=== PATIENT | female | born 1945 | race Caucasian/White ===

== ENCOUNTER → 2016-11-14 | Outpatient (CLI) | payer BC ==
[~2016-11-14] MED LIST: ANAS1TAB19 PO; ASCO10003 PO; ASPI325T39 PO; CALC600T9 PO; CHOL2000 PO; IBUP-1050 PO; MULT-513 PO; OMEG1CAP26 PO; OSTEO BI FLEX PO
[2016-11-14 13:49] VITALS: BP_SYST 129; BP_SYST 144; BP_DIAS 77; BP_DIAS 80; PULSE 56; TEMP 36.3; O2SAT 99
--- NOTE | 2016-11-14 14:48 | Radiation Oncology Follow-Up ---
Radiation Oncology Follow-Up Date of Visit Nov 14, 2016. 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 She had been having concerns about weight loss. She also had a firm area below the incision line for which she was concerned. There was no pain associated. On examination of fibrous tissue was noted. She had been scheduled for mammography 10/26/2016. We asked her to go ahead with evaluation and see us post-imaging for review. She has been doing well and feels that the area of fibrous tissue is unchanged from previous. She has not developed any changes of the axilla. She's had no swelling of her arm. We had discussed an evaluation by her primary physician due to the weight loss. She did have thyroid function studies and these were found to be normal. Allergies Coded Allergies: Molds and Smuts (Verified Allergy, Intermediate, SHORTNESS OF BREATH, 08/10) nasal congestion Shellfish (Verified Allergy, Unknown, Indigestion, 09/13/14) Penicillins (Verified Adverse Reaction, Unknown, GI UPSET, 09/13/14) Home Medications Scheduled Anastrozole (Arimidex), 1 MG PO DAILY Ascorbic Acid (Vitamin C), 1 TAB PO DAILY Aspirin (Aspirin Ec), 325 MG PO DAILY Calcium Carbonate-Vitamin D (Calcium + D), 1 TAB PO BID Cholecalciferol (Vitamin D3), 2,000 UNIT PO DAILY Multivitamins/Minerals (Mvi With Minerals), 1 TAB PO DAILY [place]-3 Fatty Acids ([place]-3 Fish Oil), 1 CAP PO DAILY [osteo bi-Flex], 1 TAB PO DAILY Scheduled PRN Ibuprofen (Advil), 200 MG PO TID PRN for Pain Review of Systems Gastrointestinal: Symptoms: WNL Oral: Symptoms: No Problems Respiratory: Symptoms: WNL Urinary: Symptoms: WNL Skin: Symptoms: No Problems Breast: Right Upper Arm Measurement: 25.5 Right Mid Arm Measurement: 23.5 Right Wrist Measurement: 15.5 Left Upper Arm Measurement: 26.5 Left Mid Arm Measurement: 23.3 Left Wrist Measurement: 15.0 Arm Dominence: Right Physical Exam Vital Signs Date Time Temp Pulse Resp B/P Pulse Ox O2 Delivery O2 Flow Rate FiO2 11/14/16 13:49 36.3 56 16 144/80 99 129/77 Fatigue: None General Appearance: no apparent distress, + thin Eyes: normal inspection, EOMI ENT: normal ENT inspection, hearing grossly normal Neck: no adenopathy, thyroid normal Respiratory/Chest: lungs clear, no respiratory distress, no accessory muscle use Breast: Breast examination reveals well-healed incisions of the right breast. She continues to have a firm area of nodular fibrous tissue just below the central portion of the incision line. There are no areas of tenderness. There is no axillary adenopathy. This is unchanged from previous. She has mild telangiectasis in the inframammary fold which is unchanged. Using the [place] score cosmesis she has a good outcome. The left breast showed no masses or tenderness and no axillary adenopathy. Cardiovascular: regular rate, rhythm, no gallop, no murmur Abdomen: non tender Extremities: no pedal edema Neurologic/Psychiatric: no motor/sensory deficits, alert, normal mood/affect Skin: warm/dry Lymphatic: no adenopathy Laboratory Studies She brought thyroid function studies today for review. She did TSH that was 2.89 and a T4 that was 0.91 use were both within normal limits. Additional Studies BILATERAL DIGITAL DIAGNOSTIC MAMMOGRAM TOMOSYNTHESIS WITH CAD AND TARGETED RIGHT ULTRASOUND: 10/26/2016 CLINICAL HISTORY: History of right breast cancer status post right lumpectomy, here for routine follow-up. The patient has lost approximately 25 pounds in the last year. She reports that the surgical bed feels more prominent to her than it was previously, which she feels could be due to her weight loss. TECHNIQUE: Breast tomosynthesis in addition to standard 2D mammography was performed. Current study was also evaluated with a Computer Aided Detection (CAD ) system. Bilateral CC and MLO 2-D and tomosynthesis views and spot magnification right cc and ML views were obtained. COMPARISON: Comparison is made to exams dated: 10/19/2015 ultrasound, 2014 mammogram, 04/06/2015 ultrasound, 04/06/2015 mammogram, 08/18/2014 mammogram, and 08/06/2014 ultrasound - [facility]. BREAST COMPOSITION: There are scattered areas of fibroglandular density in both breasts. FINDINGS: There are stable post surgical changes in the right central breast from prior lumpectomy, including stable density, architectural distortion, and surgical clips at the lumpectomy bed. The density at the lumpectomy bed is stable compared to the October 2015 exam but decreased since the April 2015 exam. Spot magnification views of the lumpectomy bed demonstrate no suspicious masses or clusters of calcifications. The remainder of both breasts are stable compared to prior exams, without suspicious masses, calcifications, or areas of architectural distortion noted. Targeted ultrasound was performed of the lumpectomy bed in the right 6:00 breast , at the site of the increased prominence pointed out by the patient. There is a complex fluid collection noted at the lumpectomy bed which appears decreased compared to the prior exam, currently measuring 1.3 x 0.6 x 1.2 cm, previously measuring 2.0 x 0.4 x 2.2 cm. Echogenic material and septations are now seen within the collection, which can be seen with a chronic fluid collection. Findings are benign and most compatible with a postsurgical seroma. No suspicious masses or other suspicious sonographic abnormalities are evident at the lumpectomy bed. IMPRESSION: ACR BI-RADS CATEGORY 2: BENIGN, TARGETED ULTRASOUND ACR BI-RADS CATEGORY 2: BENIGN Expected post surgical changes in the right breast from prior lumpectomy, with interval decrease in size of the small postsurgical seroma at the lumpectomy bed. There is no mammographic evidence of malignancy in either breast. Recommend clinical follow-up for the increased prominence of the surgical bed on palpation, which could be due to interval weight loss; any decision to biopsy should be based on clinical grounds. Also recommend routine bilateral mammograms in one year. The patient has been verbally notified of the results. Approximately 10% of breast cancers are not detected with mammography. A negative mammographic report should not delay biopsy if a clinically suggestive mass is present. Regina Castañeda M.D. /:10/26/2016 12:08:44 Wash Box Operator: Nicci Kiran, [facility] letter sent: Normal 1/2 BI-RADS Code: ACR BI-RADS Category 2: Benign Ultrasound BI-RADS: ACR BI-RADS Category 2: Benign Dictated by: Regina Castañeda MD Signed by: Regina Castañeda MD Assessment & Plan Plan: Her imaging studies were reviewed. She'll be due for recheck mammography in October. This has been scheduled. Continue regular follow-up with medical oncology, Dr. Roberts, and Dr. Yee. We asked to return to our office in 1 year. She continues on Arimidex. We did review the availability of low density CT scanning for screening. She continues to smoke. She states she is down to 1 cigarette per day. She'll continue to try to stop smoking. We have given her information about the program. I've asked her to call if she would like to be scheduled for a visit and to discuss the low density scanning. This would be a "shared decision-making" visit. She would then go on to have this scan scheduled and performed. She is going to think about this and let us know. Total Time In Follow-Up I spent 20 minutes speaking to the patient and performing examination. I spent 15 minutes reviewing information in completing this note. Copy To Dimas Yee MD; Bettina Gilmore CRNP; Irving Deal M.D. Problem Qualifiers (1) Breast cancer: Breast location: lower outer quadrant of breast Patient gender: female Laterality: right Qualified Codes: C50.511 - Malignant neoplasm of lower- outer quadrant of right female breast
== END | disposition home or self-care (01) ==
LOC: C.ONC 13:42
PROVIDERS: ATTEND Radiology Radiation Oncology
DX: Z08 Encounter for follow-up examination after completed treatment for malignant neoplasm (principal); Z92.3 Personal history of irradiation; Z85.3 Personal history of malignant neoplasm of breast

== ENCOUNTER → 2017-09-24 | Outpatient (CLI) | payer BC ==
--- NOTE | 2017-09-27 08:14 | MAMMOGRAPHY REPORT ---
BILATERAL DIGITAL DIAGNOSTIC MAMMOGRAM TOMOSYNTHESIS WITH CAD AND TARGETED RIGHT ULTRASOUND: 09/24/20 17 CLINICAL HISTORY: History of right breast cancer status post right lumpectomy, here for routine follo w-up. The patient again reports weight loss over the past few years, which she attributes to her Daron midex. She denies any new palpable lumps or other new complaints. TECHNIQUE: Breast tomosynthesis in addition to standard 2D mammography was performed. Current study was also evaluated with a Computer Aided Detection (CAD) system. Bilateral CC and MLO 2-D and tomosy nthesis images and spot magnification right cc and ML views were obtained. COMPARISON: Comparison is made to exams dated: 10/26/2016 ultrasound, 10/26/2016 mammogram, 10/19/20 15 mammogram, 10/19/2015 ultrasound, 04/06/2015 mammogram, and 08/06/2014 mammogram - [facility]. BREAST COMPOSITION: There are scattered areas of fibroglandular density in both breasts. FINDINGS: Again noted are post surgical changes in the right central breast from prior lumpectomy, i ncluding density, architectural distortion, and surgical clips at the lumpectomy bed. Spot magnifica tion views of the lumpectomy bed demonstrate a new small 3 mm cluster of coarse heterogeneous calcifi cations at the anterior aspect of the lumpectomy bed. The calcifications are shown to be within a ro und circumscribed 4 mm fat density mass on the cc tomosynthesis images, consistent with an oil cyst f rom fat necrosis. The calcifications are probably benign and likely represent fat necrosis. A vague 11 mm asymmetry is seen within the right lateral breast on the cc view, which likely represen ts normal fibroglandular tissue although ultrasound was performed. The remainder of both breasts are stable compared to prior exams, without suspicious masses, calcifications, or areas of architectural distortion noted. There is diffusely increased density of bilateral breasts compared to prior exams , consistent with interval weight loss. Targeted ultrasound was performed of the right lateral breast in the region of the mammographic asymm etry. No suspicious masses or other suspicious sonographic abnormalities are evident. There is ill- defined hypoechoic tissue at the surgical bed in the right 6 to 7:00 breast, consistent with postsurg ical changes. Given the lack of a suspicious sonographic abnormality, the right lateral breast asymm etry is benign and compatible with normal fibroglandular tissue. IMPRESSION: ACR-BI-RADS CATEGORY 3: PROBABLY BENIGN, TARGETED ULTRASOUND ACR-BI-RADS CATEGORY 3: PRO BABLY BENIGN 1. New small 3 mm cluster of calcifications at the anterior aspect of the lumpectomy bed, which are probably benign and likely represent fat necrosis. Recommend follow-up diagnostic tomosynthesis mamm ograms of the right breast in 6 months to confirm stability. 2. No mammographic evidence of malignancy in the left breast. Advise follow up in one year. The patient has been verbally notified of the results. Approximately 10% of breast cancers are not detected with mammography. A negative mammographic report should not delay biopsy if a clinically suggestive mass is present. Regina Castañeda M.D. ah/:09/24/2017 15:18:18 Spar Finisher: Angela HAHN)(Jessica), [facility] letter sent: Follow Up Recommended 3 BI-RADS Code: ACR-BI-RADS Category 3: Probably Benign Ultrasound BI-RADS: ACR-BI-RADS Category 3: Pr obably Benign
== END | disposition home or self-care (01) ==
LOC: C.MAMM 13:41
PROVIDERS: ATTEND Nurse Practitioner Family
DX: Z08 Encounter for follow-up examination after completed treatment for malignant neoplasm (principal); Z85.3 Personal history of malignant neoplasm of breast; R92.1 Mammographic calcification found on diagnostic imaging of breast

== ENCOUNTER → 2017-11-14 | Outpatient (CLI) | payer BC ==
[~2017-11-14] MED LIST changes: +PSYL48.59 PO
[2017-11-14 13:13] VITALS: BP 106/61; PULSE 63; TEMP 36.3; O2SAT 95
--- NOTE | 2017-11-14 14:06 | Radiation Oncology Follow-Up ---
Radiation Oncology Follow-Up Date of Visit Nov 14, 2017. Reason For Visit Annual follow up Radiation Completion Date finished 01-03-2015 Diagnosis (1) Breast cancer Status: Resolved Onset Date: 08/18/2014 Histology Subtype: ductal Stage: ll Permanent Comment: Family history of breast cancer Self detected right breast mass Status post ultrasound-guided biopsy 08/18/2014 revealing invasive ductal carcinoma Estrogen receptor positive, progesterone receptor positive, HER-2/luisa negative Status post right partial mastectomy and sentinel lymph node biopsy 09/13/2014 Pathologic stage pTIc pN1 M0 Oncotype DX score of 10 Status post completion of radiation therapy 01/03/2015 received 6120 cGy Last Edited By: Keeley Sher on Nov 14, 2017 14:16 Interim History She has been doing well over this past year. She has noted no changes to her breast. She has an area of fibrous tissue in the inframammary fold in this unchanged from previous. She has no masses or tenderness and no change in the axilla. She's had no swelling of her arm. She is up-to-date on mammography. She is on Arimidex. Her only side effect is dryness of the skin and constipation. She did undergo a colonoscopy recently and this showed diverticulosis. She has been trying to increase fiber in the diet to help with constipation. Allergies Coded Allergies: Molds and Smuts (Verified Allergy, Intermediate, SHORTNESS OF BREATH, 08/10) nasal congestion Shellfish (Verified Allergy, Unknown, Indigestion, 09/13/14) Penicillins (Verified Adverse Reaction, Unknown, GI UPSET, 09/13/14) Home Medications Scheduled Anastrozole (Arimidex), 1 MG PO DAILY Ascorbic Acid (Vitamin C), 1 TAB PO DAILY Aspirin (Aspirin Ec), 325 MG PO DAILY Calcium Carbonate-Vitamin D (Calcium + D), 1 TAB PO BID Multivitamins/Minerals (Mvi With Minerals), 1 TAB PO DAILY [place]-3 Fatty Acids ([place]-3 Fish Oil), 1 CAP PO DAILY Psyllium (Metamucil), 1 TSP PO DAILY [osteo bi-Flex], 1 TAB PO DAILY Scheduled PRN Ibuprofen (Advil), 200 MG PO TID PRN for Pain Review of Systems Gastrointestinal: Symptoms: Constipation GI Comments: chronic constipation takes metamucil daily Oral: Symptoms: No Problems Respiratory: Symptoms: Moist Cough Other Respiratory: " I am getting over a cold " Urinary: Symptoms: Nocturia Comments: nocturia times 3 Skin: Symptoms: No Problems Other Skin Symptoms: " dry " Breast: Right Upper Arm Measurement: 22.5 Right Mid Arm Measurement: 21.5 Right Wrist Measurement: 15.0 Left Upper Arm Measurement: 23.5 Left Mid Arm Measurement: 21.5 Left Wrist Measurement: 14.5 Arm Dominence: Right Patient Cosmetic Evaluation: Excellent Staff Cosmetic Evalaluation: Excellent Physical Exam Vital Signs Date Time Temp Pulse Resp B/P (MAP) Pulse Ox O2 Delivery O2 Flow Rate FiO2 11/14/17 13:13 36.3 63 18 106/61 95 Fatigue: None General Appearance: no apparent distress Eyes: normal inspection, EOMI ENT: normal ENT inspection, hearing grossly normal Neck: no adenopathy, thyroid normal Respiratory/Chest: lungs clear, no respiratory distress, no accessory muscle use Breast: Breast examination reveals well-healed incisions of the right breast. In the inframammary fold there is area of fibrous tissue in the center of the incision line. This is similar to previous examination. She has no skin retractions or nipple changes. There is no axillary adenopathy. Using the [place] score cosmesis she has a good outcome. Left breast showed no masses or tenderness and no axillary adenopathy. Cardiovascular: regular rate, rhythm, no gallop, no murmur Extremities: no pedal edema Neurologic/Psychiatric: no motor/sensory deficits, alert, normal mood/affect Skin: warm/dry Pain Management Patient Reports Pain: No Side: Bilateral Patient Preferred Pain Scale: 0 - 10 Initial Pain Intensity: 0.0 Pain Management Plan She denied pain therefore requires no pain management. Laboratory Laboratory Results: not applicable Pathology Pathology Results: not applicable Imaging Imaging Studies: were reviewed, and pertinent findings noted below Imaging Comments Patient: NANCY GOODEN [facility] Rec: [id number] Address[address]: [address] Address[address]: [address] Ac[address] ID: [id number] Date: 1945 Sex: F Ref Phy: Keeley Sher PA-C Att Phy: Suzanne Gimenez CRNP [place] Phy: Dimas Yee MD Inter Phy: Regina Castañeda MD [facility] Zip: [place] [address] SC: [id number] Report #: [id number] Whipped Topping Finisher: VANNESSA Diagnosis: 12 MONTH F/U; HX BREAST CA Service Date: 09/24/17 MNE: [id number] Ordering Dr: Suzanne Gimenez CC: Suzanne Gimenez .SAMARA CONF: DICTATED BY: Regina Castañeda MD MAMMOGRAPHY REPORT BILATERAL DIGITAL DIAGNOSTIC MAMMOGRAM TOMOSYNTHESIS WITH CAD AND TARGETED RIGHT ULTRASOUND: 09/24/2017 CLINICAL HISTORY: History of right breast cancer status post right lumpectomy, here for routine follow-up. The patient again reports weight loss over the past few years, which she attributes to her Arimidex. She denies any new palpable lumps or other new complaints. TECHNIQUE: Breast tomosynthesis in addition to standard 2D mammography was performed. Current study was also evaluated with a Computer Aided Detection (CAD ) system. Bilateral CC and MLO 2-D and tomosynthesis images and spot magnification right cc and ML views were obtained. COMPARISON: Comparison is made to exams dated: 10/26/2016 ultrasound, 2015 mammogram, 10/19/2015 mammogram, 10/19/2015 ultrasound, 04/06/2015 mammogram , and 08/06/2014 mammogram - [facility]. BREAST COMPOSITION: There are scattered areas of fibroglandular density in both breasts. FINDINGS: Again noted are post surgical changes in the right central breast from prior lumpectomy, including density, architectural distortion, and surgical clips at the lumpectomy bed. Spot magnification views of the lumpectomy bed demonstrate a new small 3 mm cluster of coarse heterogeneous calcifications at the anterior aspect of the lumpectomy bed. The calcifications are shown to be within a round circumscribed 4 mm fat density mass on the cc tomosynthesis images, consistent with an oil cyst from fat necrosis. The calcifications are probably benign and likely represent fat necrosis. A vague 11 mm asymmetry is seen within the right lateral breast on the cc view, which likely represents normal fibroglandular tissue although ultrasound was performed. The remainder of both breasts are stable compared to prior exams, without suspicious masses, calcifications, or areas of architectural distortion noted. There is diffusely increased density of bilateral breasts compared to prior exams, consistent with interval weight loss. Targeted ultrasound was performed of the right lateral breast in the region of the mammographic asymmetry. No suspicious masses or other suspicious sonographic abnormalities are evident. There is ill-defined hypoechoic tissue at the surgical bed in the right 6 to 7:00 breast, consistent with postsurgical changes. Given the lack of a suspicious sonographic abnormality, the right lateral breast asymmetry is benign and compatible with normal fibroglandular tissue. IMPRESSION: ACR-BI-RADS CATEGORY 3: PROBABLY BENIGN, TARGETED ULTRASOUND ACR-BI -RADS CATEGORY 3: PROBABLY BENIGN 1. New small 3 mm cluster of calcifications at the anterior aspect of the lumpectomy bed, which are probably benign and likely represent fat necrosis. Recommend follow-up diagnostic tomosynthesis mammograms of the right breast in 6 months to confirm stability. 2. No mammographic evidence of malignancy in the left breast. Advise follow up in one year. The patient has been verbally notified of the results. Approximately 10% of breast cancers are not detected with mammography. A negative mammographic report should not delay biopsy if a clinically suggestive mass is present. Regina Castañeda M.D. ah/:09/24/2017 15:18:18 Administrative Support Clerk: Angela BILL(Stacey)(Jessica), [facility] letter sent: Follow Up Recommended 3 BI-RADS Code: ACR-BI-RADS Category 3: Probably Benign Ultrasound BI-RADS: ACR- BI-RADS Category 3: Probably Benign Dictated by: Regina Castañeda MD Signed by: Regina Castañeda MD Assessment & Plan Plan: Continue with scheduled mammography. She continues on the anastrozole. We discussed different types of fiber products. She is going to try Benefiber rather than Metamucil. We discussed the area of fibrous tissue. This was evaluated with mammogram as well as ultrasound in September. The area at the 6 o 'clock position is felt to be postsurgical changes. There is no suspicious sonographic abnormality. We asked her to return to our office in 1 year. She may call she has any questions or concerns in the interim. We once again discussed smoking cessation today. She continues to only smoked 1 or less cigarettes per day. Total Time In Follow-Up I spent 20 minutes speaking to the patient performing examination. I spent 15 minutes reviewing information in completing this note. Copy To Dimas Yee MD; Suzanne Gimenez CRNP Problem Qualifiers (1) Breast cancer: Breast location: lower outer quadrant of breast Estrogen receptor status: positive Patient sex: female Laterality: right Qualified Codes: C50.511 - Malignant neoplasm of lower-outer quadrant of right female breast; Z17.0 - Estrogen receptor positive status [ER+]
== END | disposition home or self-care (01) ==
LOC: C.ONC 13:04
PROVIDERS: ATTEND Physician Assistant Medical
DX: Z08 Encounter for follow-up examination after completed treatment for malignant neoplasm (principal); Z92.3 Personal history of irradiation; Z85.3 Personal history of malignant neoplasm of breast

== ENCOUNTER → 2018-03-24 | Outpatient (CLI) | payer BC ==
[~2018-03-24] MED LIST changes: -CHOL2000 PO
--- NOTE | 2018-03-25 08:47 | MAMMOGRAPHY REPORT ---
UNILATERAL RIGHT DIGITAL DIAGNOSTIC MAMMOGRAM TOMOSYNTHESIS WITH CAD: 03/24/2018 CLINICAL HISTORY: 72-year-old woman with a personal history of right breast cancer status post breast conservation treatment presents for follow-up in the right breast for a small, 3 mm cluster of calci fications along the anterior aspect of the lumpectomy bed, that likely represents fat necrosis. TECHNIQUE: Right breast tomosynthesis in addition to standard 2D mammography was performed. Spot mag nification right CC and ML views were also obtained. Current study was also evaluated with a Compute r Aided Detection (CAD) system. COMPARISON: Comparison is made to exams dated: 09/24/2017 ultrasound, 09/24/2017 mammogram, 10/26/20 16 ultrasound, 10/26/2016 mammogram, 10/19/2015 ultrasound, and 10/19/2015 mammogram - [facility]. BREAST COMPOSITION: There are scattered areas of fibroglandular density in the right breast. FINDINGS: There is expected architectural distortion and surgical clips in the posterior retroareolar right breast, at the site of prior lumpectomy. The 3 mm cluster of calcifications noted at the ante rior aspect of the lumpectomy bed have coarsened comparing to the prior exam and a thin rim with luce nt center surrounding the coarse calcifications are evident on CC tomosynthesis slice 11/40, confirmi ng benign oil cysts/fat necrosis. No new suspicious mass, asymmetry, unexpected architectural distor tion or cluster of microcalcifications is seen. IMPRESSION: ACR BI-RADS CATEGORY 2: BENIGN There are coarsening calcifications within a benign oil cyst at the anterior aspect of the lumpectomy bed in the right breast, compatible with benign fat necrosis due to prior surgery. There is no mamm ographic evidence of malignancy in the right breast. The patient is due for annual bilateral mammogr aphy in September 2018, and would recommend remaining a diagnostic patient in case any additional view s and/or ultrasound may be needed. These results and recommendations were discussed with the patient at the time of the exam. Approximately 10% of breast cancers are not detected with mammography. A negative mammographic report should not delay biopsy if a clinically suggestive mass is present. Keisha Sotomayor M.D. ay/:03/24/2018 10:24:16 Toxicology Supervisor: Nicci BILL(Stacey)(M), [facility] letter sent: Normal 11/05 BI-RADS Code: ACR BI-RADS Category 2: Benign
== END | disposition home or self-care (01) ==
LOC: C.MAMM 09:37
PROVIDERS: ATTEND Nurse Practitioner Family
DX: R92.1 Mammographic calcification found on diagnostic imaging of breast (principal); Z85.3 Personal history of malignant neoplasm of breast

== ENCOUNTER 2025-01-15 08:32 | Inpatient (IN) ==
--- NOTE | 2025-01-15 08:42 | Emergency Department Note ---
Impression & Plan Acute hyponatremia Admission ED Provider Note HPI: History obtained from patient, bedside RN via EMS report. The patient is a 79-year-old female with history of recent subarachnoid hemorrhage, who presents to the emergency department from her nursing facility ([facility]) with a chief complaint of generalized fatigue. Patient states she has felt this way for the past 2 days. Per report, patient had bradycardia in the 40s on EMS arrival and was given atropine with good improvement in her heart rate. On arrival here to the ED the patient is listless appearing but otherwise alert to verbal stimuli, she is able to follow commands, she is oriented to place and time. Patient denies any chest pain or shortness of breath. ROS: - Per HPI Differential Diagnosis: Sepsis, UTI, pneumonia, dehydration/acute kidney injury, intracranial hemorrhage, stroke, amongst other potential pathologies. *Outpatient medications and allergy history reviewed. PE: General: Alert and oriented, no acute distress, frail-appearing HEENT: Normocephalic, trachea midline Eyes: Extraocular eye movement is intact, no scleral erythema Pulmonary: Clear to auscultation bilaterally, no wheezing Cardio: Regular rate and rhythm GI: Abdomen is soft to palpation : No suprapubic tenderness MSK: No evidence of trauma or malformation of the extremities, no edema Skin: No evidence of rash Neuro: Alert, no focal deficits, patient follows commands appropriately Psychiatric: Cooperative INDEPENDENT INTERPRETATIONS: classroom monitor: (As interpreted by myself): - An order was placed for continuous cardiac monitoring - Patient was noted to be in sinus rhythm with a rate of 89 EKG: (As interpreted by myself): Rate: 90 Rhythm: Normal sinus rhythm Intervals: Within normal limits ST changes: No ST elevation Time: 0839 Chest x-ray: (As interpreted by myself): Chronic right pleural effusion, new left lower lobe infiltrate Interventions provided in ED: -IV fluid bolus Medical Decision Making: IV was established and lab work obtained, patient was maintained on surveillance system monitor. Lab work shows no leukocytosis, hemoglobin is normal, platelet count is normal, CMP shows critical hyponatremia at 118, otherwise no evidence of acute kidney injury or critical abnormalities. Troponin is negative. CT imaging of head does not show any evidence of any new acute intracranial hemorrhage. Viral panel testing was obtained and is negative. On my reassessment the patient remained stable, heart rate is within normal limits, EKG per my interpretation here in the ED shows normal sinus rhythm with a rate of 90. No acute ischemic changes are noted. I informed the patient of her lab work findings and she is in agreement for admission, serum and urine osm were sent. I discussed the patient's presentation with the on-call hospitalist, Dr. Mcintyre, the patient was placed for admission in stable condition. Consultants/Discussions held with other healthcare providers: -Hospitalist, Dr. Mcintyre Disposition discussion held by myself with: -Patient Diagnosis: 1. Hyponatremia, acute 2. Generalized weakness, acute Disposition: Admission Hany Pena DO Emergency Medicine Past Med/Surg History Problem List (Updated 01/15/25 @ 14:38 by Hany Pena DO) Acute hyponatremia (Acute) Symptomatic bradycardia Breast cancer of lower-outer quadrant of right female breast (Chronic ~2014) Medical History Breast cancer (08/18/14) Social History Smoking Status: Former smoker Preferred Language: Greenlandic Beliefs That Will Affect Care: None Feels Safe at Home: Yes Allergies Allergies Allergy/AdvReac Type Severity Reaction Status Date / Time mold Allergy Intermediate SHORTNESS Verified 11/13/18 13:41 OF BREATH shellfish derived Allergy Unknown Indigestion Verified 11/13/18 13:41 Penicillins AdvReac Unknown GI UPSET Verified 11/13/18 13:41 Home Meds Home Medications Medication Instructions Recorded Confirmed Vitamin C 1 tab PO DAILY ##0 08/25/14 01/15/25 calcium 600 mg (as 1 tab PO DAILY ##0 08/25/14 01/15/25 carbonate)-vitamin D3 5 mcg (200 unit) tablet acetaminophen 500 mg tablet 1,000 mg PO Q8H 01/15/25 01/15/25 brivaracetam 50 mg tablet 50 mg PO Q12H 01/15/25 01/15/25 (Briviact) diclofenac sodium 1 % topical gel 1 ea topical QID PRN Pain 01/15/25 01/15/25 empagliflozin 10 mg tablet 10 mg PO DAILY 01/15/25 01/15/25 (Jardiance) enoxaparin 30 mg/0.3 mL 30 mg subcut UD 01/15/25 01/15/25 subcutaneous syringe famotidine 20 mg tablet 20 mg PO UD 01/15/25 01/15/25 lidocaine 4 % topical patch 1 patch topical DAILY 01/15/25 01/15/25 lisinopril 5 mg tablet 5 mg PO DAILY 01/15/25 01/15/25 metoprolol succinate 50 mg 50 mg PO DAILY 01/15/25 01/15/25 tablet,extended release 24 hr ondansetron 4 mg disintegrating 4 mg PO TID PRN n/v 01/15/25 01/15/25 tablet paroxetine HCl 10 mg tablet 10 mg PO DAILY 01/15/25 01/15/25 polyethylene glycol 3350 17 17 g PO BID 01/15/25 01/15/25 gram/dose oral powder (Miralax) rivaroxaban 20 mg tablet (Xarelto) 20 mg PO DAILY 01/15/25 01/15/25 simethicone 80 mg chewable tablet 80 mg PO BID 01/15/25 01/15/25 spironolactone 25 mg tablet 12.5 mg PO DAILY 01/15/25 01/15/25 Results & Data (ED) Vital Signs Vital Signs - 24 hr 01/15/25 08:41 01/15/25 08:42 01/15/25 09:20 Temperature 36.9 C Temperature Source Oral Pulse Rate 86 88 Pulse Rate [Apical] Pulse Rhythm [Apical] Pulse Strength [Apical] Respiratory Rate 19 Respiratory Effort / Characteristics Non-Labored Spontaneous Respiratory Depth Normal Respiratory Pattern Regular Blood Pressure 151/97 H Blood Pressure [Left Arm] Blood Pressure Mean 115 Blood Pressure Mean [Left Arm] Blood Pressure Position [Left Arm] Pulse Oximetry 94 95 Oxygen Delivery Method Room Air Room Air Sepsis Recent Fever Within 48 Hours No Sepsis New/Unexplained Change in Mental Status No Sepsis Action Taken by Nursing No Action Required 01/15/25 09:20 01/15/25 10:11 01/15/25 11:03 Temperature Temperature Source Pulse Rate Pulse Rate [Apical] 75 67 63 Pulse Rhythm [Apical] Regular Pulse Strength [Apical] Normal Normal Normal Respiratory Rate 18 19 18 Respiratory Effort / Characteristics Non-Labored Spontaneous Non-Labored Spontaneous Non-Labored Spontaneous Respiratory Depth Normal Normal Normal Respiratory Pattern Regular Regular Regular Blood Pressure Blood Pressure [Left Arm] 129/89 137/90 131/86 Blood Pressure Mean Blood Pressure Mean [Left Arm] 102 105 101 Blood Pressure Position [Left Arm] Pulse Oximetry 95 99 100 Oxygen Delivery Method Room Air Room Air Room Air Sepsis Recent Fever Within 48 Hours Sepsis New/Unexplained Change in Mental Status Sepsis Action Taken by Nursing 01/15/25 11:15 01/15/25 11:30 01/15/25 11:45 Temperature Temperature Source Pulse Rate Pulse Rate [Apical] 61 64 55 L Pulse Rhythm [Apical] Regular Pulse Strength [Apical] Normal Respiratory Rate 16 24 18 Respiratory Effort / Characteristics Non-Labored Non-Labored Non-Labored Respiratory Depth Normal Normal Normal Respiratory Pattern Regular Blood Pressure Blood Pressure [Left Arm] 147/87 H 135/80 132/80 Blood Pressure Mean Blood Pressure Mean [Left Arm] 107 98 97 Blood Pressure Position [Left Arm] Lying Lying Lying Pulse Oximetry 100 92 100 Oxygen Delivery Method Room Air Room Air Room Air Sepsis Recent Fever Within 48 Hours Sepsis New/Unexplained Change in Mental Status Sepsis Action Taken by Nursing 01/15/25 12:00 01/15/25 12:15 01/15/25 12:30 Temperature Temperature Source Pulse Rate Pulse Rate [Apical] 52 L 52 L 51 L Pulse Rhythm [Apical] Pulse Strength [Apical] Respiratory Rate 22 15 17 Respiratory Effort / Characteristics Non-Labored Non-Labored Respiratory Depth Normal Normal Respiratory Pattern Blood Pressure Blood Pressure [Left Arm] 130/80 124/81 122/84 Blood Pressure Mean Blood Pressure Mean [Left Arm] 96 95 96 Blood Pressure Position [Left Arm] Sitting Sitting Pulse Oximetry 100 100 99 Oxygen Delivery Method Room Air Room Air Room Air Sepsis Recent Fever Within 48 Hours Sepsis New/Unexplained Change in Mental Status Sepsis Action Taken by Nursing 01/15/25 12:37 01/15/25 12:45 01/15/25 13:00 Temperature Temperature Source Pulse Rate 52 L Pulse Rate [Apical] 50 L 55 L Pulse Rhythm [Apical] Pulse Strength [Apical] Respiratory Rate 20 21 Respiratory Effort / Characteristics Non-Labored Non-Labored Respiratory Depth Normal Normal Respiratory Pattern Regular Blood Pressure Blood Pressure [Left Arm] 134/76 136/96 Blood Pressure Mean Blood Pressure Mean [Left Arm] 95 109 Blood Pressure Position [Left Arm] Sitting Sitting Pulse Oximetry 100 99 Oxygen Delivery Method Room Air Room Air Sepsis Recent Fever Within 48 Hours Sepsis New/Unexplained Change in Mental Status Sepsis Action Taken by Nursing 01/15/25 13:15 01/15/25 13:30 01/15/25 13:45 Temperature Temperature Source Pulse Rate Pulse Rate [Apical] 48 L 47 L 45 L Pulse Rhythm [Apical] Pulse Strength [Apical] Respiratory Rate 17 15 12 Respiratory Effort / Characteristics Non-Labored Non-Labored Respiratory Depth Normal Normal Normal Respiratory Pattern Blood Pressure Blood Pressure [Left Arm] 141/74 H 126/74 119/70 Blood Pressure Mean Blood Pressure Mean [Left Arm] 96 91 86 Blood Pressure Position [Left Arm] Pulse Oximetry 100 100 99 Oxygen Delivery Method Room Air Room Air Room Air Sepsis Recent Fever Within 48 Hours Sepsis New/Unexplained Change in Mental Status Sepsis Action Taken by Nursing 01/15/25 14:00 01/15/25 14:15 Temperature Temperature Source Pulse Rate Pulse Rate [Apical] 48 L 48 L Pulse Rhythm [Apical] Regular Regular Pulse Strength [Apical] Normal Normal Respiratory Rate 15 18 Respiratory Effort / Characteristics Non-Labored Non-Labored Respiratory Depth Normal Normal Respiratory Pattern Regular Blood Pressure Blood Pressure [Left Arm] 154/82 H 144/81 H Blood Pressure Mean Blood Pressure Mean [Left Arm] 106 102 Blood Pressure Position [Left Arm] Lying Pulse Oximetry 100 99 Oxygen Delivery Method Room Air Room Air Sepsis Recent Fever Within 48 Hours Sepsis New/Unexplained Change in Mental Status Sepsis Action Taken by Nursing Laboratory Data 01/15/25 08:50 01/15/25 11:09 Lab Results 01/15/25 01/15/25 01/15/25 Range/Units 08:40 08:50 09:11 WBC 7.40 (4.8-10.8) K/ul RBC 4.76 (4.20-5.40) M/uL Hgb 14.9 (12.0-16.0) g/dl Hct 41.6 (37.0-47.0) % MCV 87.4 (80.0-100.0) fL MCH 31.3 (25.0-34.0) pg MCHC 35.8 (32.0-36.0) g/dL RDW Std Deviation 44.0 (36.4-46.3) fL RDW Coeff of Francisco 13.7 (11.5-14.5) % Plt Count 279 (130-400) K/uL MPV 9.0 L (9.4-12.4) fL Immature Gran % (Auto) 0.4 % Neut % (Auto) 85.6 % Lymph % (Auto) 5.5 % Swain % (Auto) 6.5 % Eos % (Auto) 1.9 % Baso % (Auto) 0.1 % Neut # (Auto) 6.33 (1.40-6.50) K/uL Lymph # (Auto) 0.41 L (1.20-3.40) K/uL Swain # (Auto) 0.48 (0.11-0.59) K/uL Eos # (Auto) 0.14 (0.00-0.50) K/uL Baso # (Auto) 0.01 (0.00-0.20) K/uL Immature Gran # (Auto) 0.03 (0.01-0.20) K/uL PT 12.5 H (9.0-12.0) Seconds INR 1.2 H (0.9-1.1) VBG pH 7.29 L (7.36-7.41) VBG pCO2 50 (38-50) mmHg VBG pO2 38 mmHg VBG HCO3 24 mmol/L VBG O2 Saturation 64.2 % VBG Base Excess -3.1 mEq/L Sodium 118 L* (136-145) mmol/L Potassium 4.7 (3.5-5.1) mmol/L Chloride 87 L (98-107) mmol/L Carbon Dioxide 27 (21-32) mmol/L Anion Gap 4 (3-11) BUN 21 (6-23) mg/dl Creatinine 0.53 L (0.6-1.2) mg/dl Est Cr Clr Drug Dosing 78.7 ml/min eGFR 94.60 BUN/Creatinine Ratio 39.6 H (10-20) Glucose 178 H (70-99(Fasting)) mg/dl POC Glucose 48 L* (70-99) mg/dl Osmolality 259 L (280-300) mOsm/kg Lactate 1.7 (0.4-2.0) mmol/L Calcium 8.6 (8.6-10.3) mg/dl Magnesium 1.8 (1.7-2.4) mg/dl Total Bilirubin 0.9 (0.2-1.0) mg/dl Direct Bilirubin TNP AST 29 (13-39) U/L ALT 18 (7-52) U/L Alkaline Phosphatase 91 (34-104) U/L Troponin I High Sens 3.6 (0-14) pg/ml Total Protein 5.2 L (6.0-8.3) gm/dl Albumin 3.1 L (3.4-5.0) gm/dl Procalcitonin 0.04 (0-0.5) ng/ml TSH (0.300-4.500) uIu/ml Free T4 (0.61-1.60) ng/dl Urine Color Urine Appearance (Clear) Urine pH (4.5-7.5) Ur Specific Cary (1.000-1.030) Urine Protein (Negative) Urine Glucose (UA) (Negative) Urine Ketones (Negative) Urine Blood (Negative) Urine Nitrite (Negative) Urine Bilirubin (Negative) Urine Urobilinogen (Negative) Ur Leukocyte Esterase (Negative) Urine Osmolality (500-800) mOsm/kg Ur Random Sodium mmol/L Adenovirus (PCR) (NotDetected) B. pertussis DNA (PCR) (NotDetected) B.parapertussis DNA PCR (NotDetected) C. pneumoniae DNA (PCR) (NotDetected) Coronavirus OC43 (PCR) (NotDetected) Coronavirus HKU1 (PCR) (NotDetected) Coronavirus 229E (PCR) (NotDetected) SARS-CoV-2 (PCR) (NotDetected) Coronavirus NL63 (PCR) (NotDetected) Human Metapneumovir PCR (NotDetected) Influenza Type A (PCR) (NotDetected) Influenza Type B (PCR) (NotDetected) M. pneumoniae (PCR) (NotDetected) Parainfluenza 1 (PCR) (NotDetected) Parainfluenza 2 (PCR) (NotDetected) Parainfluenza 3 (PCR) (NotDetected) Parainfluenza 4 (PCR) (NotDetected) RSV (PCR) (NotDetected) Entero/Rhino (PCR) (NotDetected) 01/15/25 01/15/25 01/15/25 Range/Units 09:17 10:00 10:11 WBC (4.8-10.8) K/ul RBC (4.20-5.40) M/uL Hgb (12.0-16.0) g/dl Hct (37.0-47.0) % MCV (80.0-100.0) fL MCH (25.0-34.0) pg MCHC (32.0-36.0) g/dL RDW Std Deviation (36.4-46.3) fL RDW Coeff of Francisco (11.5-14.5) % Plt Count (130-400) K/uL MPV (9.4-12.4) fL Immature Gran % (Auto) % Neut % (Auto) % Lymph % (Auto) % Swain % (Auto) % Eos % (Auto) % Baso % (Auto) % Neut # (Auto) (1.40-6.50) K/uL Lymph # (Auto) (1.20-3.40) K/uL Swain # (Auto) (0.11-0.59) K/uL Eos # (Auto) (0.00-0.50) K/uL Baso # (Auto) (0.00-0.20) K/uL Immature Gran # (Auto) (0.01-0.20) K/uL PT (9.0-12.0) Seconds INR (0.9-1.1) VBG pH (7.36-7.41) VBG pCO2 (38-50) mmHg VBG pO2 mmHg VBG HCO3 mmol/L VBG O2 Saturation % VBG Base Excess mEq/L Sodium (136-145) mmol/L Potassium (3.5-5.1) mmol/L Chloride (98-107) mmol/L Carbon Dioxide (21-32) mmol/L Anion Gap (3-11) BUN (6-23) mg/dl Creatinine (0.6-1.2) mg/dl Est Cr Clr Drug Dosing ml/min eGFR BUN/Creatinine Ratio (10-20) Glucose (70-99(Fasting)) mg/dl POC Glucose 115 H (70-99) mg/dl Osmolality (280-300) mOsm/kg Lactate (0.4-2.0) mmol/L Calcium (8.6-10.3) mg/dl Magnesium (1.7-2.4) mg/dl Total Bilirubin (0.2-1.0) mg/dl Direct Bilirubin AST (13-39) U/L ALT (7-52) U/L Alkaline Phosphatase (34-104) U/L Troponin I High Sens (0-14) pg/ml Total Protein (6.0-8.3) gm/dl Albumin (3.4-5.0) gm/dl Procalcitonin (0-0.5) ng/ml TSH (0.300-4.500) uIu/ml Free T4 (0.61-1.60) ng/dl Urine Color Yellow Urine Appearance Clear (Clear) Urine pH 5.5 (4.5-7.5) Ur Specific [place] 1.017 (1.000-1.030) Urine Protein Negative (Negative) Urine Glucose (UA) 3+ H (Negative) Urine Ketones Negative (Negative) Urine Blood Negative (Negative) Urine Nitrite Negative (Negative) Urine Bilirubin Negative (Negative) Urine Urobilinogen Negative (Negative) Ur Leukocyte Esterase Negative (Negative) Urine Osmolality 444 L (500-800) mOsm/kg Ur Random Sodium 31 mmol/L Adenovirus (PCR) (NotDetected) B. pertussis DNA (PCR) (NotDetected) B.parapertussis DNA PCR (NotDetected) C. pneumoniae DNA (PCR) (NotDetected) Coronavirus OC43 (PCR) (NotDetected) Coronavirus HKU1 (PCR) (NotDetected) Coronavirus 229E (PCR) (NotDetected) SARS-CoV-2 (PCR) (NotDetected) Coronavirus NL63 (PCR) (NotDetected) Human Metapneumovir PCR (NotDetected) Influenza Type A (PCR) (NotDetected) Influenza Type B (PCR) (NotDetected) M. pneumoniae (PCR) (NotDetected) Parainfluenza 1 (PCR) (NotDetected) Parainfluenza 2 (PCR) (NotDetected) Parainfluenza 3 (PCR) (NotDetected) Parainfluenza 4 (PCR) (NotDetected) RSV (PCR) (NotDetected) Entero/Rhino (PCR) (NotDetected) 01/15/25 01/15/25 Range/Units 11:09 Unknown WBC (4.8-10.8) K/ul RBC (4.20-5.40) M/uL Hgb (12.0-16.0) g/dl Hct (37.0-47.0) % MCV (80.0-100.0) fL MCH (25.0-34.0) pg MCHC (32.0-36.0) g/dL RDW Std Deviation (36.4-46.3) fL RDW Coeff of Francisco (11.5-14.5) % Plt Count (130-400) K/uL MPV (9.4-12.4) fL Immature Gran % (Auto) % Neut % (Auto) % Lymph % (Auto) % Swain % (Auto) % Eos % (Auto) % Baso % (Auto) % Neut # (Auto) (1.40-6.50) K/uL Lymph # (Auto) (1.20-3.40) K/uL Swain # (Auto) (0.11-0.59) K/uL Eos # (Auto) (0.00-0.50) K/uL Baso # (Auto) (0.00-0.20) K/uL Immature Gran # (Auto) (0.01-0.20) K/uL PT (9.0-12.0) Seconds INR (0.9-1.1) VBG pH (7.36-7.41) VBG pCO2 (38-50) mmHg VBG pO2 mmHg VBG HCO3 mmol/L VBG O2 Saturation % VBG Base Excess mEq/L Sodium 119 L* (136-145) mmol/L Potassium 4.3 (3.5-5.1) mmol/L Chloride 89 L (98-107) mmol/L Carbon Dioxide 26 (21-32) mmol/L Anion Gap 4 (3-11) BUN 19 (6-23) mg/dl Creatinine 0.57 L (0.6-1.2) mg/dl Est Cr Clr Drug Dosing 73.2 ml/min eGFR 92.96 BUN/Creatinine Ratio 33.3 H (10-20) Glucose 103 H (70-99(Fasting)) mg/dl POC Glucose (70-99) mg/dl Osmolality (280-300) mOsm/kg Lactate (0.4-2.0) mmol/L Calcium 8.9 (8.6-10.3) mg/dl Magnesium (1.7-2.4) mg/dl Total Bilirubin (0.2-1.0) mg/dl Direct Bilirubin AST (13-39) U/L ALT (7-52) U/L Alkaline Phosphatase (34-104) U/L Troponin I High Sens 4.7 (0-14) pg/ml Total Protein (6.0-8.3) gm/dl Albumin (3.4-5.0) gm/dl Procalcitonin (0-0.5) ng/ml TSH 6.627 H (0.300-4.500) uIu/ml Free T4 0.81 (0.61-1.60) ng/dl Urine Color Urine Appearance (Clear) Urine pH (4.5-7.5) Ur Specific Cary (1.000-1.030) Urine Protein (Negative) Urine Glucose (UA) (Negative) Urine Ketones (Negative) Urine Blood (Negative) Urine Nitrite (Negative) Urine Bilirubin (Negative) Urine Urobilinogen (Negative) Ur Leukocyte Esterase (Negative) Urine Osmolality (500-800) mOsm/kg Ur Random Sodium mmol/L Adenovirus (PCR) Not Detected (NotDetected) B. pertussis DNA (PCR) Not Detected (NotDetected) B.parapertussis DNA PCR Not Detected (NotDetected) C. pneumoniae DNA (PCR) Not Detected (NotDetected) Coronavirus OC43 (PCR) Not Detected (NotDetected) Coronavirus HKU1 (PCR) Not Detected (NotDetected) Coronavirus 229E (PCR) Not Detected (NotDetected) SARS-CoV-2 (PCR) Not Detected (NotDetected) Coronavirus NL63 (PCR) Not Detected (NotDetected) Human Metapneumovir PCR Not Detected (NotDetected) Influenza Type A (PCR) Not Detected (NotDetected) Influenza Type B (PCR) Not Detected (NotDetected) M. pneumoniae (PCR) Not Detected (NotDetected) Parainfluenza 1 (PCR) Not Detected (NotDetected) Parainfluenza 2 (PCR) Not Detected (NotDetected) Parainfluenza 3 (PCR) Not Detected (NotDetected) Parainfluenza 4 (PCR) Not Detected (NotDetected) RSV (PCR) Not Detected (NotDetected) Entero/Rhino (PCR) Not Detected (NotDetected) Administered Medications Sodium Chloride (Nss) 1,000 mls @ 100 mls/hr IV .Q10H BETHANY Stop: 01/16/25 08:14 Last Admin: 01/15/25 12:14 Dose: 100 mls/hr Documented By: KARINA Discontinued Medications Dextrose (Dextrose 50% 50 Ml Syringe) Confirm Administered Dose 50 ml IV .STK- MED ONE Stop: 01/15/25 08:41 Last Admin: 01/15/25 08:49 Dose: 50 ml Documented By: SHANNON Sodium Chloride (Nss) 500 mls @ 999 mls/hr IV .Q31M BETHANY Stop: 01/15/25 09:15 Last Infusion: 01/15/25 09:21 Dose: Infused Documented By: Admin: 01/15/25 08:50 Dose: 999 mls/hr Documented By: SHANNON Imaging Data Radiologist's Impression: Chest X-Ray 01/15/25 08:42 XR chest 1V portable CLINICAL HISTORY: Sepsis COMPARISON STUDY: 11/27/2024 FINDINGS: The chronic right pleural effusion is redemonstrated. This been progressive atelectasis of the right lower lobe and probable medial segment of the right middle lobe. There is a patchy infiltrate at the left lung base obscuring the diaphragm. There is a small left pleural effusion. IMPRESSION: Chronic right pleural effusion. Progressive right basilar atelectasis. New infiltrate left lung base. ACT 112: Negative or not required by law. Electronically signed by: Yaima Rowland M.D. 01/15/2025 9:[address] 01/15/25 08:43 CT OF THE HEAD WITHOUT CONTRAST CLINICAL HISTORY: Altered mental status. COMPARISON STUDY: Head CT November 27, 2024. CT DOSE: 625.8 mGy.cm TECHNIQUE: Helical axial images of the head were obtained without IV contrast. Automated exposure control was utilized for the study. A dose lowering technique was utilized adhering to the principles of ALARA. FINDINGS: No acute intracranial hemorrhage, midline shift or mass effect is present. The ventricular system is unremarkable. Basal cisterns are patent. There are no extra-axial collections. A 3.2 x 2.9 cm hypodensity within the left parietal lobe on image 22 of 32 is at site of intraparenchymal hematoma shown on CT of November 27, 2024. This represents expected evolution of hematoma. No new sites of hemorrhage are present. There are no findings to suggest acute dural sinus thrombosis or acute territorial infarct. There are no calvarial fractures. IMPRESSION: 1. No acute intracranial findings. 2. Expected evolution of the left parietal intraparenchymal hematoma shown on CT of November 27, 2024. ACT 112: Negative or not required by law. Electronically signed by: Santhosh Lau M.D. 01/15/2025 9:24 AM Discharge Plan Visit Data Chief Complaint: Weakness Stated Complaint: WEAKNESS, LETHARGIC ED Provider: Hany Pena Discharge Problem: Acute hyponatremia Patient Disposition: Admitted As Inpatient Discharge Instructions Interventions: ED Discharge Assessment Last Done: 01/15/25 13:39 Forms Stand Alone Forms: [facility] [place] [facility] Breath MD Prescriptions Prescriptions: No Action calcium carbonate-vitamin D3 [Calcium + D] 600 mg-5 mcg (200 unit) Tablet 1 tab PO DAILY Qty: 0 Rx Instructions: otc unable to verify Vitamin C 1,000 MG tablet 1 tab PO DAILY Qty: 0 Rx Instructions: otc unable to verify lidocaine 4 % Adhesive Patch,Medicated 1 patch TOPICAL DAILY Rx Instructions: otc unable to verify metoprolol succinate 50 mg tablet extended release 24 hr 50 mg PO DAILY acetaminophen 500 mg Tablet 1,000 mg PO Q8H Rx Instructions: otc unable to verify spironolactone 25 mg tablet 12.5 mg PO DAILY famotidine 20 mg Tablet 20 mg PO UD Rx Instructions: 20 mg po bid. not on file with pharmacy lisinopril 5 mg tablet 5 mg PO DAILY polyethylene glycol 3350 [Miralax] 17 gram/dose Powder 17 g PO BID Rx Instructions: otc unable to verify simethicone 80 mg Tablet,Chewable 80 mg PO BID Rx Instructions: otc unable to verify enoxaparin 30 mg/0.3 mL Syringe 30 mg SUBCUT UD Rx Instructions: 30 mg subcut daily. Not on file with pharmacy diclofenac sodium 1 % Gel 1 ea TOPICAL QID PRN (Reason: Pain) Rx Instructions: otc unable to verify Jardiance 10 mg tablet 10 mg PO DAILY Briviact 50 mg tablet 50 mg PO Q12H Rx Instructions: no refills per pharmacy filled 12/21 paroxetine HCl 10 mg tablet 10 mg PO DAILY Rx Instructions: filled with pharmacy on 12/25 ondansetron 4 mg tablet,disintegrating 4 mg PO TID PRN (Reason: n/v) Xarelto 20 mg tablet 20 mg PO DAILY Rx Instructions: Filled with pharmacy on 12/25 Referrals Referrals: Mary Lizarraga PA-C [Primary Care Provider] -
[2025-01-15] MEDS: DEXTROSE 50% 50 ML SYRINGE IV ONE (08:49)
[2025-01-15] MEDS: SODIUM CHLORIDE 0.9% 500 ML IV SCH (08:50)
--- NOTE | 2025-01-15 09:14 | XRay Report ---
XR chest 1V portable CLINICAL HISTORY: Sepsis COMPARISON STUDY: 11/27/2024 FINDINGS: The chronic right pleural effusion is redemonstrated. This been progressive atelectasis of the right lower lobe and probable medial segment of the right middle lobe. There is a patchy infiltra te at the left lung base obscuring the diaphragm. There is a small left pleural effusion. IMPRESSION: Chronic right pleural effusion. Progressive right basilar atelectasis. New infiltrate le ft lung base. ACT 112: Negative or not required by law. Electronically signed by: Yaima Rowland M.D. 01/15/2025 9:13 AM
[2025-01-15 09:19] LABS: Basophils # (auto) 0.01 K/uL (0.00-0.20); Basophils % (auto) 0.1 %; Eosinophils # (auto) 0.14 K/uL (0.00-0.50); Eosinophils % (auto) 1.9 %; Hematocrit (blood only) 41.6 % (37.0-47.0); Hemoglobin 14.9 g/dl (12.0-16.0); Immature Granulocytes # (auto) 0.03 K/uL (0.01-0.20); Immature Granulocytes % (auto) 0.4 %; Lymphocytes # (auto) 0.41 K/uL (1.20-3.40); Lymphocytes % (auto) 5.5 %; Mean Corpuscular Hemoglobin 31.3 pg (25.0-34.0); Mean Corpuscular Hgb Conc 35.8 g/dL (32.0-36.0); Mean Corpuscular Volume 87.4 fL (80.0-100.0); Monocytes # (auto) 0.48 K/uL (0.11-0.59); Monocytes % (auto) 6.5 %; Neutrophils # (auto) 6.33 K/uL (1.40-6.50); Neutrophils % (auto) 85.6 %; Platelet Count 279 K/uL (130-400); RDW Coefficient of Variation 13.7 % (11.5-14.5); Red Blood Count 4.76 M/uL (4.20-5.40)
--- NOTE | 2025-01-15 09:25 | CT Scan Report ---
CT OF THE HEAD WITHOUT CONTRAST CLINICAL HISTORY: Altered mental status. COMPARISON STUDY: Head CT November 27, 2024. CT DOSE: 625.8 mGy.cm TECHNIQUE: Helical axial images of the head were obtained without IV contrast. Automated exposure con trol was utilized for the study. A dose lowering technique was utilized adhering to the principles o f ALARA. FINDINGS: No acute intracranial hemorrhage, midline shift or mass effect is present. The ventricular system is unremarkable. Basal cisterns are patent. There are no extra-axial collections. A 3.2 x 2.9 cm hypodensity within the left parietal lobe on image 22 of 32 is at site of intraparenchymal hematom a shown on CT of November 27, 2024. This represents expected evolution of hematoma. No new sites of he morrhage are present. There are no findings to suggest acute dural sinus thrombosis or acute territor ial infarct. There are no calvarial fractures. IMPRESSION: 1. No acute intracranial findings. 2. Expected evolution of the left parietal intraparenchymal hematoma shown on CT of November 27, 2024. ACT 112: Negative or not required by law. Electronically signed by: Santhosh Lau M.D. 01/15/2025 9:24 AM
[2025-01-15 09:34] LABS: Alanine Aminotransferase 18 U/L (7-52); Albumin Level 3.1 gm/dl (3.4-5.0); Alkaline Phosphatase 91 U/L (34-104); Anion Gap 4 (3-11); Aspartate Aminotransferase 29 U/L (13-39); BUN Creatinine Ratio 39.6 (10-20); Bilirubin,Total 0.9 mg/dl (0.2-1.0); Blood Urea Nitrogen 21 mg/dl (6-23); Calcium 8.6 mg/dl (8.6-10.3); Carbon Dioxide 27 mmol/L (21-32); Chloride 87 mmol/L (98-107); Creatinine Clr Calc Pharmacy 78.7 ml/min; Glucose 178 mg/dl (70-99(Fasting)); Magnesium 1.8 mg/dl (1.7-2.4); Potassium 4.7 mmol/L (3.5-5.1); Sodium 118 mmol/L (136-145); Total Protein 5.2 gm/dl (6.0-8.3)
[2025-01-15 09:37] LABS: Troponin I High Sensitivity 3.6 pg/ml (0-14)
[2025-01-15 09:38] LABS: INR 1.2 (0.9-1.1); Prothrombin Time 12.5 Seconds (9.0-12.0)
[2025-01-15 09:41] LABS: Base Excess VBG -3.1 mEq/L; HCO3 VBG 24 mmol/L; Oxygen Saturation VBG 64.2 %; PCO2 VBG 50 mmHg (38-50); PO2 VBG 38 mmHg; pH VBG 7.29 (7.36-7.41)
[2025-01-15 10:23] LABS: Appearance Urine Clear (Clear); Bilirubin Urine Negative (Negative); Blood Urine Negative (Negative); Color Urine Yellow; Glucose Urine UA 3+ (Negative); Ketones Urine Negative (Negative); Leukocyte Esterase Urine Negative (Negative); Nitrite Urine Negative (Negative); Protein Urine Negative (Negative); Specific Gravity Urine 1.017 (1.000-1.030); Urobilinogen Urine Negative (Negative); pH Urine 5.5 (4.5-7.5)
[2025-01-15 10:24] LABS: Adenovirus PCR Not Detected (NotDetected); Bordetella parapertussis PCR Not Detected (NotDetected); Bordetella pertussis PCR Not Detected (NotDetected); Chlamydia pneumoniae PCR Not Detected (NotDetected); Coronavirus 229E PCR Not Detected (NotDetected); Coronavirus CoV-2 (COVID19)PCR Not Detected (NotDetected); Coronavirus HKU1 PCR Not Detected (NotDetected); Coronavirus NL63 PCR Not Detected (NotDetected); Coronavirus OC43PCR Not Detected (NotDetected); Human Metapneumovirus PCR Not Detected (NotDetected); Influenza A PCR Not Detected (NotDetected); Influenza B PCR Not Detected (NotDetected); Mycoplasma pneumoniae PCR Not Detected (NotDetected); Parainfluenza Virus 1 PCR Not Detected (NotDetected); Parainfluenza Virus 2 PCR Not Detected (NotDetected); Parainfluenza Virus 3 PCR Not Detected (NotDetected); Parainfluenza Virus 4 PCR Not Detected (NotDetected); Respiratory Syncytial VirusPCR Not Detected (NotDetected); Rhinovirus/Enterovirus PCR Not Detected (NotDetected)
[2025-01-15 11:51] LABS: BUN Creatinine Ratio 33.3 (10-20); Calcium 8.9 mg/dl (8.6-10.3); Creatinine Clr Calc Pharmacy 73.2 ml/min; Potassium 4.3 mmol/L (3.5-5.1); Troponin I High Sensitivity 4.7 pg/ml (0-14)
[2025-01-15] MEDS ORDERED: ATROPINE SO4 1 MG/ML 1ML VIAL IV PRN (11:56)
[2025-01-15 12:04] LABS: Thyroid Stimulating Hormone 6.627 uIu/ml (0.300-4.500)
[2025-01-15] MEDS: SODIUM CHLORIDE 0.9% 1,000 ML IV SCH (12:14)
--- NOTE | 2025-01-15 12:25 | History & Physical Report ---
Date of Service January 15, 2025 Assessment & Plan (1) Symptomatic bradycardia: Plan: Assessment: 1 symptomatic bradycardia. Heart rate 40. Required atropine administration by EMS. Heart rates been relatively stable here. During the time of this dictation she is dropped to 52 we will monitor carefully if she drops in the 40s we will rebolus her with atropine. Cardiology has been consulted we are awaiting a callback to discuss this complex cardiac history with cardiology on- call. The patient did take her oral metoprolol this morning and this will be discontinued at this time. Stat TSH was ordered upon accepting the patient for admission it is 6.6. Free T4 is pending. But I do not suspect that any thyroid dysfunction is contributing to this degree of bradycardia. Patient may indeed be developing sick sinus syndrome and may be in need of a pacemaker eventually. This of course will be per the discretion of cardiology as the patient declares herself. 2. History of non-ST elevation myocardial infarction November/December 2024. Will need an ischemic workup eventually as an outpatient. Was not done as an inpatient due to her acute intracranial bleed. 3. Recent history-November 2024 of subarachnoid and intracranial bleed. Stable on CAT scan today. Following with neurosurgery as an outpatient. Seizure prophylaxis medications has been discontinued approximately week to 10 days ago. 4. Acute bilateral pulmonary emboli diagnosed approximately 6 to 8 weeks ago. Currently on Xarelto. We will continue that at this time. 5. Bilateral pleural effusions much improved from 6 to 8 weeks ago. She did have a therapeutic thoracentesis at the tertiary care center on the right side draining 1.6 L of fluid. She is at 100% on room air. I see no reason to intervene on this at this time. 6. Acute on chronic hyponatremia which at this point represents hypovolemic hyponatremia. We will gently hydrate with normal saline. Monitor electrolytes every 4 hours. Sodium level today is 118. In November 2023 was 127. Discontinue her spironolactone at this time given her hypovolemia and hyponatremia. 7. History of moderate pericardial effusion during her last hospitalization repeat echocardiogram has been ordered. There is no clinical or electrical evidence of tamponade- pulses paradoxus electrical alternans excetra. 8. Possible left lower lobe infiltrate by chest x-ray today. I do not favor infection I favor atelectasis given her pleural effusion given her reassuring white blood cell count and reassuring procalcitonin level we will monitor. She is at 100% on room air. 9. Debility. PT and OT will be consulted. Falls precautions 10. Sacral decubiti. Stage I. Wound care consulted. No evidence of active infection. 11. Cardiomyopathy. EF 35% November 2024. Repeat echo prior to that hospitalization discharge in December 2024 EF was 40 to 45%. She is on Jardiance, DENNY inhibitor-both of which will be continued at this time. However her spironolactone will be discontinued given the electrolyte abnormalities and the dehydration. 12. GERD. Continue home H2 edis. Plan: As discussed above. Please refer to orders for further planning. Again extended conversation of approximately 24 minutes by conference telephone with the patient's son and daughter took place with me personally today. Again all their questions were answered to their satisfaction. And again we will review the case with cardiology upon receiving a call back. History of Present Illness Chief Complaint: Weakness, fatigue. Primary Care Provider: Mary Lizarraga PA-C This is a pleasant 79-year-old female whose had a very eventful 6 to 8 weeks. Earlier this year in 2024 she suffered a subarachnoid and subdural hemorrhage. She was taken to [facility]. Neurosurgery was consulted. There was no surgical intervention. During the same hospitalization she was diagnosed most with acute left-sided pulmonary emboli. When cleared by neurosurgery she was commenced and eventually discharged on subcutaneous Lovenox and since discharge has been converted to oral Xarelto. Over the last 24 to 48 hours she has been feeling weaker than her normal self. EMS was called for her today. Upon presentation EMS found the patient to be bradycardic with a heart rate of 40 at which time a dose of atropine was administered. The patient did respond appropriately with a heart rate of 94 post atropine. She was brought to the ER for further evaluation and treatment. While in the ER heart rates ranged from 61-88. Her troponins are negative now x 2. Her EKG was reassuring. During her hospitalization in NovemberDecember 2024 she was also diagnosed with a stress cardiomyopathy with an EF initially of 35% prior to discharge from that hospitalization it was rebounding to 40 to 45%. In addition the patient had troponins of approximately 2000 at that time. There was no ischemic workup done given her acute intracranial bleed. In addition there was a moderate pericardial effusion found by echocardiogram both initially and repeat prior to discharge with no evidence of cardiac tamponade at that time. In the emergency department here she had a CT of the brain which did demonstrate her intracranial bleed which appears to be stable. She also had a chest x-ray which showed bilateral pleural effusions which are smaller than they were while hospitalized. She did have a thoracentesis draining 1.6 L of fluid off the right lung at that time. There was question of a possible left lower lobe infiltrate versus atelectasis on the plain film chest x-ray today however the patient's white count is normal she has no respiratory symptoms her respiratory bio fire panel is negative and her procalcitonin is negative I do not favor bacterial pneumonia in this case I favor atelectasis. We are called admit the patient for further evaluation and treatment as her laboratory studies reflected a hyponatremia with a sodium level of 118. In the ER she received 500 cc of normal saline. She appears to be running hyponatremic November 2024 her sodium level was 127 but this appears to be an acute on chronic hyponatremia which appears to be hypovolemic hyponatremia given her dehydration clinically as described below in my exam. We have made contact with the patient's son Med and the patient's daughter Mely who is a primary care family physician, ER provider in the [place]. We had a conference call with both Med and Mely today. We reviewed all of the above including her past medical history with the patient's son and daughter. All their questions were answered to their satisfaction and they were appreciative of our call. We discussed all the findings above and all the findings discussed in my exam below and in my assessment and plan. In addition the family has confirmed the patient's CODE STATUS is a DNR/DNI. Family also reports the patient was initially on antiseizure medication however this was discontinued approximately a week to 10 days ago by neurosurgery. This was for prophylaxis given her intracranial bleed. She never had a witnessed or reported seizure. Past medical/surgical history: History of subarachnoid hemorrhage and subdural hematoma November 2024. Following with neurosurgery, history of pulmonary embolism December 2024. Currently on Xarelto. Stress cardiomyopathy/Takotsubo's cardiomyopathy NovemberDecember 2024 with an EF of 35 with repeat echo approximately week to 10 days later at 40 to 45%. History of non-ST elevation myocardial infarction with a troponin approximately 1999December 2024. She has not had an ischemic workup to this point and is in need of one as an outpatient in a well state. History of moderate pericardial effusion. History of bilateral pleural effusions during her last admission. Social history: There is no use of alcohol or tobacco. She lives at a independent living environment with her however her is currently hospitalized here at [facility] himself. 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 Family medical history: Obtained and noncontributory. CODE STATUS: As discussed above DO NOT RESUSCITATE discussed with patient and family including son and daughter. Allergies Allergy/AdvReac Type Severity Reaction Status Date / Time mold Allergy Intermediate SHORTNESS Verified 11/13/18 13:41 OF BREATH shellfish derived Allergy Unknown Indigestion Verified 11/13/18 13:41 Penicillins AdvReac Unknown GI UPSET Verified 11/13/18 13:41 Home Medications Medication Instructions Recorded Confirmed Type Vitamin C 1 tab PO DAILY ##0 08/25/14 01/15/25 History calcium 600 mg (as 1 tab PO DAILY ##0 08/25/14 01/15/25 History carbonate)-vitamin D3 5 mcg (200 unit) tablet acetaminophen 500 mg tablet 1,000 mg PO Q8H 01/15/25 01/15/25 History brivaracetam 50 mg tablet 50 mg PO Q12H 01/15/25 01/15/25 History (Briviact) diclofenac sodium 1 % topical gel 1 ea topical QID PRN Pain 01/15/25 01/15/25 History empagliflozin 10 mg tablet 10 mg PO DAILY 01/15/25 01/15/25 History (Jardiance) enoxaparin 30 mg/0.3 mL 30 mg subcut UD 01/15/25 01/15/25 History subcutaneous syringe famotidine 20 mg tablet 20 mg PO UD 01/15/25 01/15/25 History lidocaine 4 % topical patch 1 patch topical DAILY 01/15/25 01/15/25 History lisinopril 5 mg tablet 5 mg PO DAILY 01/15/25 01/15/25 History metoprolol succinate 50 mg 50 mg PO DAILY 01/15/25 01/15/25 History tablet,extended release 24 hr ondansetron 4 mg disintegrating 4 mg PO TID PRN n/v 01/15/25 01/15/25 History tablet paroxetine HCl 10 mg tablet 10 mg PO DAILY 01/15/25 01/15/25 History polyethylene glycol 3350 17 17 g PO BID 01/15/25 01/15/25 History gram/dose oral powder (Miralax) rivaroxaban 20 mg tablet (Xarelto) 20 mg PO DAILY 01/15/25 01/15/25 History simethicone 80 mg chewable tablet 80 mg PO BID 01/15/25 01/15/25 History spironolactone 25 mg tablet 12.5 mg PO DAILY 01/15/25 01/15/25 History Past Med/Surg History Problem List (Updated 01/15/25 @ 12:19 by Adriel Mcintyre, PhD, DO) Symptomatic bradycardia Breast cancer of lower-outer quadrant of right female breast ( ~2014) Medical History Breast cancer (08/18/14) Social History Smoking Status: Former smoker Preferred Language: Honduran Beliefs That Will Affect Care: None Feels Safe at Home: Yes Review of Systems Review of Systems: A 10 point review of system was obtained and unless otherwise stated here or in history of present illness are negative and noncontributory to chief complaint. Physical Exam Physical Exam: In General: In general this is a pleasant 79-year-old female who is alert and oriented x 3 at the time of my exam. She tells me it is January. She tells me she is in [facility]. She appears cachectic on examination with protein calorie malnutrition. HEENT: Normocephalic atraumatic pupils are equal round and reactive to light bilaterally. No scleral icterus no conjunctival injection external auditory canals are patent septum is in the midline nose is without discharge oral mucosa is pink and and extraordinarily dry without lesion. NECK: Supple no rigidity no lymphadenopathy no thyromegaly no carotid bruits no JVD no masses. HEART: Regular rate and rhythm I do not appreciate any ectopy or rub. No murmur. LUNGS: Diminished in the bases but otherwise clear to auscultation bilaterally and anteriorly with no evidence of adventitious sounds/wheezes rales or rhonchi. ABDOMEN: Soft nontender, no rebound, no peritoneal signs, positive bowel sounds, no appreciable organomegaly. EXTREMITIES: Intact, no peripheral cyanosis, clubbing. There is dependent peripheral edema which is pitting approximately 2+ on the right and 1+ on the left. Strength decreased globally but equal bilaterally. She has debility. Typically ambulates with a walker. Right hand was noted to be cyanotic when I entered the room. She had an IV Hep-Lock in the dorsum of that hand/wrist region with Denny wraps proximal and distal to the insertion site. These were immediately removed and the patient's hand was reperfused to being pink with good radial pulses. She did state that her right hand felt tingly and cold initially on presentation to the room. NEUROLOGICAL: Generalized weakness but cranial nerves II through XII are grossly intact with no focal deficit elicited upon examination. Skin: The patient has a sacral decubiti. It is only stage I. No active infection. Were accompanied by female nursing staff at the time of our evaluation. Results & Data Results & Data Vital Signs (Past 12 Hours) Vital Signs Temp Pulse Pulse Resp BP BP Pulse Ox 01/15/25 11:45 55 L 18 132/80 100 01/15/25 11:30 64 24 135/80 92 01/15/25 11:15 61 16 147/87 H 100 01/15/25 11:03 63 18 131/86 100 01/15/25 10:11 67 19 137/90 99 01/15/25 09:20 75 18 129/89 95 01/15/25 09:20 95 01/15/25 08:42 88 01/15/25 08:41 36.9 C 86 19 151/97 H 94 O2 Del Method 01/15/25 11:45 Room Air 01/15/25 11:30 Room Air 01/15/25 11:15 Room Air 01/15/25 11:03 Room Air 01/15/25 10:11 Room Air 01/15/25 09:20 Room Air 01/15/25 09:20 Room Air 01/15/25 08:42 01/15/25 08:41 Room Air Code Status & VTE Plan Code Status DNR/DNI. Discussed with patient and family members as discussed above. PG Care Time/CCT Total # of Minutes Spent Total Time Spent with Patient: Total time spent is greater than 50% in coordination of care (as documented) at patient's floor/unit and/or counseling patient: Coding Level of Care Code 02002 INT INP/OBS CARE MIN Diagnoses Symptomatic bradycardia R00.1
[2025-01-15 12:40] LABS: T4 Free Thyroxine 0.81 ng/dl (0.61-1.60)
[2025-01-15 15:22] LABS: BUN Creatinine Ratio 34.6 (10-20); Calcium 8.7 mg/dl (8.6-10.3); Creatinine Clr Calc Pharmacy 80.2 ml/min; Potassium 4.2 mmol/L (3.5-5.1)
[2025-01-15] MEDS ORDERED: ACETAMINOPHEN 325 MG TAB PO PRN (16:53)
--- NOTE | 2025-01-15 18:01 | Critical Care Consultation ---
Date of Consultation January 15, 2025 Assessment & Plan (1) Acute hyponatremia: Patient with an element of hypovolemic hyponatremia and possibly component of SIADH. Continue to trend BMPs every 4 hours. Continue sodium chloride infusion. Sodium correction of 6 to 8 mEq in 24 hours. (2) Symptomatic bradycardia: Patient relatively asymptomatic at this present time and heart rates are improving. Etiology unclear, but possibly related to sick sinus syndrome. Patient currently accepted for transfer to [facility] cardiovascular ICU due to lack of material control specialist over the weekend at our facility. Will consider the use of dopamine/dobutamine depending on clinical picture if bradycardia is associated with hypotension. Hold beta-edis. (3) Recurrent right pleural effusion: Recurrent pleural effusion suspected due to systolic CHF. Previously was sampled at [facility]. Do not have the cytology results available. She does have a history of breast cancer which is certainly of concern. She is asymptomatic and saturating well on room air. Will defer thoracentesis for the time being. (4) Systolic CHF: Continue home medications per cardiology recommendation. Plan ICU services will continue to monitor the patient. Thank you for the consult. Please call with questions. History of Present Illness Reason for Consultation: Bradycardia Attending Physician: Adriel Mcintyre, PhD, DO History of Present Illness 79-year-old female with a history of recent subarachnoid hemorrhage, subdural hemorrhage and left-sided pulmonary emboli, invasive ductal carcinoma of the right breast diagnosed in 2013 status post partial mastectomy, radiation therapy and lymph node dissection and stress-induced cardiomyopathy who presented to the hospital due to ongoing weakness and shortness of breath. She was found to be bradycardic by EMS and atropine was administered with an increase in her heart rate to 90s. She was evaluated in the ER who consulted cardiology and recommended ICU admission for monitoring and ultimately transferred to [facility] for further intervention. She is awaiting bed placement. She was accepted into the [facility] cardiovascular ICU. Patient endorses some mild shortness of breath currently. She denies any chest pain, headaches, dizziness, nausea or vomiting. Her daughter is at bedside. Patient currently receiving sodium chloride infusion at 100 mL/h. He is also on Xarelto 20 mg daily, Jardiance 10 mg daily, Paxil 10 mg daily and lisinopril 5 mg daily. Hemodynamics are currently stable with a heart rate of 58 and a systolic blood pressure of 143. She is saturating well on room air. Chest x-ray on admission revealed a chronic right pleural effusion and progressive right basilar atelectasis. New infiltrate to the left lung base was noted. CT head revealed expected evolution of the left parietal intraparenchymal hematoma shown on November 27, 2024. She is a former smoker and recently quit in November. She is unaware of any prior lung disease. Allergies Allergy/AdvReac Type Severity Reaction Status Date / Time mold Allergy Intermediate SHORTNESS Verified 11/13/18 13:41 OF BREATH shellfish derived Allergy Unknown Indigestion Verified 11/13/18 13:41 Penicillins AdvReac Unknown GI UPSET Verified 11/13/18 13:41 Home Medications Medication Instructions Recorded Confirmed Type Vitamin C 1 tab PO DAILY ##0 08/25/14 01/15/25 History calcium 600 mg (as 1 tab PO DAILY ##0 08/25/14 01/15/25 History carbonate)-vitamin D3 5 mcg (200 unit) tablet acetaminophen 500 mg tablet 1,000 mg PO Q8H 01/15/25 01/15/25 History brivaracetam 50 mg tablet 50 mg PO Q12H 01/15/25 01/15/25 History (Briviact) diclofenac sodium 1 % topical gel 1 ea topical QID PRN Pain 01/15/25 01/15/25 History empagliflozin 10 mg tablet 10 mg PO DAILY 01/15/25 01/15/25 History (Jardiance) enoxaparin 30 mg/0.3 mL 30 mg subcut UD 01/15/25 01/15/25 History subcutaneous syringe famotidine 20 mg tablet 20 mg PO UD 01/15/25 01/15/25 History lidocaine 4 % topical patch 1 patch topical DAILY 01/15/25 01/15/25 History lisinopril 5 mg tablet 5 mg PO DAILY 01/15/25 01/15/25 History metoprolol succinate 50 mg 50 mg PO DAILY 01/15/25 01/15/25 History tablet,extended release 24 hr ondansetron 4 mg disintegrating 4 mg PO TID PRN n/v 01/15/25 01/15/25 History tablet paroxetine HCl 10 mg tablet 10 mg PO DAILY 01/15/25 01/15/25 History polyethylene glycol 3350 17 17 g PO BID 01/15/25 01/15/25 History gram/dose oral powder (Miralax) rivaroxaban 20 mg tablet (Xarelto) 20 mg PO DAILY 01/15/25 01/15/25 History simethicone 80 mg chewable tablet 80 mg PO BID 01/15/25 01/15/25 History spironolactone 25 mg tablet 12.5 mg PO DAILY 01/15/25 01/15/25 History Patient History Medical History Breast cancer (08/18/14) Social History Smoking Status: Former smoker Hx Alcohol Use: No Hx Substance Use: No Preferred Language: Greek Special Education Secretary Required: No Beliefs That Will Affect Care: None Current Living Situation Comment: independent living Other Information That Helps Us Care for You: No Feels Safe at Home: Yes Safety Concerns: Feels Safe At This Time Assistive Devices: Denture - Upper and Denture - Lower Review of Systems Review of Systems: All systems reviewed & are unremarkable except as noted in HPI & below Physical Exam Physical Exam: Constitutional: Elderly, frail and cachectic appearing female no apparent distress. Eyes: Pupils are equal round and reactive to light. Conjunctivae are normal. Anicteric sclera. Ears nose, mouth and throat: Mallampati class 1. Normal posterior oropharynx. Uvula is midline. Neck: Trachea is midline. Visual inspection is normal. Respiratory: Mild diminishment at the bases. No wheezes or increased work of breathing. Cardiovascular: Regular rate and rhythm. No murmurs. No edema. Gastrointestinal: Normal bowel sounds, soft, nontender and nondistended. No hepatosplenomegaly noted. Musculoskeletal: No cyanosis. Patient is able to move all extremities. Strength is 5 out of 5 in the upper and lower extremities. Skin: No rashes, warm dry and intact. Neurologic: No obvious focal neurological deficits seen. Psychiatric: Alert and oriented x3 with a euthymic affect. Results & Data Results & Data Vital Signs (Past 12 Hours) Vital Signs Temp Pulse Pulse Resp BP BP Pulse Ox 01/15/25 16:46 55 L 16 134/91 98 01/15/25 15:30 51 L 19 128/73 100 01/15/25 15:15 52 L 18 130/64 92 01/15/25 15:00 49 L 15 147/75 H 98 01/15/25 14:45 49 L 14 140/75 97 01/15/25 14:30 48 L 13 151/75 H 100 01/15/25 14:15 48 L 18 144/81 H 99 01/15/25 14:00 48 L 15 154/82 H 100 01/15/25 13:45 45 L 12 119/70 99 01/15/25 13:30 47 L 15 126/74 100 01/15/25 13:15 48 L 17 141/74 H 100 01/15/25 13:00 55 L 21 136/96 99 01/15/25 12:45 50 L 20 134/76 100 01/15/25 12:37 52 L 01/15/25 12:30 51 L 17 122/84 99 01/15/25 12:15 52 L 15 124/81 100 01/15/25 12:00 52 L 22 130/80 100 01/15/25 11:45 55 L 18 132/80 100 01/15/25 11:30 64 24 135/80 92 01/15/25 11:15 61 16 147/87 H 100 01/15/25 11:03 63 18 131/86 100 01/15/25 10:11 67 19 137/90 99 01/15/25 09:20 75 18 129/89 95 01/15/25 09:20 95 01/15/25 08:42 88 01/15/25 08:41 36.9 C 86 19 151/97 H 94 O2 Del Method 01/15/25 16:46 Room Air 01/15/25 15:30 Room Air 01/15/25 15:15 Room Air 01/15/25 15:00 Room Air 01/15/25 14:45 Room Air 01/15/25 14:30 Room Air 01/15/25 14:15 Room Air 01/15/25 14:00 Room Air 01/15/25 13:45 Room Air 01/15/25 13:30 Room Air 01/15/25 13:15 Room Air 01/15/25 13:00 Room Air 01/15/25 12:45 Room Air 01/15/25 12:37 01/15/25 12:30 Room Air 01/15/25 12:15 Room Air 01/15/25 12:00 Room Air 01/15/25 11:45 Room Air 01/15/25 11:30 Room Air 01/15/25 11:15 Room Air 01/15/25 11:03 Room Air 01/15/25 10:11 Room Air 01/15/25 09:20 Room Air 01/15/25 09:20 Room Air 01/15/25 08:42 01/15/25 08:41 Room Air Coding Level of Care Code 80643 INT INP/OBS CARE MIN Diagnoses Acute hyponatremia E87.1 Symptomatic bradycardia R00.1 Recurrent right pleural effusion J90 Systolic CHF I50.20
--- NOTE | 2025-01-15 18:23 | Cardiology Consultation ---
Date of Consultation January 15, 2025 Assessment & Plan (1) Symptomatic bradycardia: HOLD BB; her ECHO shows normal to hyperdynamic LV function with diastolic dysfunction. Given the recent stress cardiomyopathy with prior LV dysfunction only with the NSTEMI, she would benefit from PPM to allow medical therapy. Will use Dobutamine or dopamine to increase HR if she becomes symptomatic. Awaiting for [facility] for transfer. We do not have EP available over the weekend in the event PPM is necessary. (2) Pericardial effusion: does not appear to be significant, but question if related to her hx metastatic breast CA. (3) Recurrent right pleural effusion: Consideration should be given to tapping this for symptomatic relief. (4) Acute hyponatremia: diuretics on hold getting gentle IV fluids (5) Stress-induced cardiomyopathy: appears to have resolved on ECHO (6) Subsequent non-ST elevation (NSTEMI) myocardial infarction: from 11/27/24. No evidence for ongoing ACS at this time (7) Breast cancer metastasized to bone: consider mets to pericardium and right lung. History of Present Illness Reason for Consultation: symptomatic bradycardia Attending Physician: Adriel Mcintyre, PhD, DO History of Present Illness 79-year-old female with a history of recent subarachnoid hemorrhage, subdural hemorrhage and left-sided pulmonary emboli in Nov 2024, invasive ductal carcinoma of the right breast diagnosed in 2013 status post partial mastectomy, radiation therapy and lymph node dissection, with known metastasis and recent NSTEMI with presumed stress-induced cardiomyopathy Nov 2024 who was subsequently transferred to [facility] for an extended evaluation. She was dc to [facility] for several weeks and then was in a supervised facility after that. She has been home only a short time. She has not been feeling well but has difficulty verbalizing her complaints. She just doesn't feel good-was very week and tired as well as SOB. Family called 911 and She was found to be bradycardic HR junctional rhythm in 40s by EMS and atropine was administered with an increase in her heart rate to 90s. She was evaluated in the ER who consulted cardiology and recommended ICU admission for monitoring and ultimately transferred to [facility] for further intervention. She took her normal dose of metoprolol XL earlier today. Later this afternoon, her HR drops in to the low 50s, but BP remains stable. She was accepted into the [facility] cardiovascular ICU for further eval and EP services pacemaker if necessary. Patient endorses some mild shortness of breath currently. She denies any chest pain, headaches, dizziness, nausea or vomiting. Her daughter in law is at bedside. ECHO just completed shows small LV, EF 65%, diastolic dysfunction, no wall motion abnormalities, RV dilated along with RV apex and prominent apical trabeculations, PA pressure 40mmHg. Smal circumferential pericardial effusion, with echogenic fibrinous material on the surface of the RV free wall, large left pleural effusion. Allergies Allergy/AdvReac Type Severity Reaction Status Date / Time mold Allergy Intermediate SHORTNESS Verified 11/13/18 13:41 OF BREATH shellfish derived Allergy Unknown Indigestion Verified 11/13/18 13:41 Penicillins AdvReac Unknown GI UPSET Verified 11/13/18 13:41 Home Medications Medication Instructions Recorded Confirmed Type Vitamin C 1 tab PO DAILY ##0 08/25/14 01/15/25 History calcium 600 mg (as 1 tab PO DAILY ##0 08/25/14 01/15/25 History carbonate)-vitamin D3 5 mcg (200 unit) tablet acetaminophen 500 mg tablet 1,000 mg PO Q8H 01/15/25 01/15/25 History brivaracetam 50 mg tablet 50 mg PO Q12H 01/15/25 01/15/25 History (Briviact) diclofenac sodium 1 % topical gel 1 ea topical QID PRN Pain 01/15/25 01/15/25 History empagliflozin 10 mg tablet 10 mg PO DAILY 01/15/25 01/15/25 History (Jardiance) enoxaparin 30 mg/0.3 mL 30 mg subcut UD 01/15/25 01/15/25 History subcutaneous syringe famotidine 20 mg tablet 20 mg PO UD 01/15/25 01/15/25 History lidocaine 4 % topical patch 1 patch topical DAILY 01/15/25 01/15/25 History lisinopril 5 mg tablet 5 mg PO DAILY 01/15/25 01/15/25 History metoprolol succinate 50 mg 50 mg PO DAILY 01/15/25 01/15/25 History tablet,extended release 24 hr ondansetron 4 mg disintegrating 4 mg PO TID PRN n/v 01/15/25 01/15/25 History tablet paroxetine HCl 10 mg tablet 10 mg PO DAILY 01/15/25 01/15/25 History polyethylene glycol 3350 17 17 g PO BID 01/15/25 01/15/25 History gram/dose oral powder (Miralax) rivaroxaban 20 mg tablet (Xarelto) 20 mg PO DAILY 01/15/25 01/15/25 History simethicone 80 mg chewable tablet 80 mg PO BID 01/15/25 01/15/25 History spironolactone 25 mg tablet 12.5 mg PO DAILY 01/15/25 01/15/25 History Patient History Medical History (Updated 01/15/25 @ 18:50 by Aranza Day DO) Stress-induced cardiomyopathy Breast cancer (08/18/14) Social History Smoking Status: Former smoker Hx Alcohol Use: No Hx Substance Use: No Preferred Language: Bulgarian [employer] Super[employer] Required: No Beliefs That Will Affect Care: None Current Living Situation Comment: independent living Other Information That Helps Us Care for You: No Feels Safe at Home: Yes Safety Concerns: Feels Safe At This Time Assistive Devices: Denture - Upper and Denture - Lower Review of Systems Review of Systems: All systems reviewed & are unremarkable except as noted in HPI & below Physical Exam Physical Exam: cachectic, in NAD, appears tired, some confusion with dates of events Respiratory: marked decrease on right-no BS at base about 1/2 way up Lung decreased BS at base Cardiovascular: heart jelani no murmurs appreciated +1 edema L>R Results & Data Vital Signs (Past 12 Hours) Vital Signs Temp Pulse Pulse Resp BP BP Pulse Ox 01/15/25 18:05 01/15/25 18:03 01/15/25 18:02 57 L 01/15/25 18:01 35.7 C L 58 L 20 143/80 H 96 01/15/25 16:46 55 L 16 134/91 98 01/15/25 15:30 51 L 19 128/73 100 01/15/25 15:15 52 L 18 130/64 92 01/15/25 15:00 49 L 15 147/75 H 98 01/15/25 14:45 49 L 14 140/75 97 01/15/25 14:30 48 L 13 151/75 H 100 01/15/25 14:15 48 L 18 144/81 H 99 01/15/25 14:00 48 L 15 154/82 H 100 01/15/25 13:45 45 L 12 119/70 99 01/15/25 13:30 47 L 15 126/74 100 01/15/25 13:15 48 L 17 141/74 H 100 01/15/25 13:00 55 L 21 136/96 99 01/15/25 12:45 50 L 20 134/76 100 01/15/25 12:37 52 L 01/15/25 12:30 51 L 17 122/84 99 01/15/25 12:15 52 L 15 124/81 100 01/15/25 12:00 52 L 22 130/80 100 01/15/25 11:45 55 L 18 132/80 100 01/15/25 11:30 64 24 135/80 92 01/15/25 11:15 61 16 147/87 H 100 01/15/25 11:03 63 18 131/86 100 01/15/25 10:11 67 19 137/90 99 01/15/25 09:20 75 18 129/89 95 01/15/25 09:20 95 01/15/25 08:42 88 01/15/25 08:41 36.9 C 86 19 151/97 H 94 Pulse Ox O2 Del Method O2 Del Method 01/15/25 18:05 95 Room Air 01/15/25 18:03 Room Air 01/15/25 18:02 01/15/25 18:01 Room Air 01/15/25 16:46 Room Air 01/15/25 15:30 Room Air 01/15/25 15:15 Room Air 01/15/25 15:00 Room Air 01/15/25 14:45 Room Air 01/15/25 14:30 Room Air 01/15/25 14:15 Room Air 01/15/25 14:00 Room Air 01/15/25 13:45 Room Air 01/15/25 13:30 Room Air 01/15/25 13:15 Room Air 01/15/25 13:00 Room Air 01/15/25 12:45 Room Air 01/15/25 12:37 01/15/25 12:30 Room Air 01/15/25 12:15 Room Air 01/15/25 12:00 Room Air 01/15/25 11:45 Room Air 01/15/25 11:30 Room Air 01/15/25 11:15 Room Air 01/15/25 11:03 Room Air 01/15/25 10:11 Room Air 01/15/25 09:20 Room Air 01/15/25 09:20 Room Air 01/15/25 08:42 01/15/25 08:41 Room Air Laboratory Results Abnormal lab results 01/15/25 01/15/25 01/15/25 Range/Units 08:40 08:50 09:11 MPV 9.0 L (9.4-12.4) fL Lymph # (Auto) 0.41 L (1.20-3.40) K/uL PT 12.5 H (9.0-12.0) Seconds INR 1.2 H (0.9-1.1) VBG pH 7.29 L (7.36-7.41) Sodium 118 L* (136-145) mmol/L Chloride 87 L (98-107) mmol/L Creatinine 0.53 L (0.6-1.2) mg/dl BUN/Creatinine Ratio 39.6 H (10-20) Glucose 178 H (70-99(Fasting)) mg/dl POC Glucose 48 L* (70-99) mg/dl Osmolality 259 L (280-300) mOsm/kg Total Protein 5.2 L (6.0-8.3) gm/dl Albumin 3.1 L (3.4-5.0) gm/dl TSH (0.300-4.500) uIu/ml Urine Glucose (UA) (Negative) Urine Osmolality (500-800) mOsm/kg 01/15/25 01/15/25 01/15/25 Range/Units 09:17 10:00 11:09 MPV (9.4-12.4) fL Lymph # (Auto) (1.20-3.40) K/uL PT (9.0-12.0) Seconds INR (0.9-1.1) VBG pH (7.36-7.41) Sodium 119 L* (136-145) mmol/L Chloride 89 L (98-107) mmol/L Creatinine 0.57 L (0.6-1.2) mg/dl BUN/Creatinine Ratio 33.3 H (10-20) Glucose 103 H (70-99(Fasting)) mg/dl POC Glucose 115 H (70-99) mg/dl Osmolality (280-300) mOsm/kg Total Protein (6.0-8.3) gm/dl Albumin (3.4-5.0) gm/dl TSH 6.627 H (0.300-4.500) uIu/ml Urine Glucose (UA) 3+ H (Negative) Urine Osmolality 444 L (500-800) mOsm/kg 01/15/25 01/15/25 Range/Units 14:34 18:25 MPV (9.4-12.4) fL Lymph # (Auto) (1.20-3.40) K/uL PT (9.0-12.0) Seconds INR (0.9-1.1) VBG pH (7.36-7.41) Sodium 119 L* (136-145) mmol/L Chloride 90 L (98-107) mmol/L Creatinine 0.52 L (0.6-1.2) mg/dl BUN/Creatinine Ratio 34.6 H (10-20) Glucose (70-99(Fasting)) mg/dl POC Glucose 61 L* (70-99) mg/dl Osmolality (280-300) mOsm/kg Total Protein (6.0-8.3) gm/dl Albumin (3.4-5.0) gm/dl TSH (0.300-4.500) uIu/ml Urine Glucose (UA) (Negative) Urine Osmolality (500-800) mOsm/kg Diagnostic Findings ECHO Medications Administered Acetaminophen (Acetaminophen 500 Mg Tab) 1,000 mg PO Q8H BETHANY Stop: 02/14/25 16:59 Last Admin: 01/15/25 18:27 Dose: 1,000 mg Documented By: GRISELDA Sodium Chloride (Nss) 1,000 mls @ 100 mls/hr IV .Q10H BETHANY Stop: 01/16/25 08:14 Last Admin: 01/15/25 12:14 Dose: 100 mls/hr Documented By: KARINA Miscellaneous (Icu Protocol For Hyperglycemia) 1 each N/A ACHS BETHANY Stop: 01/17/25 16:52 Last Admin: 01/15/25 18:27 Dose: 1 each Documented By: GRISELDA Current Inpatient Medications Acetaminophen (Acetaminophen 500 Mg Tab) 1,000 mg PO Q8H BETHANY Stop: 02/14/25 16:59 Last Admin: 01/15/25 18:27 Dose: 1,000 mg Acetaminophen (Acetaminophen 325 Mg Tab) 650 mg PO Q4H PRN PRN Reason: Pain or Fever Stop: 02/14/25 16:52 Empagliflozin (Empagliflozin 10 Mg Tab) 10 mg PO DAILY BETHANY Stop: 02/15/25 08:59 Famotidine (Famotidine 20 Mg Tab) 20 mg PO BID BETHANY Stop: 02/14/25 20:59 Sodium Chloride (Nss) 1,000 mls @ 100 mls/hr IV .Q10H BETHANY Stop: 01/16/25 08:14 Last Admin: 01/15/25 12:14 Dose: 100 mls/hr Lisinopril (Lisinopril 5 Mg Tab) 5 mg PO DAILY BETHANY Stop: 02/15/25 08:59 Miscellaneous (Icu Protocol For Hyperglycemia) 1 each N/A ACHS BETHANY Stop: 01/17/25 16:52 Last Admin: 01/15/25 18:27 Dose: 1 each Paroxetine HCl (Paroxetine Hcl 10 Mg Tab) 10 mg PO DAILY BETHANY Stop: 02/15/25 08:59 Polyethylene Glycol (Polyethylene (Miralax) 17 Gm Pack) 17 gm PO BID BETHANY Stop: 02/14/25 20:59 Rivaroxaban (Rivaroxaban 20 Mg Tab) 20 mg PO DAILY BETHANY Stop: 02/15/25 08:59 Simethicone (Simethicone 80 Mg Chew) 80 mg PO BID BETHANY Stop: 02/14/25 20:59 ECG Additional Comments: Sinus jelani low voltage
[2025-01-15] MEDS: ACETAMINOPHEN 500 MG TAB PO SCH (18:27)
[2025-01-15] MEDS: ICU Protocol for HYPERglycemia SCH (18:27)
--- NOTE | 2025-01-15 18:37 | Electrocardiogram Report ---
Test Reason : Blood Pressure : */* mmHG Vent. Rate : 90 BPM Atrial Rate : 90 BPM P-R Int : 144 ms QRS Dur : 80 ms QT Int : 316 ms P-R-T Axes : 74 -14 100 degrees QTcB Int : 386 ms Normal sinus rhythm Low voltage QRS Cannot rule out Anterior infarct (cited on or before 27-Nov-2024) Abnormal ECG When compared with ECG of 27-Nov-2024 11:59, Premature ventricular complexes are no longer Present ID interval has increased Questionable change in QRS axis Nonspecific T wave abnormality, worse in Inferior leads QT has shortened Confirmed by Aranza Day (Piper) on 01/15/2025 6:37:13 PM Referred By: Confirmed By: Aranza Day
[2025-01-15 19:48] LABS: BUN Creatinine Ratio 30.6 (10-20); Calcium 8.8 mg/dl (8.6-10.3); Creatinine Clr Calc Pharmacy 56.8 ml/min; Potassium 4.2 mmol/L (3.5-5.1)
--- NOTE | 2025-01-15 19:55 | Discharge Summary ---
Date of Service January 15, 2025 Admission HPI Per Admitting Provider This is a pleasant 79-year-old female whose had a very eventful 6 to 8 weeks. Earlier this year in 2024 she suffered a subarachnoid and subdural hemorrhage. She was taken to [facility]. Neurosurgery was consulted. There was no surgical intervention. During the same hospitalization she was diagnosed most with acute left-sided pulmonary emboli. When cleared by neurosurgery she was commenced and eventually discharged on subcutaneous Lovenox and since discharge has been converted to oral Xarelto. Over the last 24 to 48 hours she has been feeling weaker than her normal self. EMS was called for her today. Upon presentation EMS found the patient to be bradycardic with a heart rate of 40 at which time a dose of atropine was administered. The patient did respond appropriately with a heart rate of 94 post atropine. She was brought to the ER for further evaluation and treatment. While in the ER heart rates ranged from 61-88. Her troponins are negative now x 2. Her EKG was reassuring. During her hospitalization in NovemberDecember 2024 she was also diagnosed with a stress cardiomyopathy with an EF initially of 35% prior to discharge from that hospitalization it was rebounding to 40 to 45%. In addition the patient had troponins of approximately 2000 at that time. There was no ischemic workup done given her acute intracranial bleed. In addition there was a moderate pericardial effusion found by echocardiogram both initially and repeat prior to discharge with no evidence of cardiac tamponade at that time. In the emergency department here she had a CT of the brain which did demonstrate her intracranial bleed which appears to be stable. She also had a chest x-ray which showed bilateral pleural effusions which are smaller than they were while hospitalized. She did have a thoracentesis draining 1.6 L of fluid off the right lung at that time. There was question of a possible left lower lobe infiltrate versus atelectasis on the plain film chest x-ray today however the patient's white count is normal she has no respiratory symptoms her respiratory bio fire panel is negative and her procalcitonin is negative I do not favor bacterial pneumonia in this case I favor atelectasis. We are called admit the patient for further evaluation and treatment as her laboratory studies reflected a hyponatremia with a sodium level of 118. In the ER she received 500 cc of normal saline. She appears to be running hyponatremic November 2024 her sodium level was 127 but this appears to be an acute on chronic hyponatremia which appears to be hypovolemic hyponatremia given her dehydration clinically as described below in my exam. We have made contact with the patient's son Med and the patient's daughter Mely who is a primary care family physician, ER provider in the [place]. We had a conference call with both Med and Mely today. We reviewed all of the above including her past medical history with the patient's son and daughter. All their questions were answered to their satisfaction and they were appreciative of our call. We discussed all the findings above and all the findings discussed in my exam below and in my assessment and plan. In addition the family has confirmed the patient's CODE STATUS is a DNR/DNI. Family also reports the patient was initially on antiseizure medication however this was discontinued approximately a week to 10 days ago by neurosurgery. This was for prophylaxis given her intracranial bleed. She never had a witnessed or reported seizure. Past medical/surgical history: History of subarachnoid hemorrhage and subdural hematoma November 2024. Following with neurosurgery, history of pulmonary embolism December 2024. Currently on Xarelto. Stress cardiomyopathy/Takotsubo's cardiomyopathy NovemberDecember 2024 with an EF of 35 with repeat echo approximately week to 10 days later at 40 to 45%. History of non-ST elevation myocardial infarction with a troponin approximately 1999December 2024. She has not had an ischemic workup to this point and is in need of one as an outpatient in a well state. History of moderate pericardial effusion. History of bilateral pleural effusions during her last admission. Social history: There is no use of alcohol or tobacco. She lives at a independent living environment with her however her is currently hospitalized here at [facility] himself. 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 Family medical history: Obtained and noncontributory. CODE STATUS: As discussed above DO NOT RESUSCITATE discussed with patient and family including son and daughter. Admission Exam (Per Admitting) Constitutional In General: In general this is a pleasant 79-year-old female who is alert and oriented x 3 at the time of my exam. She tells me it is January. She tells me she is in [facility]. She appears cachectic on examination with protein calorie malnutrition. HEENT: Normocephalic atraumatic pupils are equal round and reactive to light bilaterally. No scleral icterus no conjunctival injection external auditory canals are patent septum is in the midline nose is without discharge oral mucosa is pink and and extraordinarily dry without lesion. NECK: Supple no rigidity no lymphadenopathy no thyromegaly no carotid bruits no JVD no masses. HEART: Regular rate and rhythm I do not appreciate any ectopy or rub. No murmur. LUNGS: Diminished in the bases but otherwise clear to auscultation bilaterally and anteriorly with no evidence of adventitious sounds/wheezes rales or rhonchi. ABDOMEN: Soft nontender, no rebound, no peritoneal signs, positive bowel sounds, no appreciable organomegaly. EXTREMITIES: Intact, no peripheral cyanosis, clubbing. There is dependent peripheral edema which is pitting approximately 2+ on the right and 1+ on the left. Strength decreased globally but equal bilaterally. She has debility. Typically ambulates with a walker. Right hand was noted to be cyanotic when I entered the room. She had an IV Hep-Lock in the dorsum of that hand/wrist region with Denny wraps proximal and distal to the insertion site. These were immediately removed and the patient's hand was reperfused to being pink with good radial pulses. She did state that her right hand felt tingly and cold initially on presentation to the room. NEUROLOGICAL: Generalized weakness but cranial nerves II through XII are grossly intact with no focal deficit elicited upon examination. Skin: The patient has a sacral decubiti. It is only stage I. No active infection. Were accompanied by female nursing staff at the time of our evaluation Unchanged from admission exam as described above on the same date just several hours later. Discharge Data Consultations 01/15/25 10:09 ED Decision to Admit Stat 01/15/25 13:12 Consult Cardiology Routine 01/15/25 14:25 Consult Aircraft Refueler Routine 01/15/25 16:53 Consult Cardiology Routine Consult Aircraft Refueler Routine 01/15/25 19:36 Burn CD for patient Stat Hospital Course (1) Symptomatic bradycardia: Assessment: 1 symptomatic bradycardia. Heart rate 40. Required atropine administration by EMS. Heart rates been relatively stable here. During the time of this dictation she is dropped to 52 we will monitor carefully if she drops in the 40s we will rebolus her with atropine. Cardiology has been consulted we are awaiting a callback to discuss this complex cardiac history with cardiology on- call. The patient did take her oral metoprolol this morning and this will be discontinued at this time. Stat TSH was ordered upon accepting the patient for admission it is 6.6. Free T4 is pending. But I do not suspect that any thyroid dysfunction is contributing to this degree of bradycardia. Patient may indeed be developing sick sinus syndrome and may be in need of a pacemaker eventually. This of course will be per the discretion of cardiology as the patient declares herself. 2. History of non-ST elevation myocardial infarction November/December 2024. Will need an ischemic workup eventually as an outpatient. Was not done as an inpatient due to her acute intracranial bleed. 3. Recent history-November 2024 of subarachnoid and intracranial bleed. Stable on CAT scan today. Following with neurosurgery as an outpatient. Seizure prophylaxis medications has been discontinued approximately week to 10 days ago. 4. Acute bilateral pulmonary emboli diagnosed approximately 6 to 8 weeks ago. Currently on Xarelto. We will continue that at this time. 5. Bilateral pleural effusions much improved from 6 to 8 weeks ago. She did have a therapeutic thoracentesis at the tertiary care center on the right side draining 1.6 L of fluid. She is at 100% on room air. I see no reason to intervene on this at this time. 6. Acute on chronic hyponatremia which at this point represents hypovolemic hyponatremia. We will gently hydrate with normal saline. Monitor electrolytes every 4 hours. Sodium level today is 118. In November 2023 was 127. Discontinue her spironolactone at this time given her hypovolemia and hyponatremia. 7. History of moderate pericardial effusion during her last hospitalization repeat echocardiogram has been ordered. There is no clinical or electrical evidence of tamponade- pulses paradoxus electrical alternans excetra. 8. Possible left lower lobe infiltrate by chest x-ray today. I do not favor infection I favor atelectasis given her pleural effusion given her reassuring white blood cell count and reassuring procalcitonin level we will monitor. She is at 100% on room air. 9. Debility. PT and OT will be consulted. Falls precautions 10. Sacral decubiti. Stage I. Wound care consulted. No evidence of active infection. 11. Cardiomyopathy. EF 35% November 2024. Repeat echo prior to that hospitalization discharge in December 2024 EF was 40 to 45%. She is on Jardiance, DENNY inhibitor-both of which will be continued at this time. However her spironolactone will be discontinued given the electrolyte abnormalities and the dehydration. 12. GERD. Continue home H2 edis. Plan: As discussed above. Please refer to orders for further planning. Again extended conversation of approximately 24 minutes by conference telephone with the patient's son and daughter took place with me personally today. Again all their questions were answered to their satisfaction. And again we will review the case with cardiology upon receiving a call back.
[2025-01-15] MEDS ORDERED: POLYETHYLENE (MIRALAX) 17 GM PACK PO SCH (21:00)
[2025-01-15] MEDS ORDERED: SIMETHICONE 80 MG CHEW PO SCH (21:00)
[2025-01-15] MEDS ORDERED: FAMOTIDINE 20 MG TAB PO SCH (21:00)
--- OUTSIDE RECORDS SUMMARY | 2025-01-15 22:53 | External Medical Summary | Continuity of Care Document ---
Author Name Unknown Organization [place] [address] [address] 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 [phone] Date(s): 01/11/25 - 01/11/25 [place] [address] [address] [facility] Neurosurgery [address] [facility], [facility] [address], [address] [place] [address] [phone] Encounter Diagnosis Brain bleed(Discharge Diagnosis) - 01/11/25 Discharge Disposition: Home or Self Care Attending Physician: MD Ayla, Loco Sanders Encounter Type: [facility] [place] Allergies, Adverse Reactions, Alerts Substance Criticality Severity Reaction Reaction Severity Status penicillins hives Diarrhea Active Allergy Not found in Search fall leaves Active shellfish diarrhea Active Pollen Itching of eye Swelling Active Trees itchy watery ey es, sinus problems more in the fall of the year, leaves Active Immunizations Given and Recorded Vaccine Date Status Refusal Reason SARS-CoV-2 mRNA (Pfizer 12+) bivalent 1 08/07/22 R ecorded SARS-CoV-2 mRNA ([id number]) 2 04/16/22 Recorded SARS-CoV-2 (COVID-19) mRNA BNT-162b2 vax 3 08/17/21 Recorded SARS-CoV-2 (COVID-19) mRNA BNT-162b2 vax 4 03/04/21 Recorded SARS-CoV-2 (COVID-19) mRNA BNT-162b2 vax 5 02/11/21 Recorded influenza virus vaccine, inactivated 07/28/20 Give n influenza virus vaccine, inactivated 09/02/19 Give n influenza virus vaccine, inactivated 08/19/18 Give n influenza virus vaccine, inactivated 08/15/17 Give n influenza virus vaccine, inactivated 08/09/16 Give n influenza virus vaccine, inactivated 07/21/15 Amandeep rded influenza virus vaccine, inactivated 07/21/14 Give n influenza virus vaccine, inactivated 07/20/13 Give n zoster vaccine, inactivated 6 10/05/19 Recorded zoster vaccine, inactivated 7 02/20/19 Recorded zoster vaccine, inactivated 8 11/04/18 Recorded pneumococcal 23-valent vaccine 08/18/15 Given pneumococcal 13-valent vaccine 09/20/14 Given zoster vaccine live 9 08/17/14 Given tetanus/diphtheria/pertuss, acel (Tdap) 10 08/17/14 Given 1Result Comment: 2022-09-13: Historical information-source unspecified 2Result Comment: 2022-09-13: Historical information-source unspecified 3Result Comment: 2021-09-11: Historical information-source unspecified 4Result Comment: 2021-08-07: Historical information-source unspecified 5Result Comment: 2021-08-07: Historical information-source unspecified 6Result Comment: 2021-08-07: Historical information-source unspecified 7Result Comment: Done at the [facility] [place] 8Result Comment: [facility] [place] 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/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 Medications acetaminophen 500 mg oral tablet Start: 12/11/24 7:38:00 AM EST, 2 tab, PO, q8h Start Date: 12/11/24 Status: Ordered Repeat number: 1 Calcium 600+D Start: 11/27/24 3:48:00 PM EST, Daily Start Date: 11/27/24 Status: Ordered Repeat number: 1 diclofenac 1% topical gel Start: 12/11/24 7:40:00 AM EST, 1 appl, topical, qid, PRN: discomfort Start Date: 12/11/24 Status: Ordered Repeat number: 1 Jardiance 10 mg oral tablet Start: 12/11/24 7:56:00 AM EST, 1 tab, PO, Daily Start Date: 12/11/24 Status: Ordered Repeat number: 1 lidocaine 4% patch Start: 12/11/24 7:39:00 AM EST, transdermal, q24h Start Date: 12/11/24 Status: Ordered Repeat number: 1 lisinopril 5 mg oral tablet Start: 12/11/24 7:39:00 AM EST, 1 tab, PO, Daily Start Date: 12/11/24 Status: Ordered Repeat number: 1 metoprolol succinate 50 mg oral tablet, extended release Start: 12/11/24 7:39:00 AM EST, 1 tab, PO, Daily Start Date: 12/11/24 Status: Ordered Repeat number: 1 MiraLax Start: 12/11/24 7:39:00 AM EST, 17 g =, PO, bid Start Date: 12/11/24 Status: Ordered Repeat number: 1 ondansetron 4 mg oral tablet, disintegrating Start: 12/25/24 12:25:00 PM EST, 1 tab, PO, tid, Disp# 30 tab, Refills: 1, PRN: as needed for nausea/vomiting, Pharmacy: [id number] Start Date: 12/25/24 Stop Date: 01/14/25 Status: Ordered Quantity: 30.0 Unit: tab Repeat number: 2 PARoxetine 10 mg oral tablet Start: 12/25/24 12:25:00 PM EST, 1 tab, PO, Daily, Disp# 30 tab, Refills: 5, Pharmacy: [id number] Start Date: 12/25/24 Stop Date: 06/23/25 Status: Ordered Quantity: 30.0 Unit: tab Repeat number: 6 Pepcid 20 mg oral tablet Start: 12/11/24 7:39:00 AM EST, 1 tab, PO, q12h Start Date: 12/11/24 Status: Ordered Repeat number: 1 simethicone 80 mg oral tablet, chewable Start: 12/11/24 7:40:00 AM EST, 1 tab, PO, ac and hs, PRN: Abdominal bloating - gas pain Start Date: 12/11/24 Status: Ordered Repeat number: 1 spironolactone 25 mg oral tablet Start: 12/11/24 7:39:00 AM EST, 0.5 tab, PO, Daily Start Date: 12/11/24 Status: Ordered Repeat number: 1 Vitamin C Start: 11/27/24 3:47:00 PM EST, 1,000 mg =, Daily Start Date: 11/27/24 Status: Ordered Repeat number: 1 Xarelto 20 mg oral tablet Start: 12/25/24 12:24:00 PM EST, 1 tab, PO, qPM, Disp# 30 tab, Refills: 2, Pharmacy: [id number] Start Date: 12/25/24 Stop Date: 03/25/25 Status: Ordered Quantity: 30.0 Unit: tab Repeat number: 3 Mental Status 01/11/25 Barriers to Learning one year None evide nt Mandatory Health Literacy Documentation Yes Health Literacy Communication Barriers N ever Primary Language Greenlandic Problem List Condition Confirmation Course Effective Dates Status H ealth Status Informant Adjustment reaction with anxiety and depression Confirmed Active Arthritis Confirmed Active Changing skin lesion Confirmed Active 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 Confirmed Active Migraines Confirmed Active Osteoporosis Confirmed Active Breast cancer metastasized to multiple sites Confirmed Active Elevated LDL cholesterol level Confirmed Active Stress-induced cardiomyopathy Confirmed Active Tobacco user Confirmed Active Diagnosis Diagnosis Type Effective Dates Health Status Clini abdias Service Informant Brain bleed Discharge Diagnosis 01/11/25 Non-Specified Procedures Procedure Date Related Diagnosis Body Site Status Bone density scan 1 07/15/23 Compl eted Mammogram 2 06/11/23 Completed Mammogram 3 06/06/22 Completed Mammogram 4 09/21/19 Completed DXA scan T score 10/30/18 Complete d Mammogram 5 09/19/18 Completed Mammogram 6 03/24/18 Completed Mammogram 7 09/24/17 Completed Colonoscopy 8 07/04/17 Completed Mammogram,bilateral digital diagnostic mammogram tomosynthesis with cad and tarteted right ultrasound 10/26/16 Comple everett Mammogram - screening 9 10/19/15 C ompleted right diagnostic mammogarm with US 10 04/06/15 Completed Radiation 12/29/14 Completed US - Ultrasound 11 12/13/14 Comple [place] Lymph node biopsy 12 10/20/14 Comp leted Ultrasound 13 10/20/14 Completed US - Ultrasound 14 10/18/14 Comple [place] Partial mastectomy with axil tucker lymphadenectomy 09/13/14 Completed Partial mastectomy with axil tucker lymphadenectomy 09/13/14 Completed PET scan 09/01/14 Completed Bone density (bone mineral c ontent) study, 1 or more sites; dual photon absorptiometry, 1 or more sites 08/26/14 Completed Bone density scan 15 08/26/14 Comp leted Ultrasound guided biopsy 16 08/19/14 Completed Breast biopsy and related pr ocedures 17 08/18/14 Completed Diagnostic Mammogram with US guided Biopsy Right Breast 08/18/14 Completed Mammogram 18 08/06/14 Completed Knee Surgery [address] [place] [address] Impression: 1. AP Spine L1-L2 T-score: -3.0 2. Femur neck left T-score: -2.8 3. Femur neck right T-score: -2.8 4. Femur tota left T-score: -3.2 5. Femur total right T-score: -3.1 6. Z-score: -1.4. Low BMD [address] [place] [address] Impression: ACR BI-RADS CATEGORY 1: NEGATIVE 1. No evidence of malignancy [facility] Imp[facility]: ACR BI-RADS CATEGORY 1: NEGATIVE 1. No evidence of malignancy 4BILATERAL DIAGNOSTIC MAMMOGRAM IMPRESSION: BIRADS CAT 2: BENIGN. Expected postugical and post treatment changes in the right breast, and stable mammographic appearance of theleft breast, without mammographic evidence of malignancybilaterally. Recommend annual bilateral mammography in 1 year and conisder remaining a diagnostic patient. 5IMPRESSION: Expected post surgical changes in the right breast from prior lumpectomy, w/out mammo evidence of malignancy in either breast. 6DIAGNOSTIC MAMMOGRAM W/ CATALINA IMPRESSION: ACR BI-RADS CAT 2: BENIGN No mammographic evidence of malignancy. 7New small 3mm calcifications at the anterior aspect of the lumpectomy bed, which are probably benign and likely represent fat necrosis. Recommend follow-up diagnostic tomosynthesis mammograms of the right breast in 6 months to confirm stability. No mammographic evidence of malignancy. Advise follow up in 1 year. 8await path results. 9Impression: Expected postsurgical chnages in the eright breast from prior lumpectomy, with slight interval decrase in size of 2.2 cm postsurgical seroma a the lumpecotmy bed. There is no mammographicevidence of malignancy in either breast. Recommend routine bilateral mammograms in one year, i would recommend the patient remain a diagnostic patient so that spot magnification views can be performed of the lumpectomy bed. The patient has been verbally notified of the results. 10Impression: New postsurgical/post treatment changes within the right breast, without mammographic evidence of maliganacy. A follow-up right mammogram with posssible ultrasound in 6 months is recommended to demostrate stability. The patient will be due for annual left mammography at that time. No suspicious abnormality or lymphadenopathy along the surgical scar in an area of pain within the right axilla. Clinical follow-up is recommended. The patient has been verbally notified of the results. 11US R. Breast: US quidance for radiation. Imaging of the right 6 o'clock breast was performed with credit and collections representative images submitted. There is s seroma within the right 6 o'clock breast. 12Right axillary lymph node biopsy 13Impression: A marco was made on the skin overlying the abnormal right axillary lymph node for surgical planning purposes. 14US of R. Breast: Impression: The previously bx abnormal right axillary lymph node is again noted. Amark was made on the skin overlying the lymph node as requested by Dr. Best. 15T-score -1.8 osteopenia 16right breast 17right breast & lyphy node right axilla 181. Spiculated 2.1cm mass with associated pleomorphic calcifications in the Right breast at 6:00, atthe site of the palpable lump. The highly suspicious and US guided core needle biopsy is recommended for further evaluation. 2. Abnormal R axillary lymph node, for which US-guided core needle biopsy is recommended for further eval. 3. No mammographic evidence of malignancy in the Left breast. [id number] Social History Social History Type Response Tobacco Current every day sm oker, Cigarettes 1 Smoking Status Former Smoker, quit in last 30 days Sex Female Sex Representation Female (finding) 1Smokes 2-3 cigs per day. Patient Care team information Care Team Personnel Name: WOLFGANG Lizarraga Jessica A Position: Physician Asst [facility] - Family Med Member Role: Primary Care Provider Address: [address] [place] [id number] Telecom: [phone] Care Team Related Persons Name: IRIS GOODEN Name: DELILAH DIAZ Insurance Providers Guarantor name: NANCY GOODEN Health Plan Information #: 1 Payer: [employer] PPO Member Number: [id number] Policy Number: NA Group Number: [id number] Health Plan Information #: 2 Payer: [employer] PA[employer] Member Number: NA Policy Number: NA Group Number: NA Health Plan Information #: 3 Payer: [employer] P[employer] Member Number: [id number] Policy Number: NA Group Number: NA Health Plan Information #: 4 Payer: MEDICARE Member Number: NA Policy Number: NA Group Number: NA
--- OUTSIDE RECORDS SUMMARY | 2025-01-15 22:54 | External Medical Summary | Continuity of Care Document ---
Author Name Unknown Organization [facility] Address [address] [place] [id number] Care Team Providers Care Tray Delivery Aide Name Role Phone Mary Lizarraga Primary Care Physician [phone] [id number] Date(s): 11/27/24 - 12/11/[address] [phone] Encounter Diagnosis Intraparenchymal hematoma of brain(Discharge Diagnosis) - 11/27/24 Biliary pleural effusion(Discharge Diagnosis) - 11/29/24 Fracture of glenoid process of right scapula with delayed healing(Discharge Diagnosis) - 11/29/24 Metastatic neoplastic disease(Discharge Diagnosis) - 11/30/24 Cardiomyopathy(Discharge Diagnosis) - 12/01/24 Stress-induced cardiomyopathy(Discharge Diagnosis) - 12/02/24 Multiple subsegmental pulmonary emboli without acute cor pulmonale(Discharge Diagnosis) - 12/05/24 Delirium, acute(Discharge Diagnosis) - 12/10/24 Discharge Disposition: Inpatient Rehab Facility/Unit Attending Physician: MD Cristobal, Mary Ramirez Admitting Physician: MD Ayla, Loco Sanders Referring Physician: MD Jo Ann, Farooq Chanel Allergies, Adverse Reactions, Alerts Substance Criticality Severity Reaction Reaction Severity Status penicillins hives Diarrhea Active Allergy Not found in Search fall leaves Active shellfish diarrhea Active Pollen Itching of eye Swelling Active Trees itchy watery ey es, sinus problems more in the fall of the year, leaves Active Functional Status 12/11/24 History of Fall in Last 3 Months Woody Y es Presence of Secondary Diagnosis Woody Ye s Use of Ambulatory Aid Woody Crutches/can e/walker IV/Heparin Lock Fall Risk Woody Yes Gait/Transferring Fall Risk Woody Weak Mental Status Fall Risk Woody Forgets li mitations Woody Fall Risk Score 100 Woody Fall Risk High risk 12/11/24 Neurological Symptoms Confusion/Disorien tation ADLs Unable to assess Facial Symmetry Symmetric Gait Steady Swallowing Difficulty None Level of Consciousness Neuro Alert Hallucinations Present None Speech Pattern Clear Immunizations Given and Recorded Vaccine Date Status Refusal Reason SARS-CoV-2 mRNA (Pfizer 12+) bivalent 1 08/07/22 R ecorded SARS-CoV-2 mRNA ([id number]) 2 04/16/22 Recorded SARS-CoV-2 (COVID-19) mRNA BNT-162b2 [...] information-source unspecified 7Result Comment: Done at the [facility] 8Result Comment: 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 Medications acetaminophen 500 mg oral tablet Start: 12/11/24 7:38:00 AM EST, 2 tab, PO, q8h Start Date: 12/11/24 Status: Ordered brivaracetam 50 mg oral tablet Start: 12/11/24 7:38:00 AM EST, 1 tab, PO, bid Start Date: 12/11/24 Status: Ordered Calcium 600+D Start: 11/27/24 3:48:00 PM EST, Daily Start Date: 11/27/24 Status: Ordered diclofenac 1% topical gel Start: 12/11/24 7:40:00 AM EST, 1 appl, topical, qid, PRN: discomfort Start Date: 12/11/24 Status: Ordered Jardiance 10 mg oral tablet Start: 12/11/24 7:56:00 AM EST, 1 tab, PO, Daily Start Date: 12/11/24 Status: Ordered lidocaine 4% patch Start: 12/11/24 7:39:00 AM EST, transdermal, q24h Start Date: 12/11/24 Status: Ordered lisinopril 5 mg oral tablet Start: 12/11/24 7:39:00 AM EST, 1 tab, PO, Daily Start Date: 12/11/24 Status: Ordered Lovenox Start: 12/11/24 7:38:00 AM EST, 30 mg =, subQ, q24h Start Date: 12/11/24 Status: Ordered metoprolol succinate (ER) 50 mg, XL tablet, PO, 12/11/24 9:00:00 AM EST, 12/11/24 8:35:17 AM EST, Extended Release product, 12/03/24 9:35:00 EST Start Date: 12/11/24 Stop Date: 12/11/24 Status: Completed metoprolol succinate 50 mg oral tablet, extended release Start: 12/11/24 7:39:00 AM EST, 1 tab, PO, Daily Start Date: 12/11/24 Status: Ordered MiraLax Start: 12/11/24 7:39:00 AM EST, 17 g =, PO, bid Start Date: 12/11/24 Status: Ordered Pepcid 20 mg oral tablet Start: 12/11/24 7:39:00 AM EST, 1 tab, PO, q12h Start Date: 12/11/24 Status: Ordered simethicone 80 mg oral tablet, chewable Start: 12/11/24 7:40:00 AM EST, 1 tab, PO, ac and hs, PRN: Abdominal bloating - gas pain Start Date: 12/11/24 Status: Ordered spironolactone 25 mg oral tablet Start: 12/11/24 7:39:00 AM EST, 0.5 tab, PO, Daily Start Date: 12/11/24 Status: Ordered Vitamin C Start: 11/27/24 3:47:00 PM EST, 1,000 mg =, Daily Start Date: 11/27/24 Status: Ordered Mental Status 11/27/24 Primary Language Lao Problem List Condition Confirmation Course Effective Dates Status Health St atus Informant Arthritis Confirmed Active Changing skin lesion Confirmed Active Cancer of right breast Confirmed Active Migraines Confirmed Active Osteoporosis Confirmed Active Elevated LDL cholesterol level Confirmed Active Tobacco user Confirmed Active Diagnosis Diagnosis Type Effective Dates Health Status Clinical Service Informant Intraparenchymal hematoma of brain Discharge Diagnosis 11/27/24 Non-Specified Biliary pleural effusion Discharge Diagnosis 11/29/24 Non-Specified Fracture of glenoid process of right scapula with delayed healing Discharge Diagnosis 11/29/24 Non-Specified Metastatic neoplastic disease Discharge Diagnosis 11/30/24 Non-Specified Stress-induced cardiomyopathy Discharge Diagnosis 12/02/24 Non-Specified Cardiomyopathy Discharge Diagnosis 12/01/24 Non-Specified Multiple subsegmental pulmonary emboli without acute cor pulmonale Discharge Diagnosis 12/05/24 Non-Specified Delirium, acute Discharge Diagnosis 12/10/24 Non-Specified Procedures Procedure Date Related Diagnosis Body [...] mammogarm with US 10 04/06/15 Completed Radiation 2/25/15 Completed US - Ultrasound 11 12/13/14 Comple [...] 18 08/06/14 Completed Knee Surgery [address] [place] [address] Impression: 1. AP Spine L1-L2 T-score: -3.0 2. Femur neck left T-score: -2.8 3. Femur neck right T-score: -2.8 4. Femur tota left T-score: -3.2 5. Femur total right T-score: -3.1 6. Z-score: -1.4. Low BMD [address] [place] [address] Impression: ACR BI-RADS CATEGORY 1: NEGATIVE 1. No evidence of malignancy [address] [place] [address] Impression: ACR BI-RADS CATEGORY 1: NEGATIVE 1. [...] right 6 o'clock breast was performed with account service representative images submitted. There is s seroma [...] evidence of malignancy in the Left breast. [id number] Results Laboratory List Name Date Nephrology Panel 12/11/24 Nephrology Panel 12/10/24 Nephrology Panel 12/09/24 Complete Blood Count (CBC w Platelets) Prothrombin Time w/ INR (PT/INR) 12/07/24 Complete Blood Count (CBC w Platelets) Magnesium Level 12/05/24 Troponin T ( 5th Gen) (TROPONIN T (5th G EN)) 12/04/24 Partial Thromboplastin Time (PTT) 5 Troponin T ( 5th Gen) 12/04/24 Complete Blood Count (CBC w Platelets) Magnesium Level 12/04/24 Troponin T ( 5th Gen) 12/04/24 Magnesium Level 12/03/24 Comprehensive Metabolic Panel (CMP) 12/02 Added on Lab order 11/30/24 Lactate Dehydrogenase (LD) 11/30/24 Protein, Total (PROTEIN) 11/30/24 M-Stanislaw Quantitation, 24H Urine (Urine B ence Zavala Protein Panel, 24h, Urine) 11/29/24 Urine Volume (measured) (VOLUME, TOTAL) 11/29/24 Protein, Fluid (Fluid Protein) 11/29/24 Cell Count w Differential, Fluid (Fluid Cell Count w Differential) 11/29/24 Miscellaneous Lab Order (Miscellaneous L ab Order, Fluid) 11/29/24 Hematocrit, Fluid (Fluid Hematocrit) 11/05 04/28 Glucose, Fluid (Fluid Glucose) 11/29/24 Lactate Dehydrogenase, Fluid (Fluid LDH) 11/29/24 Triglycerides, Fluid 11/29/24 Miscellaneous Lab Order (Miscellaneous L ab Order, Fluid) 11/29/24 Miscellaneous Lab Order (Miscellaneous L ab Order, Fluid) 11/29/24 Hold Extra Fluid 11/29/24 Albumin, Fluid (ALBUMIN, FLUID) 11/29/24 Amylase Level, Fluid (AMYLASE, FLUID) Brain Natriuretic Peptide Fluid (NT PRO BNP FLUID) 11/29/24 Cholesterol, Fluid (CHOLESTEROL, FLUID) 11/29/24 Specimen Type (SPECIMEN TYPE) 11/29/24 Immunoglobulin Free Light Chains (Light Chains, Quant, Serum) 11/28/24 Pathologist Review Smear Panel (Peripher al Smear, Pathology Review) 11/28/24 Protein Electrophoresis, Serum 11/28/24 Added on Lab order 11/28/24 Osmolality 11/28/24 Osmolality, Urine 11/28/24 Sodium, Urine, Random (Urine Sodium, Ran dom) 11/28/24 Liver Profile (LFT) 11/28/24 Pathologist Review Smear Panel (PATH REV IEW SMR PKG) 11/28/24 MRSA Surveillance (Nasal Swab) 11/27/24 Sodium, Urine, Random 11/27/24 Specific [place], Urine 11/27/24 Osmolality, Urine (Urine Osmolality) 11/05 02/26 Sodium, Urine, Random 11/27/24 Urine Analysis w/ Reflexed Microscopic. 11/27/24 Osmolality 11/27/24 Thyroid Stimulating Hormone (TSH) 5 NT-Pro BNP (BNP, NT-Pro) 11/27/24 Complete Blood Count w Differential (CBC w Platelets and Diff) 11/27/24 Hemoglobin A1C (Hgb A1C) 11/27/24 Partial Thromboplastin Time (PTT) 5 Prothrombin Time w/ INR (PT/INR) 11/27/24 Most recent to oldest [Reference Range]: 1 2 3 Prot, Serum [6.1-7.9 g/dL] 5.9 g/dL *LOW* (11/28/24 6:23 PM) eGFR CKD-EPI [>60 mL/min/1.73 m2] 79 mL/min/1.73 m2 (12/11/24 7:12 AM) 86 mL/min/1.73 m2 (12/10/24 7:51 AM) 78 mL/min/1.73 m2 (12/09/24 7:44 AM) Estimated Average Glucose 117 mg/dL (11/27/24 2:50 PM) Gamma Globulin, Serum Protein [0.7-1.5 g/dL] 0.8 g/dL (11/28/24 6:23 PM) Alpha-1 Globulin, Serum Protein [0.2-0.4 g/dL] 0.3 g/dL (11/28/24 6:23 PM) Beta Globulin, Serum Protein [0.5-1.0 g/dL] 0.6 g/dL (11/28/24 6:23 PM) Alpha-2 Globulin, Serum Protein [0.4-0.9 g/dL] 0.8 g/dL (11/28/24 6:23 PM) Albumin, Serum Protein [3.4-5.2 g/dL] 3.4 g/dL (11/28/24 6:23 PM) Troponin T ( 5th Gen) [<14 ng/L] 55 ng/L *HI* (12/04/24 8:40 PM) REQUEST CREDITED ng/L 2 (12/04/24 8:39 PM) 57 ng/L 3 *HI* (12/04/24 8:01 AM) Troponin T ( 5th Gen) Delta NOT CALCULATED (12/04/24 8:40 PM) REQUEST CREDITED 4 (12/04/24 8:39 PM) NOT CALCULATED (12/04/24 8:01 AM) Request of Physician serum protein level serum LDH (11/30/24 5:09 AM) pathology to review peripharal smear. (11/28/24 4:01 AM) Action Taken YES (11/30/24 5:09 AM) YES (11/28/24 4:01 AM) Smr (Path Rev) Technical portion complete. Interpretation to follow. (11/28/24 6:23 PM) Technical portion complete. Interpretation to follow. (11/28/24 4:01 AM) Ig Free [place] [0.33-1.94 mg/dL] 1.65 mg/dL (11/28/24 6:23 PM) Ig Free Lambda [0.57-2.63 mg/dL] 1.23 mg/dL (11/28/24 6:23 PM) [place]/Lambda Ratio (s) [0.26-1.65 mg/dL] 1.34 mg/dL (11/28/24 6:23 PM) Imm. Retics [5.0-25.0 %] 4.9 % *LOW* (11/28/24 6:23 PM) 5.8 % (11/28/24 4:01 AM) BNP, NT-Pro [<450 pg/mL] 2578 pg/mL *HI* (11/27/24 3:48 PM) Source, Other Pleural Fluid (11/29/24 10:50 AM) Pleural Fluid (11/29/24 10:49 AM) Pleural Fluid (11/29/24 10:48 AM) Winkler/Mac/[place]es[place], fl 11 % (11/29/24 10:46 AM) Estimated CrCl 43.60 mL/min (12/11/24 8:43 AM) 46.63 mL/min (12/10/24 9:14 AM) 43.04 mL/min (12/09/24 10:18 AM) M-Stanislaw, Quant (24h) 0.0 mg/24 hrs (11/29/24 5:51 PM) Brain Natriuretic Peptide Fluid 3341 pg/mL 5 (11/29/24 10:46 AM) Retic Hgb [30.8-36.6 pg] 36.5 pg (11/28/24 6:23 PM) 36.3 pg (11/28/24 4:01 AM) MPV [9.0-12.2 fL] 10.3 fL (12/08/24 6:39 AM) 10.6 fL (12/05/24 6:24 AM) 10.3 fL (12/04/24 8:01 AM) Immature Gran% 0.4 % (11/28/24 6:23 PM) 1.3 % (11/28/24 4:01 AM) 1.4 % (11/27/24 2:50 PM) Neut% 84.3 % (11/28/24 6:23 PM) 85.6 % (11/28/24 4:01 AM) 91.1 % (11/27/24 2:50 PM) Lymph% 3.7 % (11/28/24 6:23 PM) 2.9 % (11/28/24 4:01 AM) 2.7 % (11/27/24 2:50 PM) [place]ink[place]% 10.9 % (11/28/24 6:23 PM) 9.6 % (11/28/24 4:01 AM) 4.7 % (11/27/24 2:50 PM) Baso% 0.2 % (11/28/24 6:23 PM) 0.2 % (11/28/24 4:01 AM) 0.1 % (11/27/24 2:50 PM) Eos% 0.5 % (11/28/24 6:23 PM) 0.4 % (11/28/24 4:01 AM) 0.0 % (11/27/24 2:50 PM) Immat Gran, Abs [0-0.4 K/uL] 0.06 K/uL (11/28/24 6:23 PM) 0.17 K/uL (11/28/24 4:01 AM) 0.20 K/uL (11/27/24 2:50 PM) Neut, Abs [2.0-7.7 K/uL] 11.30 K/uL *HI* (11/28/24 6:23 PM) 11.11 K/uL *HI* (11/28/24 4:01 AM) 12.79 K/uL *HI* (11/27/24 2:50 PM) Lymph, Abs [1.0-3.4 K/uL] 0.50 K/uL *LOW* (11/28/24 6:23 PM) 0.37 K/uL *LOW* (11/28/24 4:01 AM) 0.38 K/uL *LOW* (11/27/24 2:50 PM) [place], Abs [0-1.0 K/uL] 1.47 K/uL *HI* (11/28/24 6:23 PM) 1.25 K/uL *HI* (11/28/24 4:01 AM) 0.66 K/uL (11/27/24 2:50 PM) Baso, Abs [0-0.1 K/uL] 0.03 K/uL (11/28/24 6:23 PM) 0.03 K/uL (11/28/24 4:01 AM) 0.02 K/uL (11/27/24 2:50 PM) Eos, Abs [0-0.5 K/uL] 0.07 K/uL (11/28/24 6:23 PM) 0.05 K/uL (11/28/24 4:01 AM) 0.00 K/uL (11/27/24 2:50 PM) Type of Diff: AUTO (11/28/24 6:23 PM) AUTO (11/28/24 4:01 AM) AUTO (11/27/24 2:50 PM) RDW [11.5-14.2 %] 13.4 % (12/08/24 6:39 AM) 13.4 % (12/05/24 6:24 AM) 13.5 % (12/04/24 8:01 AM) MRSA Surveillance, on Admission [MSND] MRSA NOT detected (11/27/24 1:53 PM) Anion Gap [5-14 mmol/L] 11 mmol/L (12/11/24 7:12 AM) 9 mmol/L (12/10/24 7:51 AM) 10 mmol/L (12/09/24 7:44 AM) Alb [3.5-5.2 g/dL] 3.5 g/dL (12/11/24 7:12 AM) 3.6 g/dL (12/10/24 7:51 AM) 3.5 g/dL (12/09/24 7:44 AM) Alk Phos [35-115 unit/L] 112 unit/L 6 (12/02/24 1:27 AM) 101 unit/L 7 (11/28/24 2:27 PM) ALT [0-33 unit/L] 24 unit/L (12/02/24 1:27 AM) 18 unit/L (11/28/24 2:27 PM) AST [0-32 unit/L] 32 unit/L (12/02/24 1:27 AM) Bili (u) [NEG] NEGATIVE (11/27/24 5:08 PM) BUN [6-23 mg/dL] 12 mg/dL (12/11/24 7:12 AM) 12 mg/dL (12/10/24 7:51 AM) 11 mg/dL (12/09/24 7:44 AM) Ca [8.4-10.2 mg/dL] 9.6 mg/dL (12/11/24 7:12 AM) 9.7 mg/dL (12/10/24 7:51 AM) 9.0 mg/dL (12/09/24 7:44 AM) Cl- [98-107 mmol/L] 101 mmol/L (12/11/24 7:12 AM) 100 mmol/L (12/10/24 7:51 AM) 98 mmol/L (12/09/24 7:44 AM) HCO3 [22-29 mmol/L] 25 mmol/L (12/11/24 7:12 AM) 28 mmol/L (12/10/24 7:51 AM) 26 mmol/L (12/09/24 7:44 AM) Cret [0.60-1.00 mg/dL] 0.77 mg/dL (12/11/24 7:12 AM) 0.72 mg/dL (12/10/24 7:51 AM) 0.78 mg/dL (12/09/24 7:44 AM) BF Source PLEURAL FLUID 8 (11/29/24 10:46 AM) Alb, fl 3.0 g/dL 9 (11/29/24 10:46 AM) Serum Electro Intrp Technical results complete, interpretation to follow on Powerchart. (11/28/24 6:23 PM) Amylase, fl 90 unit/L 10 (11/29/24 10:46 AM) Baso,fl 0 % (11/29/24 10:46 AM) Eos,fl 0 % (11/29/24 10:46 AM) Gluc, fl 117 mg/dL 11 (11/29/24 10:46 AM) Hct,fl <2.0 % (11/29/24 10:46 AM) LDH, fl 104 unit/L 12 (11/29/24 10:46 AM) Lymph,fl 81 % (11/29/24 10:46 AM) Nuc Cell,fl 134 /uL 13 (11/29/24 10:46 AM) Neut,fl 8 % (11/29/24 10:46 AM) OtherMono,fl 0 % (11/29/24 10:46 AM) RBC,fl <1000 /uL (11/29/24 10:46 AM) Protein, fl 4.7 g/dL 14 (11/29/24 10:46 AM) HbA1c [<5.7 %] 5.7 % 15 *HI* (11/27/24 2:50 PM) Glu [74-109 mg/dL] 78 mg/dL 16 (12/11/24 7:12 AM) 81 mg/dL 17 (12/10/24 7:51 AM) 83 mg/dL 18 (12/09/24 7:44 AM) Hct [35-44 %] 42.5 % (12/08/24 6:39 AM) 43.1 % (12/05/24 6:24 AM) 43.9 % (12/04/24 8:01 AM) Hgb [11.7-15.0 g/dL] 14.5 g/dL (12/08/24 6:39 AM) 14.6 g/dL (12/05/24 6:24 AM) 14.8 g/dL (12/04/24 8:01 AM) INR [0.9-1.1] 1.0 19 (2/3/25 8:35 AM) 1.1 20 (11/27/24 2:50 PM) K [3.5-5.1 mmol/L] 3.9 mmol/L (12/11/24 7:12 AM) 3.8 mmol/L (12/10/24 7:51 AM) 4.4 mmol/L 21 (12/09/24 7:44 AM) Ketones [NEG mg/dL] NEGATIVE mg/dL (11/27/24 5:08 PM) LDH [135-250 unit/L] 205 unit/L (11/30/24 5:08 AM) Leuk Est [NEG] NEGATIVE (11/27/24 5:08 PM) MCH [28-33 pg] 31.7 pg (12/08/24 6:39 AM) 31.1 pg (12/05/24 6:24 AM) 31.6 pg (12/04/24 8:01 AM) MCHC [32-36 g/dL] 34.1 g/dL (12/08/24 6:39 AM) 33.9 g/dL (12/05/24 6:24 AM) 33.7 g/dL (12/04/24 8:01 AM) MCV [81-96 fL] 92.8 fL (12/08/24 6:39 AM) 91.7 fL (12/05/24 6:24 AM) 93.6 fL (12/04/24 8:01 AM) Mg [1.6-2.6 mg/dL] 2.0 mg/dL (12/05/24 6:24 AM) 2.0 mg/dL (12/04/24 8:01 AM) 2.0 mg/dL (12/03/24 6:59 AM) Na [136-145 mmol/L] 137 mmol/L (12/11/24 7:12 AM) 137 mmol/L (12/10/24 7:51 AM) 134 mmol/L *LOW* (12/09/24 7:44 AM) Test-Name REQUEST CREDITED 22 (11/29/24 10:50 AM) REQUEST CREDITED 23 (11/29/24 10:49 AM) REQUEST CREDITED 24 (11/29/24 10:48 AM) Nitrite (u) [NEG] NEGATIVE (11/27/24 5:08 PM) Osmolality [275-295 mOsm/kg] 274 mOsm/kg *LOW* (11/28/24 2:27 PM) 276 mOsm/kg (11/27/24 3:48 PM) PO4 [2.5-4.5 mg/dL] 2.7 mg/dL (12/11/24 7:12 AM) 3.1 mg/dL (12/10/24 7:51 AM) 2.9 mg/dL (12/09/24 7:44 AM) Plts [150-350 K/uL] 334 K/uL (12/08/24 6:39 AM) 303 K/uL (12/05/24 6:24 AM) 283 K/uL (12/04/24 8:01 AM) PT [12.0-14.2 seconds] 13.0 seconds (12/07/24 8:35 AM) 13.7 seconds (11/27/24 2:50 PM) PTT [23-35 seconds] 34 seconds (12/04/24 8:39 PM) 32 seconds (11/27/24 2:50 PM) RBC [3.90-5.00 M/uL] 4.58 M/uL (12/08/24 6:39 AM) 4.70 M/uL (12/05/24 6:24 AM) 4.69 M/uL (12/04/24 8:01 AM) Result & Ref REQUEST CREDITED 25 (11/29/24 10:50 AM) REQUEST CREDITED 26 (11/29/24 10:49 AM) REQUEST CREDITED 27 (11/29/24 10:48 AM) Retics (abs) [16.7-96.7 K/uL] 86.7 K/uL (11/28/24 6:23 PM) 83.2 K/uL (11/28/24 4:01 AM) Retic (%) [0.40-2.05 %] 1.73 % (11/28/24 6:23 PM) 1.79 % (11/28/24 4:01 AM) T Bili [0.0-1.2 mg/dL] 0.6 mg/dL (12/02/24 1:27 AM) 1.2 mg/dL (11/28/24 2:27 PM) Prot [6.4-8.3 g/dL] 5.2 g/dL *LOW* (12/02/24 1:27 AM) 5.3 g/dL *LOW* (11/30/24 5:08 AM) TG, fl 19 mg/dL 28 (11/29/24 10:46 AM) TSH [0.30-4.20 uIU/mL] 1.81 uIU/mL (11/27/24 3:48 PM) Appear (u) CLEAR (11/27/24 5:08 PM) Color (u) STRAW (11/27/24 5:08 PM) Glu (u) [NEG mg/dL] NEGATIVE mg/dL (11/27/24 5:08 PM) Hgb (u) [NEG] NEGATIVE (11/27/24 5:08 PM) Na (u) 44 mmol/L 29 (11/28/24 1:58 PM) 103 mmol/L 30 (11/27/24 5:08 PM) REQUEST CREDITED mmol/L 31 (11/27/24 5:08 PM) Osmol (u) [100-1000 mOsm/kg] 463 mOsm/kg (11/28/24 1:58 PM) 328 mOsm/kg (11/27/24 5:08 PM) pH (u) [5.0-8.0 unit] 7.0 unit (11/27/24 5:08 PM) Prot (u) [NEG mg/dL] NEGATIVE mg/dL (11/27/24 5:08 PM) Urobili [0.1-1.0 EU/dL] 0.1-1.0 EU/dL (11/27/24 5:08 PM) SG [1.005-1.030] 1.009 (11/27/24 5:08 PM) DUPLICATE REQUEST 32 (11/27/24 5:08 PM) Protein (u) [<0.150 g/24 hrs] 0.170 g/24 hrs *HI* (11/29/24 5:51 PM) Volume (u) 850 mL (11/29/24 5:50 PM) WBC [4.0-10.4 K/uL] 8.30 K/uL (12/08/24 6:39 AM) 8.10 K/uL (12/05/24 6:24 AM) 8.13 K/uL (12/04/24 8:01 AM) Chol, fl 122 mg/dL 33 (11/29/24 10:46 AM) Hold Extra Fluid SPECIMEN HELD IN VIROLOGY. CALL [phone] TO ADD STUDIES. (11/29/24 10:46 AM) 1Result Comment: To use the high-sensitivity cTnT assay, at least 2 blood samples should be drawnat time 0 and then at least 1h later. If the cTnT concentration at time 0 is greater than or equal to 53 ng/L in a patient whose clinicalpresentation is consistent with acute coronary syndrome, then there is a high likelihood that acutemyocardial injury is present. However, confirmation of acute myocardial injury still requires a second cTnT raheem drawn. Delta cut-offs for determining the presence of acute myocardial injury have beenvalidated at the 1-hour and 2-hour time points referenced here. A 1-hour delta troponin >5 ng/L indicates acute myocardial injury. A 2h delta troponin >7 ng/L indicates acute myocardial injury. Values below these are consistent with chronic myocardial injury. For patients where there is a high index of suspicion for acute coronary syndrome, repeating the tests at 1 or 2 hours, and calculating a new delta, may be indicated. If the second sample is collected in less than 60 minutes, no delta calculationwill be performed. Deltas for blood samples drawn more than 3 hours apart have not been validated and will not be reported. Please interpret with caution. 2Result Comment: NO GREEN RECEIVED 3Result Comment: To use the high-sensitivity cTnT assay, at least 2 blood samples should be drawnat time 0 and then at least 1h later. If the cTnT concentration at time 0 is greater than or equal to 53 ng/L in a patient whose clinicalpresentation is consistent with acute coronary syndrome, then there is a high likelihood that acutemyocardial injury is present. However, confirmation of acute myocardial injury still requires a second cTnT raheem drawn. Delta cut-offs for determining the presence of acute myocardial injury have beenvalidated at the 1-hour and 2-hour time points referenced here. A 1-hour delta troponin >5 ng/L indicates acute myocardial injury. A 2h delta troponin >7 ng/L indicates acute myocardial injury. Values below these are consistent with chronic myocardial injury. For patients where there is a high index of suspicion for acute coronary syndrome, repeating the tests at 1 or 2 hours, and calculating a new delta, may be indicated. If the second sample is collected in less than 60 minutes, no delta calculationwill be performed. Deltas for blood samples drawn more than 3 hours apart have not been validated and will not be reported. Please interpret with caution. 4Result Comment: NO GREEN RECEIVED 5Result Comment: The reference range and/or other method performance specifications for this bodyfluid have not been established or verified by the [facility] Clinical Laboratory. The results may also be inaccurate due to the presence of potential interferingsubstances. The test result must also be integrated into the clinical context for interpretation. 6Result Comment: Low levels of ALKP may indicate a deficiency in zinc, magnesium, or malnutritionbutcan also be an indicator of a rare genetic disease hypophosphatasia (HPP). 7Result Comment: Low levels of ALKP may indicate a deficiency in zinc, magnesium, or malnutritionbutcan also be an indicator of a rare genetic disease hypophosphatasia (HPP). 8Result Comment: RIGHT 9Result Comment: The reference range and/or other method performance specifications for this bodyfluid have not been established or verified by the [facility] Clinical Laboratory. The results may also be inaccurate due to the presence of potential interferingsubstances. The test result must also be integrated into the clinical context for interpretation. 10Result Comment: The reference range and/or other method performance specifications for this bodyfluid have not been established or verified by the [facility]. The results may also be inaccurate due to the presence of potential interferingsubstances. The test result must also be integrated into the clinical context for interpretation. 11Result Comment: The reference range and/or other method performance specifications for this bodyfluid have not been established or verified by the [facility]. The results may also be inaccurate due to the presence of potential interferingsubstances. The test result must also be integrated into the clinical context for interpretation. 12Result Comment: The reference range and/or other method performance specifications for this bodyfluid have not been established or verified by the [facility]. The results may also be inaccurate due to the presence of potential interferingsubstances. The test result must also be integrated into the clinical context for interpretation. 13Result Comment: "The reference intervals and other method performance specifications are unavailable for this body fluid. Comparision of the result with concentration in the blood, serum or plasma isrecommended." 14Result Comment: The reference range and/or other method performance specifications for this bodyfluid have not been established or verified by the [facility]. The results may also be inaccurate due to the presence of potential interferingsubstances. The test result must also be integrated into the clinical context for interpretation. 15Result Comment: ADA Recommended [place] Reference Range: Normal: <5.7% Prediabetes: 5.7-6.4% Diabetes: >6.4% Hb A1c results in patients with severe anemia or recent RBC transfusion are unreliable and do not represent the patient glycemic control. 16Result Comment: ADA recommendation for FASTING Serum/Plasma Glucose: Normal: 70-100 mg/dL Prediabetes: 100-125 mg/dL Diabetes: 126 mg/dL or higher 17Result Comment: ADA recommendation for FASTING Serum/Plasma Glucose: Normal: 70-100 mg/dL Prediabetes: 100-125 mg/dL Diabetes: 126 mg/dL or higher 18Result Comment: ADA recommendation for FASTING Serum/Plasma Glucose: Normal: 70-100 mg/dL Prediabetes: 100-125 mg/dL Diabetes: 126 mg/dL or higher 19Result Comment: Suggested therapeutic range for low-intensity Coumadin therapy for venous thromboembolism is INR 2.0-3.0 (ex: atrial fibrillation, history of TIA/stroke). For high risk patients, the suggested therapeutic range is INR 2.5-3.5 (ex: mechanical prosthetic valves). 20Result Comment: Suggested therapeutic range for low-intensity Coumadin therapy for venous thromboembolism is INR 2.0-3.0 (ex: atrial fibrillation, history of TIA/stroke). For high risk patients, the suggested therapeutic range is INR 2.5-3.5 (ex: mechanical prosthetic valves). 21Result Comment: HEMOLYZED SPECIMEN 22Result Comment: Lab orders combined with other orders received on the same specimen. 23Result Comment: Lab orders combined with other orders received on the same specimen. 24Result Comment: Lab orders combined with other orders received on the same specimen. 25Result Comment: Lab orders combined with other orders received on the same specimen. 26Result Comment: Lab orders combined with other orders received on the same specimen. 27Result Comment: Lab orders combined with other orders received on the same specimen. 28Result Comment: The reference range and/or other method performance specifications for this bodyfluid have not been established or verified by the [facility] Clinical Laboratory. The results may also be inaccurate due to the presence of potential interferingsubstances. The test result must also be integrated into the clinical context for interpretation. 29Result Comment: Reference Range for Random Urine Not Established. 30Result Comment: Reference Range for Random Urine Not Established. 31Result Comment: Lab orders combined with other orders received on the same specimen. 32Result Comment: REQUEST CREDITED 33Result Comment: The reference range and/or other method performance specifications for this bodyfluid have not been established or verified by the [facility] Clinical Laboratory. The results may also be inaccurate due to the presence of potential interferingsubstances. The test result must also be integrated into the clinical context for interpretation. Orders for Microbiology Reports Name Date Anaerobe Culture w Smear, Fluid 11/29/24 Fluid Culture w Smear 11/29/24 Acid Fast Bacillus Cx/Smear, Fluid (AFB Culture and Smear, Fluid) 11/29/24 Fungus Culture w Smear, Fluid 11/29/24 Fluid Culture (ALERT collection containe r) w Sm (CULTURE, FLUID (ALERT)) 11/29/24 Respiratory Pathogen Panel, by PCR (RVP) 11/28/24 Blood Culture (Aerobic AND Anaerobic) Blood Culture (Aerobic AND Anaerobic) (C ULTURE, BLOOD) 11/28/24 Urine Culture 11/27/24 Microbiology Reports TEST:AFB.Culture, Fluid STATUS:Unauthenticated BODY SITE: SOURCE:Fluid COLLECTED DATE/TIME:11/29/24 10:46 AM Culture NO ACID FAST BACILLI ISOLATED AFTER 9 DAYS TEST:Fungus.Culture, Fluid STATUS:Unauthenticated BODY SITE: SOURCE:Fluid COLLECTED DATE/TIME:11/29/24 10:46 AM Culture NO FUNGUS ISOLATED AFTER 12 DAYS TEST:Fluid.Cx STATUS:Auth (Verified) BODY SITE: SOURCE:Fluid COLLECTED DATE/TIME:11/29/24 10:46 AM Status FINAL 12/02/2024 TEST:Anaerobe.Culture, Fluid STATUS:Auth (Verified) BODY SITE: SOURCE:Fluid COLLECTED DATE/TIME:11/29/24 10:46 AM Status FINAL 12/04/2024 TEST:Fluid Cx. STATUS:Auth (Verified) BODY SITE: SOURCE:Fluid COLLECTED DATE/TIME:11/29/24 7:10 AM Status FINAL 12/04/2024 TEST:Blood.Cx STATUS:Auth (Verified) BODY SITE: SOURCE:Blood COLLECTED DATE/TIME:11/28/24 1:56 PM Status FINAL 12/03/2024 TEST:Respiratory Virus Panel, by PCR STATUS:Auth (Verified) BODY SITE: SOURCE:Nasal/Pharyngeal COLLECTED DATE/TIME:11/28/24 1:56 PM Multiplex PCR Negative for: Severe Acute Respiratory Syndrome Coronavirus (SARS-CoV-2/COVID-19), Influenza A and B, Adenovirus, Bordetella pertussis, Bordetella parapertussis, Chlamydophila pneumoniae, Coronavirus (229E,HKU1,NL63,OC43), Human metapneumovirus, Mycoplasma pneumoniae, Parainfluenza Types 1,2,3, and 4, Respiratory syncytial virus, and Rhinovirus/Enterovirus. TEST:Blood.Cx STATUS:Auth (Verified) BODY SITE: SOURCE:Blood COLLECTED DATE/TIME:11/28/24 1:55 PM Status FINAL 12/03/2024 TEST:Urine.Cx STATUS:Auth (Verified) BODY SITE: SOURCE:Urine COLLECTED DATE/TIME:11/27/24 5:08 PM Culture NO GROWTH 2 DAYS Radiology Reports (Most Recent Ten) * Exam Date Time Procedure Performing Provider Status 12/07/24 5:20 PM Echo TransTHORacic TTE Limited w/ Cont Diana Armando; Modified Notes: (Echo TransTHORacic TTE Limited w/ Cont) Reason For Exam: follow up stress cardiomyopathy wtih LAD territory hypokinesis Echo TransTHORacic TTE Limited w/ Cont Report Signatures Amended by Dr. Ren Olguin MD on 12/07/2024 06:[address] Ren Olguin MD on 12/07/2024 06:09 PM [place] Act 112: No-No further action needed Summary 1. Failed 2D images were enhanced with Definity per lab protocol. 2. Normal left ventricular size with mildly reduced systolic function. 3. Estimated ejection fraction 40-45%. 4. Poor endocardial visualization. Hypokinesis appears to be diffuse. 5. No left ventricular hypertrophy. 6. Moderate pericardial effusion WITHOUT evidence of tamponade. Left pleural effusion is also seen. 7. Right ventricle is not well visualized. Limited views suggest normal RV size with low normal systolic function by fractional area change. 8. No significant valvular abnormalities by 2D imaging. Overall Doppler interrogation was limited on this study otherwise. 9. Since prior study of 11/30/24, LV function is somewhat more vigorous. Patient Info Name: NANCY FORBES Age: 78 years : 1945 Gender: Female Ht: 152 cm Wt: 45 kg BSA: 1.38 m2 HR: 56 bpm BP: 131 / 62 mmHg Heart Rhythm: Sinus Bradycardia Technical Quality: Technically difficult study Exam Date: 12/07/2024 4:45 PM Exam Location: [address] [place] [address] Patient Status: Inpatient Staff Ordering Physician: Kamilah Ann Service Unit Operator [employer]: Diana Armando Attending Physician: Mary Jain Study Info CPT J3490 - [id number] - Indications - follow up stress cardiomyopathy wtih LAD territory hypokinesis Procedure(s) * A complete two-dimensional, color flow and Doppler transthoracic echocardiogram was performed. * Failed 2D images were enhanced with Definity per lab protocol. * Service Unit Operator [employer], Diana Armando, provided education about ultrasound enhancing agent to the patient. Exam Type: Cardiac Basic Left Ventricle Normal left ventricular size with mildly reduced systolic function. Estimated ejection fraction 40-45%. Poor endocardial visualization. Hypokinesis appears to be diffuse. No left ventricular hypertrophy. Right Ventricle Right ventricle is not well visualized. Limited views suggest normal RV size with low normal systolic function by fractional area change. Left Atrium Normal left atrial size. Right Atrium Normal right atrial size. Aortic Valve Trileaflet aortic valve. Pulmonic Valve Pulmonic valve not well visualized. Mitral Valve Mild mitral valve regurgitation on limited Doppler interrogation. Tricuspid Valve Mild tricuspid regurgitation on limited Doppler interrogation. Pericardium/Pleural Moderate pericardial effusion WITHOUT evidence of tamponade. Left pleural effusion is also seen. Inferior Vena Cava Normal IVC size and inspiratory collapse. Aorta Normal aortic root. Mitral Valve Name Value Normal MV Doppler MV PHT 87 ms MV Diastolic Function MV E Peak Velocity 0.39 m/s <=0.50 MV A Peak Velocity 0.81 m/s MV E/A 0.49 <=0.80 MV Decel Time 299 ms Tricuspid Valve Name Value Normal Estimated PAP/RSVP RA Pressure 3 mmHg <=5 TV Diastolic Function TV E Peak Velocity 0.26 m/s TV A Peak Velocity 0.27 m/s TV E/A 0.95 0.80-2.00 TV Decel Time 225 ms >=120 Aorta Name Value Normal Ascending Aorta Sinus of Valsalva Diameter 2.7 cm 2.7-3.3 Sinus of Valsalva Index 1.96 cm/m2 1.60-2.00 Venous Name Value Normal IVC/SVC IVC Diameter (Insp 2D) 0.5 cm IVC Diameter (Exp 2D) 1.0 cm <=2.1 IVC Diameter Percent Change (2D) 46 % >=50 Ventricles Name Value Normal LV Dimensions 2D/MM IVS Diastolic Thickness (2D) 0.8 cm 0.6-0.9 LVID Diastole (2D) 3.7 cm 3.3-5.1 LVIW Diastolic Thickness (2D) 0.7 cm 0.6-0.9 LVID Systole (2D) 2.2 cm 2.2-3.5 LV Mass (2D Cubed) 80.53 g 67.00-162.00 LV Mass Index (2D Cubed) 0.01 g/cm2 0.00-0.01 Relative Wall Thickness (2D) 0.40 LV Fractional Shortening/Ejection Fraction 2D/MM LV Fractional Shortening (2D) 40 % 27-45 RV Dimensions 2D/MM RV Basal Diastolic Dimension 2.3 cm 2.5-4.1 RV Diastolic Area (4C) 10.2 cm2 8.0-20.0 RV Systolic Area (4C) 6.6 cm2 3.0-11.0 RV Fractional Shortening 2D RV FAC (4C) 35 % >=35 Atria Name Value Normal LA Dimensions LA Area (4C) 7.8 cm2 LA Length (4C) 3.6 cm LA Area (2C) 8.0 cm2 LA Length (2C) 3.4 cm LA Volume (4C A-L) 14.23 ml LA Volume (2C A-L) 15.85 ml LA Volume (BP A-L) 15 ml 22-52 LA Volume Index (BP A-L) 11.23 ml/m2 <=34.00 RA Dimensions RA Area (4C) 10.6 cm2 <=18.0 Final Signed by:MD Sharif, Ren Ibarra Signed (Electronic Signature):12/07/2024 4:45 p Echo TransTHORacic TTE Limited w/ Cont Report Signatures Finalized by Dr. Ren Olguin MD on 12/07/2024 06:09 PM [place] Act 112: No-No further action needed Summary 1. Failed 2D images were enhanced with Definity per lab protocol. 2. Normal left ventricular size with mildly reduced systolic function. 3. Estimated ejection fraction 40-45%. 4. Poor endocardial visualization. Hypokinesis appears to be diffuse. 5. No left ventricular hypertrophy. 6. Moderate pericardial effusion WITHOUT evidence of tamponade. 7. Right ventricle is not well visualized. Limited views suggest normal RV size with low normal systolic function by fractional area change. 8. No significant valvular abnormalities by 2D imaging. Overall Doppler interrogation was limited on this study otherwise. 9. Since prior study of 11/30/24, LV function is somewhat more vigorous. Patient Info Name: NANCY FORBES Age: 78 years : 1945 Gender: Female Ht: 152 cm Wt: 45 kg BSA: 1.38 m2 HR: 56 bpm BP: 131 / 62 mmHg Heart Rhythm: Sinus Bradycardia Technical Quality: Technically difficult study Exam Date: 12/07/2024 4:45 PM Exam Location: [address] [place] [address] Patient Status: Inpatient Staff Ordering Physician: Kamilah Ann Service Unit Operator [employer]: Diana Armando Attending Physician: Mary Jain Study Info [facility] [id number] - [id number] - Indications - follow up stress cardiomyopathy wtih LAD territory hypokinesis Procedure(s) * A complete two-dimensional, color flow and Doppler transthoracic echocardiogram was performed. * Failed 2D images were enhanced with Definity per lab protocol. * Service Unit Operator [employer], Diana Armando, provided education about ultrasound enhancing agent to the patient. Exam Type: Cardiac Basic Left Ventricle Normal left ventricular size with mildly reduced systolic function. Estimated ejection fraction 40-45%. Poor endocardial visualization. Hypokinesis appears to be diffuse. No left ventricular hypertrophy. Right Ventricle Right ventricle is not well visualized. Limited views suggest normal RV size with low normal systolic function by fractional area change. Left Atrium Normal left atrial size. Right Atrium Normal right atrial size. Aortic Valve Trileaflet aortic valve. Pulmonic Valve Pulmonic valve not well visualized. Mitral Valve Mild mitral valve regurgitation on limited Doppler interrogation. Tricuspid Valve Mild tricuspid regurgitation on limited Doppler interrogation. Pericardium/Pleural Moderate pericardial effusion WITHOUT evidence of tamponade. Inferior Vena Cava Normal IVC size and inspiratory collapse. Aorta Normal aortic root. Mitral Valve Name Value Normal MV Doppler MV PHT 87 ms MV Diastolic Function MV E Peak Velocity 0.39 m/s <=0.50 MV A Peak Velocity 0.81 m/s MV E/A 0.49 <=0.80 MV Decel Time 299 ms Tricuspid Valve Name Value Normal Estimated PAP/RSVP RA Pressure 3 mmHg <=5 TV Diastolic Function TV E Peak Velocity 0.26 m/s TV A Peak Velocity 0.27 m/s TV E/A 0.95 0.80-2.00 TV Decel Time 225 ms >=120 Aorta Name Value Normal Ascending Aorta Sinus of Valsalva Diameter 2.7 cm 2.7-3.3 Sinus of Valsalva Index 1.96 cm/m2 1.60-2.00 Venous Name Value Normal IVC/SVC IVC Diameter (Insp 2D) 0.5 cm IVC Diameter (Exp 2D) 1.0 cm <=2.1 IVC Diameter Percent Change (2D) 46 % >=50 Ventricles Name Value Normal LV Dimensions 2D/MM IVS Diastolic Thickness (2D) 0.8 cm 0.6-0.9 LVID Diastole (2D) 3.7 cm 3.3-5.1 LVIW Diastolic Thickness (2D) 0.7 cm 0.6-0.9 LVID Systole (2D) 2.2 cm 2.2-3.5 LV Mass (2D Cubed) 80.53 g 67.00-162.00 LV Mass Index (2D Cubed) 0.01 g/cm2 0.00-0.01 Relative Wall Thickness (2D) 0.40 LV Fractional Shortening/Ejection Fraction 2D/MM LV Fractional Shortening (2D) 40 % 27-45 RV Dimensions 2D/MM RV Basal Diastolic Dimension 2.3 cm 2.5-4.1 RV Diastolic Area (4C) 10.2 cm2 8.0-20.0 RV Systolic Area (4C) 6.6 cm2 3.0-11.0 RV Fractional Shortening 2D RV FAC (4C) 35 % >=35 Atria Name Value Normal LA Dimensions LA Area (4C) 7.8 cm2 LA Length (4C) 3.6 cm LA Area (2C) 8.0 cm2 LA Length (2C) 3.4 cm LA Volume (4C A-L) 14.23 ml LA Volume (2C A-L) 15.85 ml LA Volume (BP A-L) 15 ml 22-52 LA Volume Index (BP A-L) 11.23 ml/m2 <=34.00 RA Dimensions RA Area (4C) 10.6 cm2 <=18.0 Final Signed by:MD Olguin Brandon R Signed (Electronic Signature):12/07/2024 4:45 p Echo TransTHORacic TTE Limited w/ Cont Report Signatures Amended by Nancy Huerta on 12/10/2024 08:[address] Ren Olguin MD on 12/07/2024 06:[address] Ren Olguin MD on 12/07/2024 06:09 PM [place] Act 112: No-No further action needed Summary 1. Failed 2D images were enhanced with Definity per lab protocol. 2. Normal left ventricular size with mildly reduced systolic function. 3. Estimated ejection fraction 40-45%. 4. Poor endocardial visualization. Hypokinesis appears to be diffuse. 5. No left ventricular hypertrophy. 6. Moderate pericardial effusion WITHOUT evidence of tamponade. Left pleural effusion is also seen. 7. Right ventricle is not well visualized. Limited views suggest normal RV size with low normal systolic function by fractional area change. 8. No significant valvular abnormalities by 2D imaging. Overall Doppler interrogation was limited on this study otherwise. 9. Since prior study of 11/30/24, LV function is somewhat more vigorous. Patient Info Name: NANCY FORBES Age: 78 years : 1945 Gender: Female Ht: 152 cm Wt: 45 kg BSA: 1.38 m2 HR: 56 bpm BP: 131 / 62 mmHg Heart Rhythm: Sinus Bradycardia Technical Quality: Technically difficult study Exam Date: 12/07/2024 4:45 PM Exam Location: [address] [place] [address] Patient Status: Inpatient Staff Ordering Physician: Kamilah Ann Service Unit Operator [employer]: Diana Armando Attending Physician: Mary Jain Study Info [facility] [id number] - [id number] - [id number] - [id number] - Indications I429 - Cardiomyopathy, unspecified Procedure(s) * A limited two-dimensional transthoracic echocardiogram was performed. * Color Doppler was performed. * Limited spectral Doppler was performed. * Failed 2D images were enhanced with Definity per lab protocol. * Service Unit Operator [employer], Diana Armando, provided education about ultrasound enhancing agent to the patient. Exam Type: Cardiac Basic Left Ventricle Normal left ventricular size with mildly reduced systolic function. Estimated ejection fraction 40-45%. Poor endocardial visualization. Hypokinesis appears to be diffuse. No left ventricular hypertrophy. Right Ventricle Right ventricle is not well visualized. Limited views suggest normal RV size with low normal systolic function by fractional area change. Left Atrium Normal left atrial size. Right Atrium Normal right atrial size. Aortic Valve Trileaflet aortic valve. Pulmonic Valve Pulmonic valve not well visualized. Mitral Valve Mild mitral valve regurgitation on limited Doppler interrogation. Tricuspid Valve Mild tricuspid regurgitation on limited Doppler interrogation. Pericardium/Pleural Moderate pericardial effusion WITHOUT evidence of tamponade. Left pleural effusion is also seen. Inferior Vena Cava Normal IVC size and inspiratory collapse. Aorta Normal aortic root. Mitral Valve Name Value Normal MV Doppler MV PHT 87 ms MV Diastolic Function MV E Peak Velocity 0.39 m/s <=0.50 MV A Peak Velocity 0.81 m/s MV E/A 0.49 <=0.80 MV Decel Time 299 ms Tricuspid Valve Name Value Normal Estimated PAP/RSVP RA Pressure 3 mmHg <=5 TV Diastolic Function TV E Peak Velocity 0.26 m/s TV A Peak Velocity 0.27 m/s TV E/A 0.95 0.80-2.00 TV Decel Time 225 ms >=120 Aorta Name Value Normal Ascending Aorta Sinus of Valsalva Diameter 2.7 cm 2.7-3.3 Sinus of Valsalva Index 1.96 cm/m2 1.60-2.00 Venous Name Value Normal IVC/SVC IVC Diameter (Insp 2D) 0.5 cm IVC Diameter (Exp 2D) 1.0 cm <=2.1 IVC Diameter Percent Change (2D) 46 % >=50 Ventricles Name Value Normal LV Dimensions 2D/MM IVS Diastolic Thickness (2D) 0.8 cm 0.6-0.9 LVID Diastole (2D) 3.7 cm 3.3-5.1 LVIW Diastolic Thickness (2D) 0.7 cm 0.6-0.9 LVID Systole (2D) 2.2 cm 2.2-3.5 LV Mass (2D Cubed) 80.53 g 67.00-162.00 LV Mass Index (2D Cubed) 0.01 g/cm2 0.00-0.01 Relative Wall Thickness (2D) 0.40 LV Fractional Shortening/Ejection Fraction 2D/MM LV Fractional Shortening (2D) 40 % 27-45 RV Dimensions 2D/MM RV Basal Diastolic Dimension 2.3 cm 2.5-4.1 RV Diastolic Area (4C) 10.2 cm2 8.0-20.0 RV Systolic Area (4C) 6.6 cm2 3.0-11.0 RV Fractional Shortening 2D RV FAC (4C) 35 % >=35 Atria Name Value Normal LA Dimensions LA Area (4C) 7.8 cm2 LA Length (4C) 3.6 cm LA Area (2C) 8.0 cm2 LA Length (2C) 3.4 cm LA Volume (4C A-L) 14.23 ml LA Volume (2C A-L) 15.85 ml LA Volume (BP A-L) 15 ml 22-52 LA Volume Index (BP A-L) 11.23 ml/m2 <=34.00 RA Dimensions RA Area (4C) 10.6 cm2 <=18.0 Final Signed by:MD Sharif, Ren Ibarra Signed (Electronic Signature):12/07/2024 4:45 p * Exam Date Time Procedure Performing Provider Status 12/07/24 12:[address] Biopsy Bone Superficial Helen Encarnacion; Final Notes: (PS CT Biopsy Bone Superficial) Reason For Exam: malignancy work up PS CT Biopsy Bone Superficial EXAMINATION: PS: CT-GUIDED BIOPSY OF RIGHT ILIAC SCLEROTIC BONE LESION CLINICAL HISTORY/INDICATION: Metastatic malignancy of unknown etiology. Thoracentesis cytology inconclusive. malignancy work up COMPARISON: CT abdomen pelvis 11/27/2024 SEDATION: The risks and benefits of moderate sedation were discussed with the patient and the patient's family as part of the procedural informed consent process. Physician supervised intra-procedure moderate sedation was performed for the time as stated below using a trained independent observer who monitored the patient's level of sedation and physiologic status throughout the procedure. Pre-procedure and post-procedure sedation assessments were performed in accordance with institutional sedation policy and are documented separately in the medical record. INTRA-PROCEDURAL MEDICATIONS: No sedation was needed/given TECHNIQUE: Attending radiologist: Dr. Torres Physician dental assistant teacher: Eliazar Wright INFORMED DISCUSSION: The procedure was discussed with the patient and the patient's daughter and son in detail followed by a discussion of reasonable procedure related risks, benefits, and alternatives to the procedure and all of the patient's questions were answered. Risk of bleeding, infection, damage to adjacent structures, nondiagnostic tissue sampling necessitating repeat biopsy and pain were discussed. The patient was placed in the prone position on the scanner table. A suitable site for entry was selected following Limited CT evaluation of the pelvis and marked. UNIVERSAL PROTOCOL: The patient's identity and site of biopsy were confirmed during a time out. PROCEDURE: The skin was prepped and draped in the usual sterile fashion. Local anesthesia was achieved with 1%lidocaine. A small dermatotomy was performed. Under CT guidance, a 10-gauge BD Trek Bone Lesion Biopsy System introducer needle was advanced to the right posterior iliac bone. Then, 3 core biopsies were obtained with a 12 gauge BD Trek Bone Lesion Biopsy System. Hemostasis was obtained and a sterile dressing was applied. The patient tolerated the procedure well. COMPLICATIONS: Related to the procedure: None Related to sedation: None Required intervention: N/A Preliminary pathology read: N/A Dose: Total Reported Dose Length Product (DLP) = 342.91 mGy.cm IMPRESSION: CT-guided right iliac sclerotic lesion biopsy [place] PA-C performed the procedure. Dr. Torres was physically present and supervised the procedure. Supervision Statement:I provided direct supervision and was physically present on-site and immediately available and interruptible to provide assistance and direction throughout the performance of this procedure." Workstation ID: [id number] Final Dictated by:SweWOLFGANG valentin Cameron Dictated DT/TM:12/07/2024 2:23 Resident:WOLFGANG Jules Cameron Signed by:MD Melissa, Álvaro Villatoro Signed (Electronic Signature):12/07/2024 2:22 p * Exam Date Time Procedure Performing Provider Status 12/01/24 1:57 PM VL Lower Ext Venous Duplex Bilateral Cyrus wilson Carl; Final Notes: (VL Lower Ext Venous Duplex Bilateral) Reason For Exam: segmental PE, ? DVT VL Lower Ext Venous Duplex Bilateral [facility] FINAL REPORT Name: NANCY FORBES : 1945 Visit: [id number] Date: 01 Dec 2024 TYPE OF TEST: Peripheral Venous Testing REASON FOR TEST segmental PE? DVT INTERPRETATION/FINDINGS Venous duplex exam of the bilateral lower extremities reveals: 1. No evidence of deep or superficial venous thrombosis identified in the bilateral common femoral, proximal great saphenous, femoral, deep femoral, popliteal, gastrocnemius, posterior tibial, and peroneal veins. *No prior exam available for comparison. IMPRESSION/COMMENTS I have personally reviewed the data relevant to the interpretation of this study. TECHNOLOGIST: ANDRA Draper, RVT PHYSICIAN: Candi Berman MD Signed: 12/01/2024 02:04 PM Final Dictated by:MD Berman Kathleen Dictated DT/TM:12/01/2024 2:04 Signed by:MD Berman Kathleen Signed (Electronic Signature):12/01/2024 2:04 p Transcribed by:KM * Exam Date Time Procedure Performing Provider Status 11/30/24 2:[address] Thorax w/ Contrast Marek Mena; Marc savage Notes: (CT Thorax w/ Contrast) Reason For Exam: interval changes pleural effusion CT Thorax w/ Contrast EXAMINATION: CT CHEST WITH CONTRAST CLINICAL HISTORY: interval changes pleural effusion COMPARISON: CT chest 11/27/2024 TECHNIQUE: Helical CT scan through the chest after intravenous contrast administration. Data reconstructed as axial, sagittal and coronal slices. CONTRAST: Contrast Type (IV): Omnipaque 350 Contrast Volume (IV) in ml: 75.00 DOSE: Total Reported Dose Length Product (DLP) = 158.72 mGy.cm FINDINGS: Motion artifact Pleura and Lungs: Decreased large right pleural effusion and increased small left pleural effusion with adjacent atelectasis. Right middle lobe collapse, similar to prior. Dependent atelectasis adjacent pleural effusions. Right apical bandlike and subpleural anterior fibrosis suggestive of sequela of prior radiation therapy. Improved right lung aeration. Mild smooth septal thickening and ground glass opacities in the portions of the right lower lobe collapsed on the prior CT. Mild centrilobularemphysema. No pneumothorax. Central airways: Narrowing from mass effect of the segmental and subsegmental right-sided bronchi, improved from prior Lymph nodes: No definitive lymphadenopathy Thyroid and Mediastinum: Visualized thyroid gland unremarkable Heart and Great vessels: Normal heart size. No pericardial effusion. Aortic atherosclerosis. Acute pulmonary emboli in the left lower lobe anterior and lateral segmental arteries. No findings of right heart strain. Upper abdomen: Partially visualized enteric tube. Stable size of left lobe 5 mm hypodense lesion. Punctate calcifications right hepatic lobe. 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 Osseous fragment adjacent the anterior aspect of the right glenoid correlating with recent shoulder radiograph. Multilevel degenerative changes of the spine. IMPRESSION: 1. Acute left lower lobe anterior and lateral segmental pulmonary emboli. 2. Decreased large right pleural effusion and increased small left pleural effusion. 3. Improved right lung aeration with findings in the portion of the right lower lobe which was previously collapsed most suggestive of mild edema. 4. Redemonstrated findings of blastic osseous metastatic disease. No lymphadenopathy. No pulmonary nodule/mass in the aerated portions of the lungs. [place] Act 112: This study does not meet the requirements of [place] Act 112. Dr. Shantal Ward is the dictating resident. Finalized reports status indicates that the attending has reviewed the images and report, and agrees with the interpretation. Preliminary report status should be regarded as NOT interpreted by the attending radiologist. Workstation ID: [id number] Final Dictated by:MD Ward Monica Dictated DT/TM:11/30/2024 4:46 Resident:MD Ward Monica Signed by:DO Adkins Matthew D Signed (Electronic Signature):11/30/2024 4:45 p * Exam Date Time Procedure Performing Provider Status 11/30/24 11:51 AM Echo TransTHORacic TTE Complete w/ Co nt Mary Abbasi; Final Notes: (Echo TransTHORacic TTE Complete w/ Cont) Reason For Exam: HTN, R pleural effusion and BLE edema Echo TransTHORacic TTE Complete w/ Cont Report Signatures Finalized by Dr. Duong Acevedo DO on 11/30/2024 12:40 PM [place] Act 112: No-No further action needed Summary 1. Failed 2D images were enhanced with Definity per lab protocol. 2. Normal left ventricular size with moderately reduced systolic function. 3. EF as calculated by Biplane Simpsons method 35 %. 4. Distal anterior, anteroseptal, inferior, inferoseptal, and apical hypokinesis. 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 5. No left ventricular hypertrophy. 6. Normal diastolic function. 7. Normal right ventricular size and function. 8. Moderate pericardial effusion WITHOUT evidence of tamponade. 9. No significant valvular abnormalities. 10. Estimated pulmonary arterial systolic pressure is 29 mmHg. 11. No prior studies at [facility] for comparison. Patient Info Name: NANCY FORBES Age: 78 years : 1945 Gender: Female Ht: 166 cm Wt: 44 kg BSA: 1.41 m2 HR: 70 bpm BP: 114 / 64 mmHg Heart Rhythm: Sinus Rhythm Technical Quality: Fair Exam Date: 11/30/2024 11:06 AM Exam Location: [facility] Patient Status: Inpatient Staff Ordering Physician: Moira Bangura Service Unit Operator Oil Well: Mary Abbasi RDCS Attending Physician: Rj Choe Study Info CPT J3490 - 09676 - Indications R609 - Edema, unspecified I10 - Hypertension Procedure(s) * A complete two-dimensional, color flow and Doppler transthoracic echocardiogram was performed. * Failed 2D images were enhanced with Definity per lab protocol. * Service Unit Operator Oil Well, Mary Abbasi RDCS, provided education about ultrasound enhancing agent to the patient. Exam Type: Cardiac Basic Left Ventricle Normal left ventricular size with moderately reduced systolic function. EF as calculated by Biplane Simpsons method 35 %. Distal anterior, anteroseptal, inferior, inferoseptal, and apical hypokinesis. 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 No left ventricular hypertrophy. Normal diastolic function. Right Ventricle Normal right ventricular size and function. Aortic Valve Sclerotic trileaflet aortic valve without significant stenosis or regurgitation. Pulmonic Valve Unremarkable pulmonic valve. Mitral Valve Unremarkable mitral valve. Tricuspid Valve Unremarkable tricuspid valve. Estimated pulmonary arterial systolic pressure is 29 mmHg. Pericardium/Pleural Moderate left pleural effusion. Moderate pericardial effusion WITHOUT evidence of tamponade. Inferior Vena Cava Normal IVC size and inspiratory collapse. Aorta Normal aortic root. Left Ventricular Outflow Tract Name Value Normal LVOT 2D LVOT Diameter 1.8 cm LVOT Doppler LVOT Peak Velocity 1.02 m/s LVOT Peak Gradient 4 mmHg LVOT Mean Gradient 2 mmHg LVOT VTI 19.02 cm LVOT VTI/AV VTI Ratio 0.78 LVOT Stroke Volume 50.78 ml LVOT Stroke Volume Index 0.04 l/m2 LVOT Cardiac Output 3.55 l/min LVOT Cardiac Index 2.52 L/min/m2 Pulmonic Valve Name Value Normal RVOT Doppler RVOT Peak Velocity 0.83 m/s RVOT Peak Gradient 3 mmHg PV Doppler PV Peak Gradient 3 mmHg Mitral Valve Name Value Normal MV Doppler MV PHT 46 ms MV Diastolic Function MV E Peak Velocity 0.57 m/s <=0.50 MV A Peak Velocity 0.83 m/s MV E/A 0.68 <=0.80 MV Decel Time 158 ms MV Annular TDI MV Septal s' Velocity 9.39 cm/s MV Septal e' Velocity 5.39 cm/s >=7.00 MV Septal a' Velocity 15.75 cm/s MV E/e' (Septal) 10.5 <=8.0 MV Lateral s' Velocity 14.09 cm/s MV Lateral e' Velocity 7.60 cm/s >=10.00 MV Lateral a' Velocity 14.51 cm/s MV E/e' (Lateral) 7.47 <=8.00 MV e' Average 6.49 MV E/e' (Average) 9.00 <=14.00 Tricuspid Valve Name Value Normal TV Regurgitation Doppler TR Peak Velocity 2.55 m/s <=2.80 TR Peak Gradient 26 mmHg Estimated PAP/RSVP RA Pressure 3 mmHg <=5 PA Systolic Pressure 29 mmHg <40 TV Diastolic Function TV E Peak Velocity 0.51 m/s TV A Peak Velocity 0.37 m/s TV E/A 1.38 0.80-2.00 TV Decel Time 215 ms >=120 TV Annular TDI TV Lateral Taylor s' Velocity 14.0 cm/s 9.5-18.7 TV Lateral Taylor e' Velocity 7.0 cm/s <7.8 TV Lateral Taylor a' Velocity 14.23 cm/s TV E/e' 7.20 2.00-6.00 TV A/a' 2.58 Aorta Name Value Normal Ascending Aorta Sinus of Valsalva Diameter 2.8 cm 2.7-3.3 Sinus of Valsalva Index 1.95 cm/m2 1.60-2.00 Prox Asc Ao Diameter 2.9 cm 2.3-3.1 Prox Asc Ao Diameter Index 2.06 cm/m2 1.30-1.90 Venous Name Value Normal IVC/SVC IVC Diameter (Insp 2D) 0.1 cm IVC Diameter (Exp 2D) 1.5 cm <=2.1 IVC Diameter Percent Change (2D) 94 % >=50 Aortic Valve Name Value Normal AV Doppler AV Peak Velocity 1.32 m/s <2.00 AV Peak Gradient 7 mmHg AV Mean Gradient 3 mmHg <20 AV VTI 24.47 cm AV Area (Cont Eq VTI) 2.1 cm2 >=2.0 AV Area Index (Cont Eq VTI) 1.47 cm2/m2 AV Area (Cont Eq Rolly) 2.1 cm2 AV Area Index (Cont Eq Rolly) 1.46 cm2/m2 AV V1/V2 Ratio 0.77 AV Regurgitation 2D LVOT Area 2.7 cm2 Ventricles Name Value Normal LV Dimensions 2D/MM IVS Diastolic Thickness (2D) 0.9 cm 0.6-0.9 LVID Diastole (2D) 4.1 cm 3.3-5.1 LVIW Diastolic Thickness (2D) 0.8 cm 0.6-0.9 LVID Systole (2D) 2.2 cm 2.2-3.5 LVOT Diameter 1.8 cm LV Mass (2D Cubed) 107.18 g 67.00-162.00 LV Mass Index (2D Cubed) 0.01 g/cm2 0.00-0.01 Relative Wall Thickness (2D) 0.40 LV Fractional Shortening/Ejection Fraction 2D/MM LV Fractional Shortening (2D) 46 % 27-45 LV Diastolic Volume (4C MOD) 63 ml LV Diastolic Volume (2C MOD) 58 ml LV Diastolic Volume (BP MOD) 60 ml 46-106 LV Diastolic Volume Index (BP MOD) 42.73 ml/m2 29.00-61.00 LV Systolic Volume (BP MOD) 39 ml 14-42 LV Systolic Volume Index (BP MOD) 27.81 ml/m2 8.00-24.00 LV EF (BP MOD) 35 % 58-69 LV SV (BP MOD) 21.03 ml LV End Diastolic Volume (BP A-L) 64.75 ml LV End Systolic Volume (BP A-L) 40.43 ml LV EF (BP A-L) 38 % RV Dimensions 2D/MM RV Basal Diastolic Dimension 3.0 cm 2.5-4.1 RV Mid-Cavity Diastolic Dimension 2.1 cm 1.9-3.5 TAPSE 1.5 cm >=1.7 Atria Name Value Normal LA Dimensions LA Area (4C) 10.6 cm2 LA Length (4C) 3.8 cm LA Area (2C) 8.8 cm2 LA Length (2C) 3.5 cm LA Volume (4C A-L) 25.29 ml LA Volume (2C A-L) 18.65 ml LA Volume (BP A-L) 23 ml 22-52 LA Volume Index (BP A-L) 15.97 ml/m2 <=34.00 RA Dimensions RA Area (4C) 9.4 cm2 <=18.0 Final Signed by:DO Acevedo Vincent A Signed (Electronic Signature):11/30/2024 11:06 * Exam Date Time Procedure Performing Provider Status 11/29/24 11:00 AM XR Chest 1 View Reshma Mcnair; Final Notes: (XR Chest 1 View) Reason For Exam: post thoracentesis XR Chest 1 View EXAMINATION: XR Chest 1 View CLINICAL HISTORY: post thoracentesis COMPARISON: Chest radiographs 11/28/2024 CT chest 11/27/2024 FINDINGS: Single upright AP radiograph of the chest. Enteric tube courses into the stomach, tip not visualized. Partially obscured cardiopericardial silhouette. Partially obscured pulmonary vasculature. Atherosclerotic calcification of the aortic arch. Small right pleural effusion, markedly decreased status post thoracentesis. Improved right lung collapse. Trace left pleural effusion. No pneumothorax. Osseous sclerotic lesions better seen on prior CT. IMPRESSION: Small right pleural effusion, markedly decreased. Improvement of right lung collapse. Dr. Ryan Harvey MD, MS is the dictating resident. Finalized reports status indicates that the attending has reviewed the images and report, and agrees with the interpretation. Preliminary report status should be regarded as NOT interpreted by the attending radiologist. Workstation ID: [id number] Final Dictated by:MD Harvey Daniel Dictated DT/TM:11/29/2024 1:29 Resident:MD Harvey Daniel Signed by:DO Baird Rushi Signed (Electronic Signature):11/29/2024 1:27 p * Exam Date Time Procedure Performing Provider Status 11/29/24 11:00 AM XR Shoulder Complete 2+ Views Right W Reshma holder; Final Notes: (XR Shoulder Complete 2+ Views Right) Reason For Exam: C/f for shoulder fx s/p fall XR Shoulder Complete 2+ Views Right EXAMINATION: XR Shoulder Complete 2+ Views Right CLINICAL HISTORY: C/f for shoulder fx s/p fall COMPARISON: Chest radiographs 11/29/2024 FINDINGS: AP, Grashey, and axial views of the right shoulder. Partially visualized feeding tube. Lucency through the anterior aspect of the glenoid seen on the axillary view. Decreased acromiohumeral interval and superior migration of the humeral head. Narrowed glenohumeral joint space. Normal color clavicular joint space. Please see separately dictated same day 11/29/2024 chest radiograph report. IMPRESSION: 1. Minimally displaced fracture through the anterior aspect of the glenoid. 2. Right rotator cuff arthropathy. Dr. Ryan Harvey MD, MS is the dictating resident. Finalized reports status indicates that the attending has reviewed the images and report, and agrees with the interpretation. Preliminary report status should be regarded as NOT interpreted by the attending radiologist. Workstation ID: [id number] Final Dictated by:MD Harvey Daniel Dictated DT/TM:11/29/2024 2:09 Resident:MD Harvey Daniel Signed by:DO Baird Rushi Signed (Electronic Signature):11/29/2024 2:08 p * Exam Date Time Procedure Performing Provider Status 11/29/24 2:31 AM MRI Brain w/ + w/o Contrast Trell Hoopersa L; Final Notes: (MRI Brain w/ + w/o Contrast) Reason For Exam: Eval IPH, possible hemorrhagic met MRI Brain w/ + w/o Contrast EXAMINATION: MRI Brain w/ + w/o Contrast, MRA Brain/Head w/o Contrast CLINICAL HISTORY: Eval IPH, possible hemorrhagic met COMPARISON: None available TECHNIQUE: MRI Brain w/ + w/o Contrast, MRA Brain/Head w/o Contrast FINDINGS: Scan is significantly limited due to motion artifacts. Cerebral parenchyma: Left occipital lobe hematoma measuring 3.3 x 3.0 cm, not significantly changedcompared to head CT from 11/27/2024. Mild surrounding vasogenic edema is stable. The central area ofthe parenchymal hematoma demonstrates T1 hyperintense signal in T2 hyperintense signal. Difficult to appreciate due to underlying abnormal enhancement. Otherwise no other abnormal enhancing lesions. There is no restricted diffusion to suggest acute or early subacute infarct. Extra-axial spaces: Left parieto-occipital sulci subarachnoid hemorrhage. Ventricles: Mild mass effect on the occipital horn of the left lateral ventricle Mass effect: No midline shift Posterior Fossa: cerebellar tonsils are normal in position and configuration Vascular system: major intracranial flow voids are present. Calvarium: Normal Sella: Unremarkable Visualized paranasal sinuses/mastoids: clear MR ANGIOGRAPHY HEAD: Severely limited due to motion artifact Internal carotid artery: No flow-limiting stenosis ANDREINA: Unremarkable ACOM: No aneurysm MCA: Limited evaluation due to motion artifacts No flow-limiting stenosis TURNER MACHINE OPERATOR: Not clearly appreciated bilaterally, would be artifactual PCOM: No aneurysm Vertebrobasilar arteries: Unremarkable IMPRESSION: 1. Left occipital parenchymal hematoma with surrounding vasogenic edema, stable from 11/27/2024. Difficult to appreciate for underlying enhancement due to acute blood products. Recommended further evaluation within 6 weeks with resolution of parenchymal hematoma. 2. Otherwise no other intracranial enhancing lesions. 3. Stable left parieto-occipital convexity subarachnoid hemorrhages. 4. MRA head is limited due to motion artifacts. plumber's helper are not appreciated on current scan, could be artifactual. Workstation ID: [id number] Final Dictated by:MD Cummings Einat Dictated DT/TM:11/29/2024 9:58 Signed by:MD Cummings Einat Signed (Electronic Signature):11/29/2024 9:56 a * Exam Date Time Procedure Performing Provider Status 11/29/24 2:31 AM MRA Brain/Head w/o Contrast Trell Hooper; Final Notes: (MRA Brain/Head w/o Contrast) Reason For Exam: eval left MCA w beaded appearance, possible vasculitis vs stenosis, no clinical symptoms MRA Brain/Head w/o Contrast EXAMINATION: MRI Brain w/ + w/o Contrast, MRA Brain/Head w/o Contrast CLINICAL HISTORY: Eval IPH, possible hemorrhagic met COMPARISON: None available TECHNIQUE: MRI Brain w/ + w/o Contrast, MRA Brain/Head w/o Contrast FINDINGS: Scan is significantly limited due to motion artifacts. Cerebral parenchyma: Left occipital lobe hematoma measuring 3.3 x 3.0 cm, not significantly changedcompared to head CT from 11/27/2024. Mild surrounding vasogenic edema is stable. The central area ofthe parenchymal hematoma demonstrates T1 hyperintense signal in T2 hyperintense signal. Difficult to appreciate due to underlying abnormal enhancement. Otherwise no other abnormal enhancing lesions. There is no restricted diffusion to suggest acute or early subacute infarct. Extra-axial spaces: Left parieto-occipital sulci subarachnoid hemorrhage. Ventricles: Mild mass effect on the occipital horn of the left lateral ventricle Mass effect: No midline shift Posterior Fossa: cerebellar tonsils are normal in position and configuration Vascular system: major intracranial flow voids are present. Calvarium: Normal Sella: Unremarkable Visualized paranasal sinuses/mastoids: clear MR ANGIOGRAPHY HEAD: Severely limited due to motion artifact Internal carotid artery: No flow-limiting stenosis ANDREINA: Unremarkable ACOM: No aneurysm MCA: Limited evaluation due to motion artifacts No flow-limiting stenosis TURNER MACHINE OPERATOR: Not clearly appreciated bilaterally, would be artifactual PCOM: No aneurysm Vertebrobasilar arteries: Unremarkable IMPRESSION: 1. Left occipital parenchymal hematoma with surrounding vasogenic edema, stable from 11/27/2024. Difficult to appreciate for underlying enhancement due to acute blood products. Recommended further evaluation within 6 weeks with resolution of parenchymal hematoma. 2. Otherwise no other intracranial enhancing lesions. 3. Stable left parieto-occipital convexity subarachnoid hemorrhages. 4. MRA head is limited due to motion artifacts. plumber's helper are not appreciated on current scan, could be artifactual. Workstation ID: [id number] Final Dictated by:MD Cummings Einat Dictated DT/TM:11/29/2024 9:58 Signed by:MD Cummings Einat Signed (Electronic Signature):11/29/2024 9:56 a * Exam Date Time Procedure Performing Provider Status 11/28/24 7:55 PM XR Abdomen 1 View Lilibeth Irby; Marc savage Notes: (XR Abdomen 1 View) Reason For Exam: NG/NJ Fit/Adjust Nonvascular Cath XR Abdomen 1 View EXAMINATION: XR Abdomen 1 View CLINICAL HISTORY: NG/NJ Fit/Adjust Nonvascular Cath COMPARISON: Abdomen, pelvis CT 11/27/2024 FINDINGS: AP view of the abdomen. Feeding tube tip is in the stomach body. Nonobstructed bowel gas pattern. Relative paucity of bowel gas in the central abdomen in keeping with fluid-filled versus decompressedloops of bowel. Moderate right and small left effusions. IMPRESSION: 1. Feeding tube tip is in the stomach body. 2. Moderate right and small left effusions. Workstation ID: [id number] Final Dictated by:MD Morales Jeffrey S Dictated DT/TM:11/28/2024 8:19 Signed by:MD Morales Jeffrey S Signed (Electronic Signature):11/28/2024 8:18 p Anatomic Pathology Reports * Report Case Number Specimen Responsible Pathologist Report Status Non-Pamphlet Distributor Cytology Report [id number] MD Ta Christopher; Final * Event Display: NG Interp Adequacy 1. Pleural fluid: Satisfactory for evaluation. MD Ta Christopher:VERIFY; Authored Date: * Event Display: NG Disclaimer [facility] performs the technical component for work verified at [facility]([address] [place] [address]; CLIA [id number]), [facility] ([address] [facility], [place] [address]; CLIA [id number]), and [facility] ([address] [place] [address]; CLIA [id number]). [facility] performs the technical component for work verified at [facility] ([address], [address], [place] [address]; CLIA [id number]) and [facility] ([address] [place] [address], [place] [address]; CLIA [id number]). All laboratories are under the Clinical Laboratory Improvement Amendments of 1988 (CLIA-88) as qualified to perform high complexity clinical laboratory testing. For immunohistochemical and histochemical stains on cell blocks or other liquid based preparations performed at [facility] and [facility], focused validation may have been done that does not necessary apply to all specimen types. Results should be interpreted within these limitations. MD Ta Christopher:VERIFY; Authored Date: * Event Display: NG Gross Approximately 1600 cc of lindy colored clear fluid. Unable to make a cell block. MD Ta Christopher:VERIFY; Authored Date: * Event Display: NG Clinical History 78 yo F with bilateral pleural effusion lindy colored fluid MD Ta Christopher:VERIFY; Authored Date: * Event Display: NG Interp Dx 1. Pleural fluid: Atypical cells present, suspicious for malignancy. Screened by: SFF, LV,CJ 11/30/2024 Completed by: Dami Ta MD (Electronically signed by) 12/01/2024 11:57 EST Performing Location: [facility] MD Ta Christopher:VERIFY; Authored Date: [id number] * Report Case Number Specimen Responsible Pathologist Report Status Urine Immunofixation Report [id number] MD Aida, Renaldo Luke; Final * Event Display: CP UI Dx _Oligoclonal immunoglobulin light chain banding pattern seen. This is a benign finding seen in patients with an active immune response. Can't entirely exclude a monoclonal immunoglobulin. Recommend serum protein electrophoresis, serum immunofixation, serum free light quantitation and repeat urine immunofixation studies when patient is in her baseline state and > 4-6 months from now if clinicalsuspicion for myeloma persists. Renaldo Parra MD (Electronically signed by) Verified: 12/01/2024 09:09 EST Performing Location: [facility] MD Parra Michael H:VERIFY; Authored Date: [id number] * Report Case Number Specimen Responsible Pathologist Report Status Serum Protein Electrophoresis Report [id number] MD Parra Michael H; Fi nal * Event Display: CP SE Dx _No monoclonal immunoglobulins detected. Renaldo Parra MD (Electronically signed by) Verified: 12/01/2024 09:26 EST Performing Location: [facility] MD Parra Michael H:VERIFY; Authored Date: [id number] * Report Case Number Specimen Responsible Pathologist Report Status Peripheral Blood Smear Report [id number] DO Park Melissa R; Final * Event Display: CP PB Part type Peripheral blood smear DO Park Melissa R:VERIFY; Authored Date: [id number] * Event Display: CP PB Dx CBC and peripheral blood smear reviewed at provider request demonstrate leukocytosis with absolute neutrophilia, lymphopenia, and monocytosis, as well as mild thrombocytosis. Red blood cells demonstrate minimal anisopoikilocytosis with no increase in schistocytes, spherocytes, nucleated red blood cells, or rouleaux. Neutrophils demonstrate unremarkable nuclear segmentation and reactive changes in the cytoplasm including toxic granulation and vacuoles. Monocytes are unremarkable. Lymphocytes are probably small to medium in size and mature, occasional reactive forms seen. Platelets are small to medium in size with normal cytoplasmic granularity. There is no increase in platelet clumping or giant platelets seen. The findings are likely reactive to the patient's recent surgery. Cannot exclude infection. Misty Park DO (Electronically signed by) Verified: 11/30/2024 11:30 EST Performing Location: [facility] DO Xavier, Misty Ibarra:VERIFY; Authored Date: [id number] Vital Signs Most recent to oldest [Reference Range]: 1 2 3 Height 152 cm (12/01/24 12:00 PM) Patient Weight 48.5 kg (12/09/24 4:45 AM) 49.7 kg (12/08/24 6:29 AM) 45.1 kg (12/07/24 3:59 AM) Body Mass Index 19.17 kg/m2 (12/01/24 12:00 PM) Temperature [36.5-37.9 DegC] 36.2 DegC *LOW* (12/11/24 8:35 AM) 36.6 DegC (12/11/24 6:09 AM) 36.5 DegC (12/10/24 11:58 PM) Heart Rate 75 bpm (12/11/24 8:35 AM) 59 bpm (12/11/24 6:09 AM) 60 bpm (12/10/24 11:58 PM) Respiratory Rate 18 br/min (12/11/24 8:35 AM) 17 br/min (12/11/24 6:09 AM) 17 br/min (12/10/24 11:58 PM) Blood Pressure 133/62mmHg (12/11/24 8:35 AM) 139/78mmHg (12/11/24 6:09 AM) 143/73mmHg (12/10/24 11:58 PM) Mean Blood Pressure 76 mmHg (12/11/24 8:35 AM) 91 mmHg (12/10/24 11:58 PM) 91 mmHg (12/10/24 8:00 PM) Cuff Pulse Pressure 71 mmHg (12/11/24 8:35 AM) 61 mmHg (12/11/24 6:09 AM) 70 mmHg (12/10/24 11:58 PM) BP Location # 1 Left Arm (12/11/24 8:35 AM) Left Arm (12/11/24 6:09 AM) Left Arm (12/10/24 11:58 PM) Social History Social History Type Response Tobacco Current every day sm oker, Cigarettes 1 Smoking Status Smoker, current stat us unknown Sex Female Sex Representation Female (finding) 1Smokes 2-3 cigs per day. EKG study * Contributor_system, MUSE01: VERIFY, PERFORM Event Display: EKG Authored Date: [id number] Please click on link to see image. * Contributor_system, MUSE01: VERIFY, PERFORM Event Display: EKG Authored Date: [id number] Please click on link to see image. * Contributor_system, MUSE01: VERIFY, PERFORM Event Display: EKG Authored Date: Please click on link to see image. Radiology H&P * WOLFGANG Jules, North: PERFORM Event Display: Radiology H&P Authored Date: [id number] RADIOLOGY HISTORY AND PHYSICAL UPDATE - NO CHANGE Name: NANCY FORBES Patient Number: [id number] : 1945 Date of Service: 12/07/2024 Patient identity, procedure were identified by me. The History and Physical was reviewed. I have confirmed that the necessity for the procedure is still present. Level of Consciousness/Mental Status: Awake: _x Yes _ No Alert: _x Yes _ No Oriented: _x Yes _ No Mental Status: If No, Comment _ Airway: Indicate class, A high score (class 3 or 4) is a predictor of a more difficult intubation. The Mallampati Score _ Class 1: Complete visualization of the soft palate _x Class 2: Complete visualization of the uvula _ Class 3: Visualization of only the base of the uvula _ Class 4: Soft palate is not visible at all Lungs: _x Clear _ Rales _ Rhonchi _ Wheeze Heart: _x Normal Sinus Rhythm _ Murmur _ Arrhythmia _ List: _ [place] [employer] of Anesthesia Classification: _ I. Normal healthy patient _ II. Patient with mild systemic disease _x III. Severe systemic disease _ IV. Severe systemic disease which is threat to life _ V. Moribund, not expected to survive without procedure Sedation Plan: _x Moderate _ Reschedule with Anesthesia Electronic Signature on File Electronically Reviewed/Signed by: North Jules PA-C Author Signature Dt/Tm:12/07/2024 10:33 AM Department of Radiology Electronically Reviewed/Signed by: Zafar Ferris MD, FRCPC, MSC Cosigner Signature Dt/Tm: 12/09/2024 01:36 PM bus monitor and Neurosurgery [employer] [place] [address] CS * MD Aguila Ephraim W: MODIFY MD Aguila Ephraim W: MODIFY Event Display: Neurosurgery H&P Authored Date: [id number] NEUROSURGERY HISTORY AND PHYSICAL Name: NANCY FORBES Patient Number: [id number] : 1945 Date of Service: 11/27/2024 Surgical Hospital Day/Procedure: No procedures found Chief Complaint: _ 11cc L parietal lobe IPH w/ adjacent edema and scattered L frontal and parietal SAH. no midline shift History of Present Illness: _ 78F [facility] [place] [facility] and did not respond to staff call so well check was performed today and found patient naked and confused. Last known well unknown, last contact with patient was yesterday. Hx breast cancer s/p mastectomy. ASA 325 daily on med list, but nothing in history or clinic notes mentioning medical hx/reason for this med. Has POLST form requesting DNR/DNI but we are working on clarifying this with family. Arrived on cardene from OSH, but has since been turned off. Other Imaging: large right pleural effusion affection 2/3+ of lung with associated pleural consolidation (not in respiratory distress so likely chronic), concerning for neoplasm Review Of Systems: _ Negative except as in HPI Past Medical History: _ Problems: Osteoporosis Changing skin lesion Elevated LDL cholesterol level Cancer of right breast Migraines Arthritis Tobacco user Surgical History: _ Procedure History Procedure Procedure Date Comments Knee Surgery - 1963 [facility] L1-L2 T-score: -3.02. Femur neck left T-score:-2.83. Femur neck right T-score: -2.84. Femur tota left T- score: -3.25. Femur total right T-score: -3.16. Z-score: -1.4. Low BMD [facility] BI-RADS CATEGORY 1: NEGATIVE1. No evidence of malignancy [facility]-R[facility] CATEGORY 1: NEGATIVE1. No evidence of malignancy Mammogram 09/21/2019 - BILATERAL DIAGNOSTIC MAMMOGRAMIMPRESSION: BIRADS CAT 2: BENIGN. Expected postugical and post treatment changes in the right breast, and stable mammographic appearance of theleft breast, without mammographic evidence of malignancy bilaterally. Recommend annual bilateral mammography in 1 year and co nisder remaining a diagnostic patient. DXA scan T score 10/30/2018 Mammogram 09/19/2018 - IMPRESSION:Expected post surgical changes in the right breast from prior lumpectomy, w/out mammo evidence of malignancy in either breast. Mammogram 03/24/2018 - DIAGNOSTIC MAMMOGRAM W/ TOMOIMPRESSION: ACR BI-RADS CAT 2: BENIGNNo mammographic evidence of malignancy. Mammogram 09/24/2017 - New small 3mm calcifications at the anterior aspect of the lumpectomy bed, which are probably benign and likely represent fat necrosis. Recommend follow-up diagnostic tomosynthesis mammograms of the right breast in 6 months to confirm stability.No mammographic evidence of malignancy. Advise follow up in 1 year. Colonoscopy 07/04/2017 - await path results. Mammogram,bilateral digital diagnostic mammogram tomosynthesis with cad and tarteted right ultrasound 10/26/2016 Mammogram - screening 10/19/2015 - Impression: Expected postsurgical chnages in the eright breast from prior lumpectomy, with slightinterval decrase in size of 2.2 cm postsurgical seroma a the lumpecotmy bed. There is no mammographic evidence of malignancy in either breast. Recommend routine bilateral mammograms in one year, i would recommend the patient remain a diagnostic patient so that spot magnification views can be performed of the lumpectomy bed. The patient has been verbally notified of the results. right diagnostic mammogarm with US 04/06/2015 - Impression: New postsurgical/post treatment changes within the right breast, without mammographicevidence of maliganacy. A follow-up right mammogram with posssible ultrasound in 6 months is recommended to demostrate stability. The patient will be due for annual left mammography at that time. No suspicious abnormality or lymphadenopathy along the surgical scar in an area of pain within the right axilla. Clinical follow-up is recommended.The patient has been verbally notified of the results. Radiation 12/29/2014 US - Ultrasound 12/13/2014 - US R. Breast: US quidance for radiation. Imaging of the right 6 o'clock breast was performed withrepresentative images submitted. There is s seroma within the right 6 o'clock breast. Lymph node biopsy 10/20/2014 - Right axillary lymph node biopsy Ultrasound 10/20/2014 - Impression: A marco was made on the skin overlying the abnormal right axillary lymph node for surgical planning purposes. US - Ultrasound 10/18/2014 - US of R. Breast: Impression: The previously bx abnormal right axillary lymph node is again noted.A marco was made on the skin overlying the lymph node as requested by Dr. Best. Partial mastectomy with axillary lymphadenectomy 09/13/2014 Partial mastectomy with axillary lymphadenectomy 09/13/2014 PET scan 09/01/2014 Bone density (bone mineral content) study, 1 or more sites; dual photon absorptiometry, 1 or more sites 08/26/2014 Bone density scan 08/26/2014 - T-score -1.8 osteopenia Ultrasound guided biopsy 08/19/2014 - right breast Diagnostic Mammogram with US guided Biopsy Right Breast 08/18/2014 Breast biopsy and related procedures 08/18/2014 - right breast & lyphy node right axilla Mammogram 08/06/2014 - 1. Spiculated 2.1cm mass with associated pleomorphic calcifications in the Right breast at 6:00, at the site of the palpable lump. The highly suspicious and US guided core needle biopsy is recommended for further evaluation.2. Abnormal R axillary lymph node, for which US-guided core needle biopsyis recommended for further eval.3. No mammographic evidence of malignancy in the Left breast. 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 Exercise Details: Exercise type: Walking. Home/Environment Details: Lives with Spouse. Living situation: Home/Independent. Substance Abuse Risk Assessment: Denies Substance Abuse Tobacco Risk Assessment: Medium Risk; Details: Current every day smoker, Cigarettes; Comment(s): Smokes 2-3cigs per day. Allergies and Sensitivities: penicillins(Diarrhea) Pollen(Swelling) Pollen(Itching of eye) Allergy Not found in Search(fall leaves) Trees(more in the fall of the year, leaves) Trees(itchy watery eyes, sinus problems) shellfish(diarrhea) Current Home Meds: (Last Updated 11/27 15:48) ascorbic acid (Vitamin C) 1,000 mg Daily calcium-vitamin D (Calcium 600+D) Daily multivitamin with minerals (Centrum Silver) 1 tab Daily No Vital Signs Data Available Initial Wt: No Data Available Physical Exam: - cachectic-appearing - opening eyes to voice - PERRL, EOMI - not following commands - answers some questions - moving all extremities full-strength Most Recent 24 Hour CBC/BMP Results No Latest CBC or BMP Found. No 24 Hour Lab Data. Studies: Pending or Completed in the Last 24 Hours XR Chest 1 View Ordered ASSESSMENT: _ NEURO: #Intraparenchymal Hemorrhage #Subarachnoid Hemorrhage - Q1NC - SBP < 140, liberalization plan pending - briviact - Goal normonatremia, Na levels q24 - NS as needed - EVD if hydrocephalus with goal ICPs<22 Diagnostics: - CTH: 11cc L parietal lobe IPH w/ adjacent edema and scattered L frontal and parietal SAH. no midline shift - CTA: pending - rCTH: pending CV: - SBP goal per neuro plan - BP prn //Cardene gtt, leandro if required PULM: - RA ## Right pleural effusion ## Right pleural consolidation - CT chest, abdomen, and pelvis w/ and w/o - pending imaging may consider interventional pulmonology consult for pleural effusion aspiration to evaluate if malignant pleural effusion GI: - NPO : - Void spont - Tiwari if needed HEME: - Daily CBC -plt>100k - INR<1.5 ID: - no needs ENDO: - no needs PPX: SCDs, hold pLov Dispo:PT/OT, ICU for acute BP management Attending vascular neurosurgeon attestation: I saw and examined the patient on 11/28 and agree with the assessment and plan. Electronic Signature on File Electronically Reviewed/Signed by: Marcin Peralta MD Author Signature Dt/Tm:11/27/2024 04:57 PM Resident Department of Neurosurgery Electronically Reviewed/Signed by: Loco Aguila MD, FAANS, FACS Cosigner Signature Dt/Tm: 11/30/2024 11:07 AM Tube Fitter of Neurosurgery, Neurology, and Battery Tester Field, Cerebral Revascularization Program Department of Neurosurgery, [facility] [place] Cardiology Consult note * MD Sri, Adriel G: MODIFY MD Fierro Edward G: MODIFY, MODIFY, MODIFY, MODIFY, MODIFY, MODIFY, MODIFY Sue Delacruz MD, Van: MODIFY, MODIFY Sue Delacruz MD, Van: MODIFY, MODIFY Sue Delacruz MD, Van: MODIFY Event Display: Cardiology Consult Authored Date: [id number] CARDIOLOGY INPATIENT CONSULT Name: NANCY FORBES Patient Number: [id number] : 1945 Date of Admission: 11/27/2024 Date of Service: 12/01/2024 REQUESTING PHYSICIAN'S NAME: MD Ann Christine F REASON FOR CONSULTATION: New onset HFrEF ASSESSMENT: 78-year-old female, with a history of breast cancer status post lumpectomy in , radiation therapy, and chemotherapy, who presented to our institution after being found to have a frontal and parietal SAH. During her hospital stay, a TTE was performed and it showed a reduced ejection fraction with abnormal wall motions as described below. We were consulted for evaluation of these findings and further recommendations. Upon evaluation he patient denies any episodes of chest pain, SOB/LESLIE, orthopnea, bendopnea or PND. Her echo findings, in the setting of her acute illness, could represent a stress induced cardiomyopathy for which we will recommend to slowly start GDMT as tolerated and a repeat echo next week. An LAD infarction cannot be ruled out solely based on these results however the patient is currently not appropriate to undergo a cardiac cath. If RWMA persist she may need ischemic evaluation in the future with some type of stress testing. Recommendations as below: RECOMMENDATIONS: _ 1 ) Will recommend to start low dose metoprolol with Metoprolol Tartrate 25mg BID, if she toleratesthis will be transitioned to Succinate for GDMT 2 ) Although she would likely benefit from ischemic evaluation she is not currently a candidate forcath as she cannot receive AC or anti-platelet therapies. 3 ) Will recommend a repeat limited TTE for LV function and RWMA early next week (Saturday) Will continue to follow I interviewed and examined this patient with the Cardiology Consult team. I reviewed the results and generally agree with the findings and plan as listed. Patient without known h/o CAD or cardiovascular illness presents with SAH and mental status change. 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 ECG could reflect this or LAD territory infarct. Unfortunately she is not a candidate for invasive approaches and a conservative pathis most appropriate. Would optimize medications as mentioned starting with beta-blockade and then adding NORMAN-I or ARB ifblood pressure allows. Yonatan Fierro MD Cable Coverer Tube Fittersenior premium auditor and Radiology HPI: 78-year-old female, with a history of breast cancer status post lumpectomy in , radiation therapy, and chemotherapy, who presented to our institution after being found laying on the floor, confused and less responsive. She was taken to ED where she was found to have a frontal and parietal SAH necessitating transfer to [facility]. During her hospital stay, was also found to have large volume ascites and a large right-sided pleural effusion with near complete atelectasis of the right lung. There was sclerotic metastatic disease present throughout the pelvis and spine, Patient subsequently underwent thoracentesis with interventional pulmonology in which 1.5 L of serosanguineous pleural fluid was removed. Pleural fluid studies obtained suggestive of exudative pleural effusion with atypical cells suggestive of malignancy. Chest CT also showed segmental PEs. For evaluation of cardioembolic sources of bleeding a TTE was performed and it showed a newly reduced ejection fraction with abnormal wall motions as described below. We were consulted for evaluation of these findings and further recommendations. PAST MEDICAL HISTORY: Problems: Osteoporosis Changing skin lesion Elevated LDL cholesterol level Cancer of right breast Migraines Arthritis Tobacco user Hospital Day: 4 Surgical Hospital Day/Procedure: No procedures found MEDICATIONS: Active Inpt Meds: brivaracetam (Briviact) 50 mg IV q12h diclofenac topical (diclofenac 1% topical gel) 1 appl topical qid docusate (Colace) 100 mg NG-tube bid enoxaparin (Lovenox) 40 mg subQ q24h famotidine (Pepcid) 20 mg IV q12h mupirocin topical (mupirocin 2% nasal ointment) 1 appl each nostril bid polyethylene glycol 3350 (MiraLax) 17 g NJ-tube bid(Pending Complete) potassium phosphate 15 mmol IV q3h senna 8.6 mg PO Daily Active PRN Meds: acetaminophen (Tylenol) 650 mg PO q4h hydrALAZINE 10 mg IV Push q20min labetalol 10 mg IV Push q10min lidocaine (lidocaine 1% injectable solution) 1 mL subQ As indicated Active IV Meds: None Allergies and Sensitivities: penicillins(Diarrhea) Pollen(Swelling) Pollen(Itching of eye) Allergy Not found in Search(fall leaves) Trees(more in the fall of the year, leaves) Trees(itchy watery eyes, sinus problems) shellfish(diarrhea) VITAL SIGNS AND EXAM: Vitals Temp Pulse BP RR SpO2 FIO2 Date Wt(kg) Wt(lb) 12/01 14:00 ---- 77 117/67 21 96 12/01 44.3 97 12/01 12:00 36.5 82 119/75 14 99 11/29 44.3 97 12/01 10:00 ---- 62 129/68 17 98 11/29 45.3 100 12/01 08:00 36.8 74 138/79 18 96 11/27 45.5 100 12/01 06:00 ---- 77 123/66 21 100 2.0L/m 11/27 46.0 101 24 Hr Tmax: 37 at 11/30 16:00 36 Hr Tmax: 37.1 at 11/30 12:00 Vital Signs are the last 5 in the past 48 hours. Weights display the last 5 within 7 days. Initial Wt: 11/27 kg 100 lb Recorded Input Output Balance 12/01 7a-3p 1032 400 632 3p-11p 56 0 56 11p-7a 0 0 0 24 Total 1088 400 688 11/30 7a-3p 687 350 337 3p-11p 713 500 213 11p-7a 465 485 -20 24 Total 1865 1335 530 Refer to the I-VIEW - I and O tab for details Physical Exam: General: lying comfortably in bed without any acute distress HEENT: PERRLA, EOMI, no scleral icterus Neck: no JVD, no carotid bruits CV: regular rhythm, normal rate, normal S1, S2, no murmurs Lungs: clear to auscultation bilaterally, no wheezing, no rhonchi Abd: soft, non-tender, non-distended, normoactive BS Ext: 2+ distal pulses, no edema, warm Neuro: non focal, CN II-XII intact LABS: Most Recent Lab Results over the last 24 Hours: CBC: on 12/01/2024 03:37 Nephrology Panel: on 12/01/2024 03:37 14.6 140 104 20 11.9 261 113 43.0 3.3 27 0.57 Ca = 9.0 eGFR CKD-EPI: >90 Most Recent 24hr Labs as of 12/01 0423 Estimated CrCl 59.37 12/01 0337 MCH 31.5 MCHC 34.0 MCV 92.9 RBC 4.63 MPV 9.5 RDW 13.9 Anion Gap 9 BUN 20 Ca 9.0 Cl- 104 HCO3 27 Cret 0.57 L Glu 113 H K 3.3 L Mg 2.0 Na 140 PO4 1.7 L eGFR CKD-EPI >90 Alb 3.1 L OTHER LABS: RELEVANT IMAGING: Echo TransTHORacic TTE Complete w/ Cont 11/30/2024 Summary 1. Failed 2D images were enhanced with Definity per lab protocol. 2. Normal left ventricular size with moderately reduced systolic function. 3. EF as calculated by Biplane Simpsons method 35 %. 4. Distal anterior, anteroseptal, inferior, inferoseptal, and apical hypokinesis. 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 5. No left ventricular hypertrophy. 6. Normal diastolic function. 7. Normal right ventricular size and function. 8. Moderate pericardial effusion WITHOUT evidence of tamponade. 9. No significant valvular abnormalities. 10. Estimated pulmonary arterial systolic pressure is 29 mmHg. 11. No prior studies at [facility] for comparison. CT Thorax w contrast IMPRESSION: 1. Acute left lower lobe anterior and lateral segmental pulmonary emboli. 2. Decreased large right pleural effusion and increased small left pleural effusion. 3. Improved right lung aeration with findings in the portion of the right lower lobe which was previously collapsed most suggestive of mild edema. 4. Redemonstrated findings of blastic osseous metastatic disease. No lymphadenopathy. No pulmonary nodule/mass in the aerated portions of the lungs. Electronic Signature on File Electronically Reviewed/Signed by: Van Delacruz MD Author Signature Dt/Tm:12/01/2024 09:31 PM Resident [facility] [place] Electronically Reviewed/Signed by: Van Delacruz MD Cosigner Signature Dt/Tm: 9:31 PM Resident [facility] [place] Electronically Reviewed/Signed by: Adriel Fierro MD Cosigner Signature Dt/Tm: 12/01/2024 10:12 PM [facility] [place] [facility], [address], [place] [address] HO Medicine Inpt Consult * MD Daija, Rj Chanel: MODIFY MD Choe Ryan J: MODIFY, MODIFY, PERFORM Event Display: Medicine Inpt Consult Authored Date: [id number] Reason for Consultation Transfer ofto internal medicine History of Present Illness Nancy Forbes is a 78-year-old female, with ahistoryof breast cancerstatus postlumpectomyin ,radiationtherapy, and chemotherapy,who was reportedly found down in her living community at the [facility] at [facility]. She was subsequently taken to her local emergency department and found to have an intracranial hemorrhage necessitating transfer to [facility]. Initially was admitted to the neurosurgery service, however, at this point there is no indicated surgical interventions. During her hospital stay, was also found to have large volume ascites within the abdomen. Also found to have a large right-sided pleural effusion with near complete atelectasis of the right lung. There was sclerotic metastatic disease present throughout thepelvis and spine, there were noted to be slightly heterogeneous appearance, with differential diagnosis including metastatic lung disease and less likely occult breast malignancy. Patient subsequently underwent thoracentesis with interventional pulmonology in which 1.5 L of serosanguineous pleural fluid was removed. Pleural fluid studies obtained suggestive of exudative pleural effusion. Ofnote, patient does have a history of breast cancer, treated with lumpectomy in , subsequently treated with chemotherapy and radiation. As there is no indicated neurosurgical interventions at this time, the internal medicine consult service was subsequently contacted for transfer of service to internal medicine. Upon bedside evaluation today, patientreportsher shortness of breath has significantly improved. She also states she has mild headache, which has been improving. Otherwise,denies chest pain, palpitations,dizziness, lightheadedness, abdominal pain, nausea, vomiting, fever, chills. Review of Systems Review of systems negative, except for mentioned in the HPI. Physical Exam Vitals & Measurements T:36.9C TMIN:36.6C TMAX:37C HR:91(Monitored) RR:15 BP:114/64 SpO2:95% Oxygen Flow:2(L/Min) Oxygen Therapy:Room Air WT:44.3kg Input and Output - Last 24 hours (Last 8 hours) Total In: 2051 (688) Total Out: 930 (250) Total Balance: 1122 (438) Keofeed Right, Nares 11/28/2024:105 (30) 11/28/2024 Indwellin (250) NS 1,000 mL:1118 (360) MED INTAKE:140 (73) Tube Feedings:689 (225) General: Alert, no acute distress. Thin appearing. Skin: Warm, dry. HEENT: Normal conjunctiva. Cardiovascular: Regular rate and rhythm, no murmurs, rubs, or gallops. Respiratory: Respirations are non-labored. Lungs are clear to auscultationbilaterally. Gastrointestinal: Soft, non distended, no tenderness. Extremities: No gross deformity or trauma. No lower extremity Edema. Neurological: Normal speech observed. Nogrossneurologic abnormalities noted. 5 out of 5bilateral bulk tank car unloader strength,dorsiflexion, and plantarflexion. Patientunableto follow directions forcomplete neurologic exam,butthere isobservedspontaneously movingall 4 extremities. Psychiatric:Oriented to self. Diagnostic Results (11/27/2024 23:[address] Angio Brain/Head) IMPRESSION: 1. Left occipital hematoma with surrounding vasogenic edema is stable from 11/27/2024 2. Left parietal convexity subarachnoid hemorrhages are stable. 3. Irregularity, smaller caliber and beaded appearance of M2 and M3 branches on the left, nonspecific, could be secondary to vasoconstriction, vasculitis, atherosclerotic disease. Consider further evaluation with MRI and MRA [1] (11/27/2024 23:[address] Abdomen and Pelvis w/ Contrast) IMPRESSION: Left occipital disease most likely metastasis. Diagnostic thoracentesis and/or paracentesis could be considered. Differential diagnosis includes metastatic lung disease. Occult breast malignancy is less likely. Other etiologies such as thyroid and renal cell are unlikely. [2] (11/28/2024 06:48 EST XR Chest 1 View) IMPRESSION: 1. Large right pleural effusion with associated partial right lung collapse, not significantly changed. 2. Small left pleural effusion and osseous sclerotic lesions are better seen on prior CT. [3] (11/29/2024 11:00 EST XR Chest 1 View) IMPRESSION: Small right pleural effusion, markedly decreased. Improvement of right lung collapse. [4] (11/29/2024 11:00 EST XR Shoulder Complete 2+ Views Right) IMPRESSION: 1. Minimally displaced fracture through the anterior aspect of the glenoid. 2. Right rotator cuff arthropathy. [5] (11/29/2024 02:31 EST MRA Brain/Head w/o Contrast) IMPRESSION: 1. Left occipital parenchymal hematoma with surrounding vasogenic edema, stable from 11/27/2024. Difficult to appreciate for underlying enhancement due to acute blood products. Recommended further evaluation within 6 weeks with resolution of parenchymal hematoma. 2. Otherwise no other intracranial enhancing lesions. 3. Stable left parieto-occipital convexity subarachnoid hemorrhages. 4. MRA head is limited due to motion artifacts. plumber's helper are not appreciated on current scan, could be artifactual. [6] Assessment/Plan 44-mhob-dxv-year-old female, with a historyof breast cancerstatus postlumpectomy in ,radiationtherapy, and chemotherapy, who reported found down at her living community at the [facility] who is subsequently taken to local emergency department found to h ave intracranial hemorrhage necessitating transfer to [facility]. Additional imaging demonstrated ascites, large right-sided pleural effusion, and sclerotic lesions to her spine and pelvis consistent with metastatic disease. #Right-sided pleural effusion and ascites, most likely secondary to metastatic process with unknownprimary Initial infectious workup including RVP, blood cultures, urine culture unremarkable. 24-hour urineproteinunremarkable,making nephrotic syndrome unlikely TTE pending to evaluate for cardiogenic cause of pleural effusion SPEP pending Status post thoracentesis on 11/29/2023 internal pulmonology, 1500 cc cc serosanguineous fluid removed Pleural fluid studies positive for lights criteria, suggesting exudative effusion CT chest with contrast to evaluate interval change after thoracentesis evaluate for possible lung nodules suggestive of lung cancer as a possible primary source malignancy Discussed with patient, son, , daughter regarding next stepshere. After discussion of the bedside today, agreed to proceed with imaging to evaluate for possible biopsy target. Medicine team to have further conversationsregarding goals of careand whetherpatient wishes would martín proceed withbiopsy. #Left occipital parenchymal hematoma with surrounding vasogenic edema, stable MRA brain/head without contrast on 11/29/2024 showing stable left occipital parenchymal hematomawith surrounding vasogenic edema Neurosurgery following, no surgical intervention indicated at this time q2h neuro checks Systolic blood pressure goal less than 150 mmHg Continue brivaracetam #Minimally displaced fracture of anterior right glenoid, stable Orthopedic surgery following, recommending nonoperative treatment Weightbearing as tolerated, sling for comfort, may come out of sling for range of motion exercises Ortho to arrange outpatient follow-up Diet:N.p.o.except for medications, pending speecheval. Tube feeds viaKeofeed. Bowel:Docusate and senna Glucose Control:Not indicated at this time. Analgesia:As needed acetaminophen Thromboprophylaxis:SCDs. Chemoprophylaxis contraindicated in settingof intracranial bleed. [facility], pendingnutrition. Neurosurgery and orthopedic surgery following. PT/OT:Ordered Disposition:[facility] [place] CODE STATUS:DNR/DNI Plan discussed with the Internal Medicine Consult Attending, Dr. Choe. Please [place] Text [facility] Medicine Consult Resident with questions. Attestation Attending Attestation: Patient seen on request of on consultation for metastatic disease of unknown primary. I saw and examined the patient independently and discussed the case with the residents on rounds today. I reviewed the labs and agree with history, physical exam, assessment and plan in the resident note except as described below. 78 yo F w/ hx ofbreast cancer > 10 years ago, with lumpectomy and lymph node resection, followed by RT andtargeted agent/ET for 4 years, HL, presented withL IPH and AMS. Subsequently found to have blastic/sclerotic bone lesions. Givensignificant pleural effusion (cytology pending) smallcell lung cancer a possibility, though breast with more blastic features remains possible as well. InitialCT head felt to represent brain metastasis, but MRI less suggestive, thoughdifficult to interpret with blood products. NSG fairlycertain that no brain metastasis are present in daily note. Echo today, CT scan of thorax for?primary lesion now that pleural effusion removed. Mental status greatly improved.Discussion at bedside with patient and family yesterday was leaning more apalliative route, but with rapid improvement, patient canmake decisions for her own ongoing care/workup of oncology. ECOG status good, though return of swallowing abilityneeds reassess ment. Rj Choe MD. Pager [phone]. Problem List/Past Medical History Ongoing Arthritis Cancer of right breast Changing skin lesion Elevated LDL cholesterol level Migraines Osteoporosis Tobacco user Resolved Breast lump Procedure/Surgical History Bone density scan| Service Date: 07/15/2023Mammogram| Service Date: 06/11/2023Mammogram| Service Date: 06/06/2022Mammogram| Service Date: 09/21/2019DXA scan T score| Service Date: 10/30/2018Mammogram| Service Date: 09/19/2018Mammogram| Service Date: 03/24/2018Mammogram| Service Date: 09/24/2017Colonoscopy| Service Date: 07/04/2017Mammogram,bilateral digital diagnostic mammogram tomosynthesis with cad and tarteted right ultrasound| Service Date: 10/26/2016Mammogram - screening| Service Date: 10/19/2015right diagnostic mammogarm with US| Service Date: 04/06/20 15Radiation| Service Date: 12/29/2014US - Ultrasound| Service Date: 12/13/2014Ultrasound| Service Date: 10/20/2014Lymph node biopsy| Service Date: 10/20/2014US - Ultrasound| Service Date: 10/18/2014Partial mastectomy with axillary lymphadenectomy| Service Date: 09/13/2014Partial mastectomy with axillary lymphadenectomy| Service Date: 09/13/2014PET scan| Service Date: 09/01/2014one density scan| Service Date: 08/26/2014one density (bone mineral content) study, 1 or more sites; dual photon absorptiometry, 1 or more sites| Service Date: 08/26/2014Ultrasound guided biopsy| Service Date: 08/19/2014reast biopsy and related procedures| Service Date: 08/18/2014Diagnostic Mammogram with US guided Biopsy Right Breast| Service Date: 08/18/2014Mammogram| Service Date: 08/06/2014Knee Surgery Medications Inpatient acetaminophen(Tylenol), 650 mg= 2 tab, PO, q4h, PRN brivaracetam(Briviact), 50 mg, injection, IV, q12h, Routine, 11/27/24 19:00:00 EST, 01/26/25 8:00:00 EDT, 11/27/24 18:03:00 EST docusate(Colace), 100 mg= 10 mL, NG-tube, bid famotidine(Pepcid), 20 mg= 2 mL, IV, q12h hydrALAZINE, 10 mg= 0.5 mL, IV Push, q20min, PRN iohexol(Omnipaque 350), 75 mL, contrast-IV, ONCE labetalol, 10 mg= 2 mL, IV Push, q10min, PRN lidocaine(lidocaine 1% injectable solution), 1 mL, subQ, As indicated, PRN mupirocin topical(mupirocin 2% nasal ointment), 1 appl, each nostril, bid potassium phosphate-sodium phosphate(K-Phos Neutral), 1 tab, NG-tube, bid senna, 8.6 mg= 1 tab, PO, Daily Home ascorbic acid(Vitamin C), 1000 mg, Daily calcium-vitamin D(Calcium 600+D), Daily multivitamin with minerals(Centrum Silver), 1 tab, Daily Allergies Allergy Not found in Searchfall leaves PollenItching of eye, Swelling Treesitchy watery eyes, sinus problems, more in the fall of the year, leaves penicillinsDiarrhea shellfishdiarrhea Social History Smoking Status Smoker, current status unknown Alcohol - Denies Alcohol Use Employment/School Status: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 Family History Breast cancer: Mother. Hypertension: Mother. Health Status Family Member(s) Immunizations Vaccine Date Status SARS-CoV-2 mRNA (Pfizer 12+) bivalent 08/07/2022 Recorded Comments : 2022-09-13: Historical information-source unspecified SARS-CoV-2 mRNA (qteqjzgfjgs-fgvh-nyt) 04/16/2022 Recorded Comments : 2022-09-13: Historical information-source unspecified SARS-CoV-2 (COVID-19) mRNA BNT-162b2 vax 08/17/2021 Recorded Comments : 2021-09-11: Historical information-source unspecified SARS-CoV-2 (COVID-19) mRNA BNT-162b2 vax 03/04/2021 Recorded Comments : 2021-08-07: Historical information-source unspecified SARS-CoV-2 (COVID-19) mRNA BNT-162b2 vax 02/11/2021 Recorded Comments : 2021-08-07: Historical information-source unspecified influenza virus vaccine, inactivated 07/28/2020 Given zoster vaccine, inactivated 10/05/2019 Recorded Comments : 2021-08-07: Historical information-source unspecified influenza virus vaccine, inactivated 09/02/2019 Given zoster vaccine, inactivated 02/20/2019 Recorded Comments : Done at the [facility] zoster vaccine, inactivated 2018 Recorded Comments : [facility] influenza virus vaccine, inactivated 08/19/2018 Given influenza virus vaccine, inactivated 08/15/2017 Given influenza virus vaccine, inactivated 08/09/2016 Given pneumococcal 23-valent vaccine 08/18/2015 Given influenza virus vaccine, inactivated 07/21/2015 Recorded pneumococcal 13-valent vaccine 09/20/2014 Given zoster vaccine live 08/17/2014 Given Comments : Other : nurse busy tetanus/diphtheria/pertuss, acel (Tdap) 08/17/2014 Given Comments : Other : nurse busy influenza virus vaccine, inactivated 07/21/2014 Given influenza virus vaccine, inactivated 07/20/2013 Given [1]CT Angio Brain/Head; MD Emiliano, Eivenkatesh 11/27/2024 23:18 EST [2]CT Abdomen and Pelvis w/ Contrast; MD Duron Seth Millard 11/27/2024 23:18 EST [3]XR Chest 1 View; DO O[facility] 11/28/2024 06:48 EST [4]XR Chest 1 View; DO O[facility] 11/29/2024 11:00 EST [5]XR Shoulder Complete 2+ Views Right; DO Oli [facility] 11/29/2024 11:00 EST [6]MRA Brain/Head w/o Contrast; MD Emiliano, Einat 11/29/2024 02:31 EST Electronic Signature on File Electronically Reviewed/Signed by: Chung Macias MD Author Signature Dt/Tm:11/30/2024 12:44 PM Resident Department of Anesthesia Electronically Reviewed/Signed by: Rj Choe MD Cosigner Signature Dt/Tm: 12/01/2024 08:33 AM [facility] * MD Tanner, Irving A: ALEXY Perez MD, Rene Beard: PERFORM Event Display: Orthopaedics Consult Authored Date: [id number] ORTHOPAEDICS CONSULTATION REPORT Name: NANCY FORBES Patient Number: [id number] : 1945 Date of Service: 11/29/2024 REASON FOR CONSULTATION: Closednondisplaced R anterior glenoid fracture CONSULTING SERVICE: Neurosurgery TIME OF CONSULTATION: 4:00 PM TIME OF EVALUATION: 4:15 PM HISTORY OF PRESENT ILLNESS: Patient is aR-hand [id number], who is currently being treated by neuro for a brain bleed, who was found to have a R glenoid fracture on Xray after shewas reluctant to move her RUE. Orthopaedic surgery was consulted for further evaluation and recommendations. At the time of evaluation, patient denies any numbness or tingling. REVIEW OF SYSTEMS: All other systems are negative PAST MEDICAL HISTORY: metastatic breast cancer, brain bleed, ascites, pleural effusions, osteoporosis PAST SURGICAL HISTORY: Denies FAMILY HISTORY: No family or personal history of blood clots or bleeding disorders. No family or personal historyof lifethreatening complications with anesthesia. SOCIAL HISTORY:Denies tobacco use,denies alcohol use, denies illicit drug use PHYSICAL EXAM: On exam, the patient is well-appearing in no acute distress.Mood and affect are normal.Alert and cooperative with examination.Head is normocephalic, atraumatic.Neck is supple, trachea midline.Nonlabored breathing.Equal chestrise bilaterally.On examination of theR upper extremity, skin is intact.Tender to palpation about the shoulder without obvious deformity.Otherwise, patient demonstrates painless range of motion of the elbow, fingers.Sensation is intact to light touch along the median, ulnar, radial, axillary nerve distributions.Motor is intact.Able to give a thumbs up, okay sign, spread and cross index and longfingers, make a composite fist.Fires biceps, triceps, deltoid, wrist flexors, wrist extensors, finger flexors, hand intrinsics.Radial pulse 2+.Brisk capillary refill in all 5 fingers. IMAGING: Radiographs of theRoulder obtained and reviewed,demonstrate evidence ofa R glenoid fracture, ASSESSMENT: Patient is aR-hand dominant, 78-year-old female with aminimally displaced R glenoidfracture. Closed and neurovascularly intact. PLAN: -We discussed the risks and benefits of operative versus nonoperative management of her injury. We discussedwith the patient that given the nature of the injury pattern, we would recommend nonoperative treatment, -weight bearing as tolerated.Sling for comfort. May come out of sling for ROM exercises. -We will arrange outpatientfollow-up in 3 weeks with repeat radiographs AP, axillary and lateral of [facility] upon arrival. -Patient was staffed with attending surgeon Dr. Hart -Please tiger text ortho sports resident with any questions I have not seen the patient, but have reviewed the note and discussed with the resident on the dateof service. Irving Ko M.D., have developed the treatment plan. I, Irving Hart MD, interviewed and examined the patient on November 30, 2024 at 6:45 AM and developed the treatment plan. I did remove the restraints temporarily to perform physical examination. She has 100 degrees of active forward elevation and abduction. She has no pain or weakness with Jobestest. She has external rotation of 50 degrees. She has no weakness with shoulder external rotation at her side. Radiographically, she has a minimally displaced glenoid fracture. At this time, she will continue nonoperative management. She will follow-up with me in 3 weeks for repeat radiographs ofher right shoulder. Irving Ko MD, also personally performed the services described in this documentation and it is both accurate and complete. Electronic Signature on File Electronically Reviewed/Signed by: Rene Perez MD Author Signature Dt/Tm:11/29/2024 07:41 PM Resident Division of Orthopaedics Electronically Reviewed/Signed by: Irving Hart MD Cosigner Signature Dt/Tm: 11/30/2024 04:11 PM Division of Sports Medicine [facility] Facility Discharge Instructions * MINI Pierson Susan: ALEXY Pierson RN, Susan: MODIFY, Miryam Andres: PERFORM Event Display: Facility Discharge Instructions Authored Date: [id number] NANCY FORBES :1945 Visit Date:11/27/2024 Facility Discharge Instructions [facility] For medical concerns, call: . Date of Admission:11/27/2024 Date of Discharge:12/11/2024 Physician:MD Cristobal, Mary Ramirez Service:Internal Medicine Discharge Disposition: [facility] Miryam Ko am scribing for and in the presence ofMary Jain MD. Primary Care Provider/Phone: WOLFGANG LIZARRAGA, MARY Justice (BUSINESS) [phone] (FAX BUSINESS) . Advance Directive:Living will, Health Care Power of Gang Head Saw Operator, POLST / MOLST / MOST Reason for Hospitalization Intracranial Hemorrhage Your Diagnoses Biliary pleural effusion Cardiomyopathy Fracture of glenoid process of right scapula with delayed healing Intraparenchymal hematoma of brain Metastatic neoplastic disease Multiple subsegmental pulmonary emboli without acute cor pulmonale Stress-induced cardiomyopathy [employer] Patient Portal: [facility] [employer] makes it easy for you to manage your health information online. [place] [facility] [employer] is a free service that provides you instant, secure access to your medical information anytime, anywhere. Sign in or set up your account today at [email or web address] Thank you for allowing us to assist you with your healthcare needs. If you need additional community resources, [place] can help at https://www.pa211.org. 211 can assist you in connecting with social programs based on your unique needs and locations. 211 is an anonymous search that can help you locate resources for: Food, Housing, Transportation, Goods, Education and Healthcare. Hospital Course 78-year-old female who was reportedly found down at her living community [facility] near [place] and subsequently taken to the local emergency room where an intracranial hemorrhage was found necessitating transfer to [facility]. In addition,imaging demonstrated ascites as well as a large right-sided pleural effusion, and lesions to spine and pelvis.The neurosurgical team consulted internal medicine for further workup and management recommendation and her stress induced cardiomyopathy was treated medically. Subarachnoid Hemorrhage Left occipital parenchymal hematoma with surrounding vasogenic edema, stable -MRA brain/head without contrast on 11/29/2024 showing stable left occipital parenchymal hematoma with surrounding vasogenic edema -Neurosurgery evaluated, no surgical intervention indicated at this time -q4h neuro checks while hospitalized -Systolic blood pressure goal less than 150 mmHg -Continue brivaracetam - Ok for prophylactic anticoagulation-started inpatient on 12/08 - Repeat MRI with and without contrastaround 01/10/25 (approx 6 weeks form initial MRI) - Will need outpatient Neurosurgery appointment in [place] and coordination of MRI Sclerotic spine and pelvislesion, concerning for malignancy Right-sided pleural effusion and ascites, most likely secondary to metastatic process with unknown primary, s/p thoracentesis - Urine immunofixation, cannot rule out myeloma but SPEP negative - Atypical cells on pleural effusion cytology - S/P Spine lesion biopsy with IR 2/, pending pathology results. Please reach out to the hospital Medical Records for results -Previous hospitalist team, discussed imaging with radiologist and lung cancer or ovarian cancer unlikely - Can not rule out intracranial malignancy as blood products on intracranial lesion limits radiologic evaluation and will need imaging in 6 weeks - Once pathology is resulted, patient will need to establish with oncologist in [place] Acute stress induced cardiomyopathy Anterior ST changes on EKG Intermittent chest pain - TTEshowedEF 35%,findings are consistent with a stress-induced cardiomyopathy, but cannot exclude a large LAD territory infarct, andmoderate pericardial effusion WITHOUT evidence of tamponade. - Started metoprolol 50mg, lisinopril5 mg, spironolactone 12.5 mg daily, and Jardiance and will continue at discharge - Started Jardiance, $33 per month - Cardiology recommended repeat limited TTE for LV function on 12/07: improved 40- 45% EF - Will need outpatient cardiology care for ischemic evaluation after discharge. Not done inpatient as patient had recent brain bleed and would not be candidate for intervention Incidental subsegmental left lower lobe pulmonary embolisms - No evidence ofDVT on bilateral lower extremity duplex - No therapeutic anticoagulation given intracranial bleed -DVT prophylaxis while inpatient and this was continued at discharge as patient does have hypercoagulable state with metastatic cancer of unknown primary -PCP to further re-asses anticoagulation weighing risks and benefits. Minimally displaced fracture of anterior right glenoid, stable -Orthopedic surgery following, recommending nonoperative treatment -Weightbearing as tolerated, sling for comfort, may come out of sling for range of motion exercises -Ortho to arrange outpatient follow-up - Topical diclofenac for pain control Acute Hypoxic Respiratory Failure, likely secondary to pulmonary effusion-resolved Poor oral intake - Encouraged intake; proteinsupplements Exam on Discharge Vitals & Measurements: T:36.4C TMIN:35.9C TMAX:36.6C HR:50(Monitored) RR:16 BP:121/53 SpO2:100% Oxygen Therapy:Room Air General:Frail, NAD, alert and cooperative. Eyes: anicteric, conjunctiva without injection ENT:MMM. Oral cavity non-erythematous CV:RRR, S1 S2 present with no murmur. No noted edema. Lungs:CTA B/L with no wheezes, rales, rhonchi. No increased WOB. On RA. Abdomen:Soft, NTND, +BS MSK:FROM Neuro:No facial asymmetry at rest or with activation. Psych:Appropriate and cooperative, excited to be leaving. Oriented x3 Skin:Warm, dry, intact Medications Patient is enrolled in Rx-to-Go Program New medications will be delivered from [facility] to patient's room at discharge: Mon-Sun from 9AM-5 PM. Medications MUST be PICKED UP at [facility] if patient is discharged Mon-Sun after 5 PM or anytime on holidays. Please note, the [facility] closes at 8 PM on and 5:30 PM on Saturdays, Sundays, and holidays. What How Much When Instructions Next Dose New acetaminophen (acetaminophen 500 mg oral tablet) 2 tab(s) by mouth Every 8 hours 12/11/24 1700 New brivaracetam (brivaracetam 50 mg oral tablet) 1 tab(s) by mouth 2 times daily 12/11/242099 New diclofenac topical (diclofenac 1% topical gel) 1 linda topically 4 times daily as needed for discomfort New empagliflozin (Jardiance 10 mg oral tablet) 1 tab(s) by mouth Once daily 12/12/24 08 New enoxaparin (Lovenox) 30 Milligram subcutaneously Every 24 hours 12/12/24 08 New famotidine (Pepcid 20 mg oral tablet) 1 tab(s) by mouth Every 12 hours 12/11/242099 New lidocaine topical (lidocaine 4% patch) transdermally Every 24 hours 12/12/24 08 New lisinopril (lisinopril 5 mg oral tablet) 1 tab(s) by mouth Once daily 12/12/24 08 New metoprolol (metoprolol succinate 50 mg oral tablet, extended release) 1 tab(s) by mouth Once daily 12/12/24 08 New polyethylene glycol 3350 (MiraLax) 17 gram by mouth 2 times daily 12/11/242099 New simethicone (simethicone 80 mg oral tablet, chewable) 1 tab(s) by mouth Before meals and at bedtime as needed for Abdominal bloating - gas pain New spironolactone (spironolactone 25 mg oral tablet) 0.5 tab(s) by mouth Once daily 12/12/24 08 Unchanged ascorbic acid (Vitamin C) 1,000 Milligram Once daily 12/12/24 0800 Unchanged calcium-vitamin D (Calcium 600+D) Once daily What How Much When Comments Stop Taking anastrozole (anastrozole 1 mg oral tablet) 1 tab(s) by mouth Once daily Stop Taking multivitamin with minerals (Centrum Silver) 1 tab(s) Once daily Allergies Allergy Not found in Searchfall leaves PollenItching of eye, Swelling Treesitchy watery eyes, sinus problems, more in the fall of the year, leaves penicillinshives, Diarrhea shellfishdiarrhea What to do next Instructions From Your Doctor You were admitted to [facility] for treatment of:Brain Bleed Please follow up with your primary care doctor within 4-7 days of discharge from the hospital. A discharge summary will be sent to your primary care physician to ensure continuity of care. Please bring this discharge summary with you to your next office appointment so that your provider canreview it at that time. Follow-up appointments: 1. Keep all your follow-up appointments as already scheduled. If you cannot make an appointment, notify your provider. 2. We have requested an appointment with your primary care provider within 1 week of discharge. Medications: - Your medication list has been reviewed and reconciled upon discharge to ensure accuracy and continuity of care. - You are provided with a list of all your current medications at this time. Please review closely and make note of any changes. - Please take all of your medications exactly as prescribed. - Tell your primary care provider if you cannot afford your medications. - Call your primary care provider if you are having any side effects or any other problems. - Call your primary care provider before taking any over the counter medications or supplements, including herbals and vitamins, because some of these may interact with your current medications and/or make your symptoms worse. It was our pleasure to care for you during your hospitalization. If you notice the following symptoms Please call your primary care provider for symptoms including, but not limited to: fevers (temperatures >100.4 degrees F or 38.1 degrees C), chills, intractable nausea or vomiting, diarrhea, rash,shortness of breath, bleeding, pain, or if you experience any worsening of the symptoms that brought you to the hospital. ForEMERGENCYandVERY SERIOUShealth-related issues, such as chest pain, shortness of breath, or sudden onset of the symptoms that brought you to the hospital, you may need to [id number] [facility]. Contact the [facility] Careline at . If unable to contact your physician and you feel it is an emergency, go to the nearest Emergency Room or call 911 Diet Instructions Speech Therapy Recommendations: 1. Initiate regular diet with thin liquids.2. Medications whole with liquids/purees as tolerated.3.Straws allowed.4. Standard aspiration and reflux precautions.5. Stringent oral care 3x/day. Activity Instructions You may resume your previous home activities, but go slowly and pace yourself as tolerated. Always take fall precautions, and ask for assistance as you regain your strength, coordination, and endurance. Follow-Up Appointments Scheduled Follow-Up Appointments Date/Time:Provider/Resource: Dec 12:45 pmRadiology EC Location/Instructions:[facility] [place], [address], [address], [facility] [address] Date/Time:Provider/Resource: Dec 01:15 WOLFGANG Caraballo Jessica Lynn Location/Instructions:[facility] [place], [address], [address], [facility] [address] Date/Time:Provider/Resource: Jan 03:[facility] Location/Instructions:To ensure your safety ALL patients will be required to change into a gown. Please DO NOT wear undergarments that contain any Metallic components to them, as these have the potential to cause injury. All glucose monitoring devices will be required to be removed. Children under the age of 12 years require adult supervision and may not be left unattended while a parent or guardian is having an exam. Date/Time:Provider/Resource: Jan 11:15 MD Sterling Ephraim W Location/Instructions:[facility], [address], [address], [address], [place] [address] You Need to Schedule the Following Appointments 1. PCP follow up in [place] 2. Neurosurgery follow up with MRI of brain with and without contrast. You are scheduled with Dr. Aguila in [place] on 01/11/25. 3. Cardiology followup 4. Orthopedics follow up (already scheduled) The Following Services Have Been Arranged for You Service: Organization: Business Address: Phone Number: [facility] [address], [place], [place], [address] Test Results Test Name Test Result Date/Time Na 137 mmol/L 12/10/2024 07:51 EST K 3.8 mmol/L 12/10/2024 07:51 EST Cl- 100 mmol/L 12/10/2024 07:51 EST HCO3 28 mmol/L 12/10/2024 07:51 EST Anion Gap 9 mmol/L 12/10/2024 07:51 EST BUN 12 mg/dL 12/10/2024 07:51 EST Cret 0.72 mg/dL 12/10/2024 07:51 EST Estimated CrCl 46.63 mL/min 12/10/2024 09:14 EST eGFR CKD-EPI 86 mL/min/1.73 m2 12/10/2024 07:51 EST Glu 81 mg/dL 12/10/2024 07:51 EST Ca 9.7 mg/dL 12/10/2024 07:51 EST Mg 2.0 mg/dL 12/05/2024 06:24 EST PO4 3.1 mg/dL 12/10/2024 07:51 EST Osmolality 274 mOsm/kg 11/28/2024 14:27 EST WBC 8.30 K/uL 12/08/2024 06:39 EST Hgb 14.5 g/dL 12/08/2024 06:39 EST Hct 42.5 % 12/08/2024 06:39 EST RBC 4.58 M/uL 12/08/2024 06:39 EST MCV 92.8 fL 12/08/2024 06:39 EST MCHC 34.1 g/dL 12/08/2024 06:39 EST MCH 31.7 pg 12/08/2024 06:39 EST RDW 13.4 % 12/08/2024 06:39 EST Plts 334 K/uL 12/08/2024 06:39 EST MPV 10.3 fL 12/08/2024 06:39 EST Type of Diff: AUTO 11/28/2024 18:23 EST Immature Gran% 0.4 % 11/28/2024 18:23 EST Neut% 84.3 % 11/28/2024 18:23 EST Lymph% 3.7 % 11/28/2024 18:23 EST Winkler% 10.9 % 11/28/2024 18:23 EST Baso% 0.2 % 11/28/2024 18:23 EST Eos% 0.5 % 11/28/2024 18:23 EST Immat Gran, Abs 0.06 K/uL 11/28/2024 18:23 EST Neut, Abs 11.30 K/uL 11/28/2024 18:23 EST Lymph, Abs 0.50 K/uL 11/28/2024 18:23 EST Winkler, Abs 1.47 K/uL 11/28/2024 18:23 EST Baso, Abs 0.03 K/uL 11/28/2024 18:23 EST Eos, Abs 0.07 K/uL 11/28/2024 18:23 EST Smr (Path Rev) Technical portion complete. Interpretation to follow. 11/28/2024 18:23 EST INR 1.0 12/07/2024 08:35 EST PTT 34 seconds 12/04/2024 20:39 EST PT 13.0 seconds 12/07/2024 08:35 EST ALT 24 unit/L 12/02/2024 01:27 EST T Bili 0.6 mg/dL 12/02/2024 01:27 EST Alk Phos 112 unit/L 12/02/2024 01:27 EST AST 32 unit/L 12/02/2024 01:27 EST Alb 3.6 g/dL 12/10/2024 07:51 EST Prot 5.2 g/dL 12/02/2024 01:27 EST Troponin T ( 5th Gen) 55 ng/L 12/04/2024 20:40 EST Troponin T ( 5th Gen) Delta NOT CALCULATED 12/04/2024 20:40 EST Brain Natriuretic Peptide Fluid 3341 pg/mL 11/29/2024 10:46 EST BNP, NT-Pro 2578 pg/mL 11/27/2024 15:48 EST LDH 205 unit/L 11/30/2024 05:08 EST HbA1c 5.7 % 11/27/2024 14:50 EST Estimated Average Glucose 117 mg/dL 11/27/2024 14:50 EST TSH 1.81 uIU/mL 11/27/2024 15:48 EST Retic Hgb 36.5 pg 11/28/2024 18:23 EST Retic (%) 1.73 % 11/28/2024 18:23 EST Imm. Retics 4.9 % 11/28/2024 18:23 EST Retics (abs) 86.7 K/uL 11/28/2024 18:23 EST Prot, Serum 5.9 g/dL 11/28/2024 18:23 EST Serum Electro Intrp Technical results complete, interpretation to follow on Powerchart. 11/28/2024 18:23 EST Albumin, Serum Protein 3.4 g/dL 11/28/2024 18:23 EST Alpha-1 Globulin, Serum Protein 0.3 g/dL 11/28/2024 18:23 EST Alpha-2 Globulin, Serum Protein 0.8 g/dL 11/28/2024 18:23 EST Beta Globulin, Serum Protein 0.6 g/dL 11/28/2024 18:23 EST Gamma Globulin, Serum Protein 0.8 g/dL 11/28/2024 18:23 EST Ig Free Red [place] 1.65 mg/dL 11/28/2024 18:23 EST Ig Free Lambda 1.23 mg/dL 11/28/2024 18:23 EST Red Cloud/Lambda Ratio (s) 1.34 mg/dL 11/28/2024 18:23 EST M-Stanislaw, Quant (24h) 0.0 mg/24 hrs 11/29/2024 17:51 EST MRSA Surveillance, on Admission MRSA NOT detected 11/27/2024 13:53 EST Color (u) STRAW 11/27/2024 17:08 EST Appear (u) CLEAR 11/27/2024 17:08 EST Glu (u) NEGATIVE 11/27/2024 17:08 EST Bili (u) NEGATIVE 11/27/2024 17:08 EST Ketones NEGATIVE 11/27/2024 17:08 EST SG 1.009 11/27/2024 17:08 EST Hgb (u) NEGATIVE 11/27/2024 17:08 EST pH (u) 7.0 unit 11/27/2024 17:08 EST Prot (u) NEGATIVE 11/27/2024 17:08 EST Urobili 0.1-1.0 11/27/2024 17:08 EST Nitrite (u) NEGATIVE 11/27/2024 17:08 EST Leuk Est NEGATIVE 11/27/2024 17:08 EST Na (u) 44 mmol/L 11/28/2024 13:58 EST Protein (u) 0.170 g/24 hrs 11/29/2024 17:51 EST Osmol (u) 463 mOsm/kg 11/28/2024 13:58 EST Volume (u) 850 mL 11/29/2024 17:50 EST Nuc Cell,fl 134 /uL 11/29/2024 10:46 EST Hct,fl <2.0 % 11/29/2024 10:46 EST RBC,fl <1000 /uL 11/29/2024 10:46 EST Neut,fl 8 % 11/29/2024 10:46 EST Lymph,fl 81 % 11/29/2024 10:46 EST Baso,fl 0 % 11/29/2024 10:46 EST Eos,fl 0 % 11/29/2024 10:46 EST Winkler/Mac/Meso, fl 11 % 11/29/2024 10:46 EST OtherMono,fl 0 % 11/29/2024 10:46 EST Gluc, fl 117 mg/dL 11/29/2024 10:46 EST Protein, fl 4.7 g/dL 11/29/2024 10:46 EST Alb, fl 3.0 g/dL 11/29/2024 10:46 EST LDH, fl 104 unit/L 11/29/2024 10:46 EST Amylase, fl 90 unit/L 11/29/2024 10:46 EST TG, fl 19 mg/dL 11/29/2024 10:46 EST Chol, fl 122 mg/dL 11/29/2024 10:46 EST Hold Extra Fluid SPECIMEN HELD IN VIROLOGY. CALL [phone] TO ADD STUDIES. 11/29/2024 10:46 EST BF Source PLEURAL FLUID 11/29/2024 10:46 EST Request of Physician serum protein level serum LDH 11/30/2024 05:09 EST Action Taken YES 11/30/2024 05:09 EST Test-Name REQUEST CREDITED 11/29/2024 10:50 EST Result & Ref REQUEST CREDITED 11/29/2024 10:50 EST Source, Other Pleural Fluid 11/29/2024 10:50 EST Tests Pending Surgical Pathology Report Pathology Tissue To obtain results pending at hospital discharge, call and ask for the following Physician:MD Cristobal, Mary Broderickassum Procedures Performed (11/27/2024 23:[address] Abdomen and Pelvis w/ Contrast) IMPRESSION: Left occipital disease most likely metastasis. Diagnostic thoracentesis and/or paracentesis could be considered. Differential diagnosis includes metastatic lung disease. Occult breast malignancy is less likely. Other etiologies such as thyroid and renal cell are unlikely. [1] (11/27/2024 23:[address] Angio Brain/Head) [2] (11/27/2024 23:[address] Brain/Head w/o Contrast) IMPRESSION: 1. Left occipital hematoma with surrounding vasogenic edema is stable from 11/27/2024 2. Left parietal convexity subarachnoid hemorrhages are stable. 3. Irregularity, smaller caliber and beaded appearance of M2 and M3 branches on the left, nonspecific, could be secondary to vasoconstriction, vasculitis, atherosclerotic disease. Consider further evaluation with MRI and MRA [3] (11/27/2024 23:[address] Thorax w/ Contrast) IMPRESSION: Left occipital disease most likely metastasis. Diagnostic thoracentesis and/or paracentesis could be considered. Differential diagnosis includes metastatic lung disease. Occult breast malignancy is less likely. Other etiologies such as thyroid and renal cell are unlikely. [4] (11/28/2024 03:19 EST MRI Brain w/o Contrast) IMPRESSION: Scan is nondiagnostic [5] (11/28/2024 06:48 EST XR Chest 1 View) IMPRESSION: 1. Large right pleural effusion with associated partial right lung collapse, not significantly changed. 2. Small left pleural effusion and osseous sclerotic lesions are better seen on prior CT. [6] (11/28/2024 19:55 EST XR Abdomen 1 View) IMPRESSION: 1. Feeding tube tip is in the stomach body. 2. Moderate right and small left effusions. [7] (11/29/2024 02:31 EST MRA Brain/Head w/o Contrast) IMPRESSION: 1. Left occipital parenchymal hematoma with surrounding vasogenic edema, stable from 11/27/2024. Difficult to appreciate for underlying enhancement due to acute blood products. Recommended further evaluation within 6 weeks with resolution of parenchymal hematoma. 2. Otherwise no other intracranial enhancing lesions. 3. Stable left parieto-occipital convexity subarachnoid hemorrhages. 4. MRA head is limited due to motion artifacts. plumber's helper are not appreciated on current scan, could be artifactual. [8] (11/29/2024 02:31 EST MRI Brain w/ + w/o Contrast) IMPRESSION: 1. Left occipital parenchymal hematoma with surrounding vasogenic edema, stable from 11/27/2024. Difficult to appreciate for underlying enhancement due to acute blood products. Recommended further evaluation within 6 weeks with resolution of parenchymal hematoma. 2. Otherwise no other intracranial enhancing lesions. 3. Stable left parieto-occipital convexity subarachnoid hemorrhages. 4. MRA head is limited due to motion artifacts. plumber's helper are not appreciated on current scan, could be artifactual. [9] (11/29/2024 11:00 EST XR Chest 1 View) IMPRESSION: Small right pleural effusion, markedly decreased. Improvement of right lung collapse. [10] (11/29/2024 11:00 EST XR Shoulder Complete 2+ Views Right) IMPRESSION: 1. Minimally displaced fracture through the anterior aspect of the glenoid. 2. Right rotator cuff arthropathy. [11] (11/30/2024 11:51 EST Echo TransTHORacic TTE Complete w/ Cont) Summary 1. Failed 2D images were enhanced with Definity per lab protocol. 2. Normal left ventricular size with moderately reduced systolic function. 3. EF as calculated by Biplane Simpsons method 35 %. 4. Distal anterior, anteroseptal, inferior, inferoseptal, and apical hypokinesis. 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 5. No left ventricular hypertrophy. 6. Normal diastolic function. 7. Normal right ventricular size and function. 8. Moderate pericardial effusion WITHOUT evidence of tamponade. 9. No significant valvular abnormalities. 10. Estimated pulmonary arterial systolic pressure is 29 mmHg. 11. No prior studies at [facility] for comparison. [12] (11/30/2024 14:[address] Thorax w/ Contrast) IMPRESSION: 1. Acute left lower lobe anterior and lateral segmental pulmonary emboli. 2. Decreased large right pleural effusion and increased small left pleural effusion. 3. Improved right lung aeration with findings in the portion of the right lower lobe which was previously collapsed most suggestive of mild edema. 4. Redemonstrated findings of blastic osseous metastatic disease. No lymphadenopathy. No pulmonary nodule/mass in the aerated portions of the lungs. [13] (12/01/2024 13:57 EST VL Lower Ext Venous Duplex Bilateral) INTERPRETATION/FINDINGS Venous duplex exam of the bilateral lower extremities reveals: 1. No evidence of deep or superficial venous thrombosis identified in the bilateral common femoral, proximal great saphenous, femoral, deep femoral, popliteal, gastrocnemius, posterior tibial, and peroneal veins. [14] (12/07/2024 12:[address] Biopsy Bone Superficial) IMPRESSION: CT-guided right iliac sclerotic lesion biopsy [15] (12/07/2024 17:20 EST Echo TransTHORacic TTE Limited w/ Cont) Summary 1. Failed 2D images were enhanced with Definity per lab protocol. 2. Normal left ventricular size with mildly reduced systolic function. 3. Estimated ejection fraction 40-45%. 4. Poor endocardial visualization. Hypokinesis appears to be diffuse. 5. No left ventricular hypertrophy. 6. Moderate pericardial effusion WITHOUT evidence of tamponade. Left pleural effusion is also seen. 7. Right ventricle is not well visualized. Limited views suggest normal RV size with low normal systolic function by fractional area change. 8. No significant valvular abnormalities by 2D imaging. Overall Doppler interrogation was limited on this study otherwise. 9. Since prior study of 11/30/24, LV function is somewhat more vigorous. [16] Nursing Assessment Alexandra Mustafa 11/28/2024 Insert Date:11/28/24 18:00 Removal Date:12/03/24 04:43 Tiwari: 11/27/2024 Straight Cath Insert Date:11/27/24 16:45 Removal Date:No Removal Currently Documented. Tiwari: 11/28/2024 Straight Cath Insert Date:11/28/24 14:30 Removal Date:No Removal Currently Documented. Tiwari: 11/28/2024 Indwelling Insert Date:11/28/24 18:00 Removal Date:No Removal Currently Documented. SPECIAL NEEDS: Sensory Deficits: None Level of Consciousness Neuro: Alert Neurological Symptoms: Confusion/Disorientation ADLS: Minimal assistance Last BM: 12/09/2024 Basic Skin Assessment: [place], Warm, Dry Special Instructions Common Emergency Awareness Tips Call 911 immediately if: experiencing any of the warning signs and symptoms of stroke: B.E. F.A.S.T. Balance: is there trouble with walking or coordination Eyes: is there double vision or visual loss Face: Smile, do both sides of face move equally Arm: Raise arms, do both arms move equally Speech: Is speech slurred or inappropriate Time: Time is critical, call 911 immediately Heart Attack Signs Chest discomfort: Most heart attacks involve discomfort in the center of the chest and lasts more than a few minutes, or goes away and comes back. It can feel like uncomfortable pressure, squeezing, fullness or pain. Discomfort in upper body: Symptoms can include pain or discomfort in one or both arms, back, neck, jaw or stomach. Shortness of breath: With or without discomfort. Other signs: Breaking out in a cold sweat, nausea, or lightheaded. Remember, MINUTES DO MATTER. If you experience any of these heart attack warning signs, call to get immediate medical attention! [1]CT Abdomen and Pelvis w/ Contrast; MD Oliverio, Rene Milton 11/27/2024 23:18 EST [2]CT Angio Brain/Head; MD Emiliano, García 11/27/2024 23:18 EST [3]CT Brain/Head w/o Contrast; MD Emiliano, Einat 11/27/2024 23:18 EST [4]CT Thorax w/ Contrast; MD Oliverio, Rene Yoan 11/27/2024 23:18 EST [5]MRI Brain w/o Contrast; MD Emiliano, Einat 11/28/2024 03:19 EST [6]XR Chest 1 View; DO Oli, [facility] 11/28/2024 06:48 EST [7]XR Abdomen 1 View; MD Carmen, Percy Young 11/28/2024 19:55 EST [8]MRA Brain/Head w/o Contrast; MD Emiliano, Einat 11/29/2024 02:31 EST [9]MRI Brain w/ + w/o Contrast; MD Emiliano, nat 11/29/2024 02:31 EST [10]XR Chest 1 View; DO Oli, [facility] 11/29/2024 11:00 EST [11]XR Shoulder Complete 2+ Views Right; DO Oli, [facility] 11/29/2024 11:00 EST [12]Echo TransTHORacic TTE Complete w/ Cont; DO Acevedo Vincent A 11/30/2024 11:51 EST [13]CT Thorax w/ Contrast; DO Adkins Matthew D 11/30/2024 14:37 EST [14]VL Lower Ext Venous Duplex Bilateral; MD Antonella, Candi 12/01/2024 13:57 EST [15]PS CT Biopsy Bone Superficial; MD Melissa, Álvrao Villatoro 12/07/2024 12:49 EST [16]Echo TransTHORacic TTE Limited w/ Cont; MD Sharif, Ren Ibarra 12/07/2024 17:20 EST .Inpt Proc * MD Erin, Sudha W: MODIFY MD Khang, Get S: MODIFY, PERFORM MD Khang, Get Young: PERFORM Event Display: .Inpt Proc Authored Date: [id number] INPATIENT PROCEDURE Name: NANCY FORBES Patient Number: [id number] : 1945 Date of Service: 11/29/24 SURGEON: Dr. Sudha Khan DOCUMENT MANAGEMENT TECHNICIAN(s): Dr. Get Quiñonez, Dr. Thomas Bradford PREOPERATIVE DIAGNOSIS: 1.R side pleural effusion POSTOPERATIVE DIAGNOSIS: same OPERATION PERFORMED: 1.R side thoracic ultrasound 2. Therapeutic/diagnosticR side thoracentesis ANESTHESIA: Lidocaine 1% 5 cc COMPLICATIONS: None SPECIMENS: Cell count, cultures, cytology, glucose, LDH, protein, albumin, BNP on pleural fluid ESTIMATED BLOOD LOSS: None INDICATIONS: R pleural effusion FINDINGS: 1.R sided pleural effusion 2. Diaphragm, noted on US OPERATION: The procedure was performed in the patients room. A safety time out was performed including laterality. TheRhemithorax was prepped and draped after ultrasound identified the above findings and an appropriate site was chosen. 5cc of 1% lidocaine was used for topical anesthesia. A skin juliet was made and the [id number]-E-Zdudxfac catheter was inserted into the pleural space without difficulty. 1520 cc ofserous fluid was removed from the pleural space. The procedure was stopped due topain and coughing, likely indicative of trapped lung physiology. The catheter was removed and a dressing placed. The patient tolerated the procedure well. Post-procedure CXR is currently pending. Get Quiñonez MD PGY-4, Pulmonary/Critical Care Fellow INTERVENTIONAL PULMONARY ATTENDING: I have reviewed this procedure, I was not present for it. I agree with the above assessment and plan unless otherwise noted. JWT Electronic Signature on File Electronically Reviewed/Signed by: Get Quiñonez MD Author Signature Dt/Tm:11/29/2024 10:26 AM Resident Division of Pulmonary Medicine Electronically Reviewed/Signed by: Sudha Khan MD Cosigner Signature Dt/Tm: 11/29/2024 10:35 AM Professor, Medicine & Surgery Director, Interventional Pulmonary Medicine Fellowship Director, Interventional Pulmonology [facility], [place] [address] [facility] Anesthesia records * Services, CPDI: PERFORM Event Display: Sedation & Analgesia Record Authored Date: [id number] Patient Care team information Care Team Personnel Name: WOLFGANG Lizarraga, Mary Justice Position: Physician Asst Ext - Family Med Member Role: Primary Care Provider Address: [address] [place] [address] [address] [place] [address] [place] Care Team Related Persons Name: IRIS FORBES
--- OUTSIDE RECORDS SUMMARY | 2025-01-15 22:54 | External Medical Summary | Continuity of Care Document ---
Author Name Unknown Organization [address] Address [address] [place], [place] [id number] Care Team Providers Care Embosser Operator Name Role Phone Mary Lizarraga Primary Care Physician [phone] [id number] Date(s): 12/25/24 - 12/25/24 [facility] [address], [address] [place] [address] [phone] Encounter Diagnosis Breast cancer metastasized to multiple sites(Discharge Diagnosis) - 12/25/24 Adjustment reaction with anxiety and depression(Discharge Diagnosis) - 12/25/24 Cancer cachexia(Discharge Diagnosis) - 12/25/24 Takotsubo syndrome(Final) - Bilateral pleural effusion(Discharge Diagnosis) - 12/25/24 Fracture of glenoid process of right scapula(Discharge Diagnosis) - 12/25/24 Intraparenchymal hematoma of brain(Discharge Diagnosis) - 12/25/24 Multiple subsegmental pulmonary emboli without acute cor pulmonale(Discharge Diagnosis) - 12/25/24 Altered mental status(Discharge Diagnosis) - 12/25/24 Stress-induced cardiomyopathy(Discharge Diagnosis) - 12/25/24 Discharge Disposition: Home or Self Care Attending Physician: WOLFGANG Lizarraga Jessica A Encounter Type: Clinic Allergies, Adverse Reactions, Alerts Substance Criticality Severity Reaction Reaction Severity Status penicillins hives Diarrhea Active Allergy Not found in Search fall leaves Active shellfish diarrhea Active Pollen Itching of eye Swelling Active Trees itchy watery ey es, sinus problems more in the fall of the year, leaves Active Immunizations Given and Recorded Vaccine Date Status Refusal Reason SARS-CoV-2 mRNA ([employer] 12+) bivalent 1 08/07/22 R ecorded SARS-CoV-2 mRNA ([id number]) 2 04/16/22 Recorded SARS-CoV-2 (COVID-19) mRNA BNT-162b2 [...] information-source unspecified 7[facility] Comment[facility] 9Early/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 Medications acetaminophen 500 mg oral tablet Start: 12/11/24 7:38:00 AM EST, 2 tab, PO, q8h Start Date: 12/11/24 Status: Ordered Repeat number: 1 brivaracetam 50 mg oral tablet Start: 12/11/24 [...] 1, PRN: as needed for nausea/vomiting, Pharmacy: [id number] Start Date: 12/25/24 Stop Date: 01/14/25 Status: Ordered Quantity: 30.0 Unit: tab Repeat number: 2 PARoxetine 10 mg oral tablet Start: 12/25/24 12:25:00 PM EST, 1 tab, PO, Daily, Disp# 30 tab, Refills: 5, Pharmacy: [id number] Start Date: 12/25/24 Stop [...] qPM, Disp# 30 tab, Refills: 2, Pharmacy: [id number] Start Date: 12/25/24 Stop Date: 03/25/25 Status: Ordered Quantity: 30.0 Unit: tab Repeat number: 3 Mental Status 12/25/24 Barriers to Learning one year None evide nt Mandatory Health Literacy Documentation Yes Health Literacy Communication Barriers N ever Primary Language Portuguese Problem List Condition Confirmation Course Effective Dates [...] Effective Dates Health Status Clinical Service Informant Altered mental status Discharge Diagnosis 12/25/24 Non-Specified Bilateral pleural effusion Discharge Diagnosis 12/25/24 Non-Specified Intraparenchymal hematoma of brain Discharge Diagnosis 12/25/24 Non-Specified Breast cancer metastasized to multiple sites Discharge Diagnosis 12/25/24 Non-Specified Fracture of glenoid process of right scapula Discharge Diagnosis 12/25/24 Non-Specified Multiple subsegmental pulmonary emboli without acute cor pulmonale Discharge Diagnosis 12/25/24 Non-Specified Adjustment reaction with anxiety and depression Discharge Diagnosis 12/25/24 Non-Specified Cancer cachexia Discharge Diagnosis 12/25/24 Non-Specified Stress-induced cardiomyopathy Discharge Diagnosis 12/25/24 Non-Specified Procedures Procedure Date Related Diagnosis Body [...] 18 08/06/14 Completed Knee Surgery [address] [place] [address] Impression: 1. AP Spine L1-L2 T-score: -3.0 2. Femur neck left T-score: -2.8 3. Femur neck right T-score: -2.8 4. Femur tota left T-score: -3.2 5. Femur total right T-score: -3.1 6. Z-score: -1.4. Low BMD [address] [place] [address] Impression: ACR BI-RADS CATEGORY 1: NEGATIVE 1. [facility] Impression: ACR BI-RADS CATEGORY 1: NEGATIVE 1. [...] right 6 o'clock breast was performed with hobbies and crafts sales representative images submitted. There is s seroma [...] evidence of malignancy in the Left breast. [id number] Results Laboratory List Name Date Basic Metabolic Panel (BASIC METAB PANEL ) 12/25/24 Most recent to oldest [Reference Range]: 1 eGFR CKD-EPI [>60 mL/min/1.73 m2] 86 mL/ min/1.73 m2 (12/25/24 12:04 PM) Estimated CrCl 42.90 mL/min (12/25/24 8:21 PM) Anion Gap [5-14 mmol/L] 13 mmol/L (12/25/24 12:04 PM) BUN [6-23 mg/dL] 17 mg/dL (12/25/24 12:04 PM) Ca [8.4-10.2 mg/dL] 9.7 mg/dL (12/25/24 12:04 PM) Cl- [98-107 mmol/L] 99 mmol/L (12/25/24 12:04 PM) HCO3 [22-29 mmol/L] 25 mmol/L (12/25/24 12:04 PM) Cret [0.60-1.00 mg/dL] 0.72 mg/dL (12/25/24 12:04 PM) Glu [74-109 mg/dL] 117 mg/dL 1 *HI* (12/25/24 12:04 PM) K [3.5-5.1 mmol/L] 5.1 mmol/L (12/25/24 12:04 PM) Na [136-145 mmol/L] 137 mmol/L (12/25/24 12:04 PM) 1Result Comment: ADA recommendation for FASTING Serum/Plasma Glucose: Normal: 70-100 mg/dL Prediabetes: 100-125 mg/dL Diabetes: 126 mg/dL or higher Vital Signs Most recent to oldest [Reference Range]: 1 Patient Weight 42.2 kg (12/25/24 10:37 AM) Heart Rate 60 bpm (12/25/24 10:37 AM) Respiratory Rate 18 br/min (12/25/24 10:37 AM) Blood Pressure 136/84mmHg (12/25/24 10:37 AM) Cuff Pulse Pressure 52 mmHg (12/25/24 10:37 AM) BP Location # 1 Left Arm (12/25/24 10:37 AM) Social History Social History Type Response Tobacco Current every day sm oker, Cigarettes 1 Smoking Status Former Smoker, quit in last 30 days Sex Female Sex Representation Female (finding) 1Smokes 2-3 cigs per day. Patient Care team information Care Team Personnel Name: WOLFGANG Lizarraga, Mary Justice Position: Physician Vandat Hermilat - Family Med Member Role: Primary Care Provider Address: [address] [place] [address] Telecom: [phone] Care Team Related Persons Name: IRIS GOODEN Insurance Providers Guarantor name: NANCY BERKLEY Health Plan Information #: 1 Payer: [employer] P[employer] Member Number: [id number] Policy Number: NA Group Number: [id number] Health Plan Information #: 2 Payer: [employer] P[employer] Member Number: [id number] Policy Number: NA Group Number: NA Health Plan Information #: 3 Payer: MEDICARE Member Number: NA Policy Number: NA Group Number: NA
[2025-01-16] MEDS ORDERED: lisinopril 5 MG TAB PO SCH (09:00)
[2025-01-16] MEDS ORDERED: EMPAGLIFLOZIN 10 MG TAB PO SCH (09:00)
[2025-01-16] MEDS ORDERED: RIVAROXABAN 20 MG TAB PO SCH (09:00)
[2025-01-16] MEDS ORDERED: PARoxetine HCL 10 MG TAB PO SCH (09:00)
== END 2025-01-15 20:48 | disposition short-term general hospital (02) | DRG 308 ==
LOC: ED 08:32 → 2E 14:42 → 1E 17:19